=== PATIENT | female | born 1960 | race Caucasian/White ===

== ENCOUNTER → 2016-12-26 | Outpatient (CLI) | payer OTHER ==
--- NOTE | 2016-12-30 11:07 | MM ---
Reason for exam: screening (asymptomatic). Last mammogram was performed 1 year ago. History: Family history of breast cancer in aunt at age 47 and breast cancer in cousin. Benign left US cyst aspiration of the left breast, September 24, 2005. Benign US left CoreBiopsy of the left breast, September 24, 2005. Benign US left CoreBiopsy of the left breast, September 24, 2005. Took hormonal contraceptives for 4 years. Physical Findings: A clinical breast exam by your physician is recommended on an annual basis and results should be correlated with mammographic findings. MG Screening Mammo w CAD Bilateral CC and MLO view(s) were taken. Prior study comparison: December 26, 2015, bilateral MG screening mammo w CAD. December 07, 2014, bilateral MG diagnostic mammo w CAD NIK. December 01, 2013, bilateral MG screening mammo w CAD. The breast tissue is heterogeneously dense. This may lower the sensitivity of mammography. No significant changes when compared with prior studies. ASSESSMENT: Benign, BI-RAD 2 RECOMMENDATION: Routine screening mammogram of both breasts in 1 year.
== END | disposition home or self-care (01) ==
LOC: RADMAMWWP 09:51
PROVIDERS: ATTEND Family Medicine
DX: Z12.31 Encounter for screening mammogram for malignant neoplasm of breast (principal); Z80.3 Family history of malignant neoplasm of breast

== ENCOUNTER 2017-11-12 08:31 | Emergency (ER) | payer OTHER ==
--- NOTE | 2017-11-12 09:09 | ED ---
General Adult HPI - General Chief complaint: Chest Pain Stated complaint: Chest Pain Time Seen by Provider: 11/12/17 08:37 Source: patient, RN notes reviewed, old records reviewed Mode of arrival: EMS Limitations: no limitations - History of Present Illness Initial comments: This is a 77-year-old female to the ER for evaluation. This patient does say for evaluation regards to chest pain, abdominal pain. Pain radiating from her belly up to her throat. Patient never had similar issue of similar pain. Patient does suffer from fibromyalgia. Mild nausea no vomiting. No recent fevers no travel history no significant injuries. Patient denies any modifying factors for pain. Pain awoke her from sleep this morning and has been persistent, mildly worsening. She has had prior surgical history including gallbladder surgery. Pain is severe in abdomen going to her throat, feels polina aching pain - Related Data Home Medications Medication Instructions Recorded Confirmed Chlorthalidone [Hygroton] 25 mg PO DIRECTED 07/20/15 11/12/17 Cyclobenzaprine [Flexeril] 10 mg PO HS 07/20/15 11/12/17 Ergocalciferol [Vitamin D2] 50,000 unit PO Q7D 07/20/15 11/12/17 Ferrous Sulfate [Feosol] 325 mg PO DAILY 07/20/15 11/12/17 Folic Acid 1 mg PO DAILY 07/20/15 11/12/17 Hydroxychloroquine Sulfate 200 mg PO BID 07/20/15 11/12/17 [Plaquenil] Methotrexate Sodium [Methotrexate] 25 mg PO Q7D 07/20/15 11/12/17 Acetaminophen [Tylenol Arthritis] 650 mg PO Q8H PRN 11/12/17 11/12/17 Adalimumab [Humira Pen] 40 mg SQ [id number] 11/12/17 11/12/17 Albuterol Inhaler [Ventolin Hfa 2 puff INHALATION RT-Q6H PRN 11/12/17 11/12/17 Inhaler] Gabapentin [Neurontin] 300 mg PO BID@0800,1200 11/12/17 11/12/17 Gabapentin [Neurontin] 600 mg PO HS 11/12/17 11/12/17 Ipratropium [place] [Atrovent Hfa] 2 puff INHALATION RT-QID PRN 11/12/17 Lisinopril [Prinivil] 10 mg PO DIRECTED 11/12/17 11/12/17 Oxybutynin Chloride [Ditropan] 5 mg PO TID 11/12/17 11/12/17 Potassium Chloride [Klor-Con 10] 10 meq PO DAILY 11/12/17 11/12/17 QUEtiapine FUMARATE [SEROquel] 25 - 50 mg PO HS 11/12/17 11/12/17 Ranitidine HCl [Zantac] 150 mg PO BID 11/12/17 11/12/17 Sertraline HCl [Zoloft] 25 mg PO DAILY 11/12/17 11/12/17 Allergies Allergy/AdvReac Type Severity Reaction Status Date / Time phenobarbital Allergy rash & Verified 11/12/17 09:23 swells up Review of Systems ROS Statement: Those systems with pertinent positive or pertinent negative responses have been documented in the HPI. ROS Other: All systems not noted in ROS Statement are negative. Past Medical History Past Medical History: Hypertension, Rheumatoid Arthritis (RA) History of Any Multi-Drug Resistant Organisms: None Reported Past Surgical History: Section, Cholecystectomy Past Psychological History: No Psychological Hx Reported Smoking Status: Never smoker Past Alcohol Use History: None Reported Past Drug Use History: None Reported General Exam Limitations: no limitations General appearance: alert, anxious, in distress Head exam: Present: atraumatic, normocephalic, normal inspection Eye exam: Present: normal appearance, PERRL, EOMI. Absent: scleral icterus, conjunctival injection, periorbital swelling ENT exam: Present: normal exam, mucous membranes moist Neck exam: Present: normal inspection. Absent: tenderness, meningismus, lymphadenopathy Respiratory exam: Present: normal lung sounds bilaterally. Absent: respiratory distress, wheezes, rales, rhonchi, stridor Cardiovascular Exam: Present: regular rate, normal rhythm, normal heart sounds. Absent: systolic murmur, diastolic murmur, rubs, gallop, clicks GI/Abdominal exam: Present: soft, normal bowel sounds. Absent: distended, tenderness, guarding, rebound, rigid Extremities exam: Present: normal inspection, full ROM, normal capillary refill. Absent: tenderness, pedal edema, joint swelling, calf tenderness Back exam: Present: normal inspection Neurological exam: Present: alert, oriented X3, CN II-XII intact Psychiatric exam: Present: normal affect, normal mood Skin exam: Present: warm, dry, intact, normal color. Absent: rash Course Vital Signs 11/12/17 11/12/17 08:33 09:48 Temperature 98.5 F Pulse Rate 86 82 Respiratory 18 18 Rate Blood Pressure 149/78 148/103 O2 Sat by Pulse 98 95 Oximetry - Reevaluation(s) Reevaluation #1: 11/12/17 09:45 Patient has positive pain control, still complaining of mild nausea with epigastric abdominal pain Reevaluation #2: 11/12/17 10:45 Spoke with radiology regarding patient's findings Reevaluation #3: 11/12/17 10:45 Spoke with patient's family and patient regarding findings, questions answered regarding severity of illness, patient aware EKG Findings - EKG Comments: EKG Findings:: EKG shows sinus rhythm rate of 77, NM 164, QRS 82, QTc 466 Medical Decision Making - Medical Decision Making 57 female the ER for evaluation positive severe epigastric bowel pain chest pain. Positive significant irritation. Spoke with [facility] excess patient in transfer. Patient's blood pressure is stabilized here in the emergency room, patient will be transferred to [facility] - Lab Data Result diagrams: 11/12/17 08:43 11/12/17 08:43 Lab Results 11/12/17 11/12/17 11/12/17 Range/Units 08:43 08:43 08:43 WBC 8.0 (3.8-10.6) k/uL RBC 4.16 (3.80-5.40) m/uL Hgb 13.5 (11.4-16.0) gm/dL Hct 40.0 (34.0-46.0) % MCV 96.1 (80.0-100.0) fL MCH 32.4 (25.0-35.0) pg MCHC 33.7 (31.0-37.0) g/dL RDW 14.1 (11.5-15.5) % Plt Count 195 (150-450) k/uL Neutrophils % 66 % Lymphocytes % 25 % Monocytes % 5 % Eosinophils % 3 % Basophils % 1 % Neutrophils # 5.2 (1.3-7.7) k/uL Lymphocytes # 2.0 (1.0-4.8) k/uL Monocytes # 0.4 (0-1.0) k/uL Eosinophils # 0.2 (0-0.7) k/uL Basophils # 0.1 (0-0.2) k/uL PT (9.0-12.0) sec INR (<1.2) APTT (22.0-30.0) sec D-Dimer (<0.60) mg/L FEU Sodium 142 (137-145) mmol/L Potassium 4.2 (3.5-5.1) mmol/L Chloride 107 (98-107) mmol/L Carbon Dioxide 28 (22-30) mmol/L Anion Gap 7 mmol/L BUN 16 (7-17) mg/dL Creatinine 1.06 H (0.52-1.04) mg/dL Est GFR (CKD-EPI)AfAm 69 (>60 ml/min/1.73 sqM) Est GFR (CKD-EPI)NonAf 59 (>60 ml/min/1.73 sqM) Glucose 99 (74-99) mg/dL Calcium 9.7 (8.4-10.2) mg/dL Magnesium 2.1 (1.6-2.3) mg/dL Total Bilirubin 0.3 (0.2-1.3) mg/dL AST 28 (14-36) U/L ALT 31 (9-52) U/L Alkaline Phosphatase 56 (38-126) U/L Total Creatine Kinase 112 (30-135) U/L CK-MB (CK-2) 0.8 (0.0-2.4) ng/mL CK-MB (CK-2) Rel Index 0.7 Troponin I <0.012 (0.000-0.034) ng/mL NT-Pro-B Natriuret Pep pg/mL Total Protein 6.7 (6.3-8.2) g/dL Albumin 4.0 (3.5-5.0) g/dL Lipase 131 (23-300) U/L 11/12/17 11/12/17 Range/Units 08:43 08:43 WBC (3.8-10.6) k/uL RBC (3.80-5.40) m/uL Hgb (11.4-16.0) gm/dL Hct (34.0-46.0) % MCV (80.0-100.0) fL MCH (25.0-35.0) pg MCHC (31.0-37.0) g/dL RDW (11.5-15.5) % Plt Count (150-450) k/uL Neutrophils % % Lymphocytes % % Monocytes % % Eosinophils % % Basophils % % Neutrophils # (1.3-7.7) k/uL Lymphocytes # (1.0-4.8) k/uL Monocytes # (0-1.0) k/uL Eosinophils # (0-0.7) k/uL Basophils # (0-0.2) k/uL PT 10.1 (9.0-12.0) sec INR 1.0 (<1.2) APTT 21.0 L (22.0-30.0) sec D-Dimer 13.32 H (<0.60) mg/L FEU Sodium (137-145) mmol/L Potassium (3.5-5.1) mmol/L Chloride (98-107) mmol/L Carbon Dioxide (22-30) mmol/L Anion Gap mmol/L BUN (7-17) mg/dL Creatinine (0.52-1.04) mg/dL Est GFR (CKD-EPI)AfAm (>60 ml/min/1.73 sqM) Est GFR (CKD-EPI)NonAf (>60 ml/min/1.73 sqM) Glucose (74-99) mg/dL Calcium (8.4-10.2) mg/dL Magnesium (1.6-2.3) mg/dL Total Bilirubin (0.2-1.3) mg/dL AST (14-36) U/L ALT (9-52) U/L Alkaline Phosphatase (38-126) U/L Total Creatine Kinase (30-135) U/L CK-MB (CK-2) (0.0-2.4) ng/mL CK-MB (CK-2) Rel Index Troponin I (0.000-0.034) ng/mL NT-Pro-B Natriuret Pep 237 pg/mL Total Protein (6.3-8.2) g/dL Albumin (3.5-5.0) g/dL Lipase (23-300) U/L - Radiology Data Radiology results: report reviewed (CT angio chest abd pelvis is positive for aortic dissection), image reviewed Critical Care Time Critical Care Time: Yes Total Critical Care Time: 31 Disposition Clinical Impression: Acute thoracic aortic dissection Disposition: OTHER INSTITUTION NOT DEFINED Condition: Critical Is patient prescribed a controlled substance at d/c from ED?: No Referrals: Shana Schmidt DO [Primary Care Provider] - 1-2 days - Out of Hospital Transfer - Req. Specs Out of Hospital Transfer - Requested Specifics: Other Emergency Center ([facility])
[2017-11-12 09:10] LABS: Basophils # (A) 0.1 k/uL (0-0.2); Basophils % (A) 1 %; Eosinophils # (A) 0.2 k/uL (0-0.7); Eosinophils % (A) 3 %; HGB 13.5 gm/dL (11.4-16.0); Lymphocytes % (A) 25 %; MCH 32.4 pg (25.0-35.0); MCHC 33.7 g/dL (31.0-37.0); MCV 96.1 fL (80.0-100.0); Mean Platelet Volume 7.1; Monocytes # (A) 0.4 k/uL (0-1.0); Monocytes % (A) 5 %; Neutrophils # (A) 5.2 k/uL (1.3-7.7); Neutrophils % (A) 66 %; Platelet Count 195 k/uL (150-450); RBC 4.16 m/uL (3.80-5.40); RDW 14.1 % (11.5-15.5)
--- NOTE | 2017-11-12 09:11 | XR ---
EXAMINATION TYPE: XR chest 2V DATE OF EXAM: 11/12/2017 COMPARISON: Prior chest x-ray 11/26/2014 HISTORY: Chest pain, hypertension TECHNIQUE: Frontal and lateral views of the chest are obtained. FINDINGS: Patient is rotated and there are overlying cardiac leads. Minimal patchy basilar density ma y reflect atelectasis or scar. There is no focal air space opacity, pleural effusion, or pneumothorax seen. The cardiac silhouette size is within normal limits. There is thoracic spondylosis. The oss eous structures are intact. IMPRESSION: There may be some minimal basilar atelectasis or scarring.
[2017-11-12] MEDS ORDERED: MORPHINE SULFATE 4 MG/ML SYRINGE IVP STA (09:18)
[2017-11-12] MEDS ORDERED: LORazepam 2 MG/ML INJ IV STA (09:18)
[2017-11-12 09:20] LABS: Calcium 9.7 mg/dL (8.4-10.2); Magnesium 2.1 mg/dL (1.6-2.3); Potassium 4.2 mmol/L (3.5-5.1); Total Bilirubin 0.3 mg/dL (0.2-1.3); Total Protein 6.7 g/dL (6.3-8.2)
[2017-11-12] MEDS ORDERED: ONDANSETRON 4 MG/2 ML VIAL IVP STA (09:23)
[2017-11-12 09:32] LABS: Prothrombin Time 10.1 sec (9.0-12.0)
[2017-11-12 09:33] LABS: Creatine Kinase 112 U/L (30-135)
[2017-11-12 09:41] LABS: D-Dimer 13.32 mg/L FEU (<0.60)
[2017-11-12 09:45] LABS: Creatine Kinase MB 0.8 ng/mL (0.0-2.4); Troponin I <0.012 ng/mL (0.000-0.034)
[2017-11-12] MEDS ORDERED: LABETALOL 5 MG/ML VIAL MDV IVP STA (10:51)
[2017-11-12] MEDS ORDERED: METOPROLOL TARTRATE 5 MG/5 ML VIAL IVP STA (10:51)
--- NOTE | 2017-11-12 10:54 | CT ---
EXAMINATION TYPE: CT angio chest, CT abdomen pelvis w con DATE OF EXAM: 11/12/2017 COMPARISON: Radiograph same day HISTORY: 57-year-old female Chest and Abdominal pain TECHNIQUE: Contiguous axial scanning of the chest performed with IV Contrast, patient injected with 1 00 ml mL of Isovue 370. Coronal/sagittal MIP reconstructions performed. Scanning was continued along the abdomen and pelvis with contrast. Delayed images through the kidneys and coronal/sagittal reconst ructions performed. CT DLP: 1967.70 mGycm Automated exposure control for dose reduction was used. FINDINGS: Chest: Heart normal size with trace pericardial effusion. The ascending aorta is ectatic at 3.8 cm. There is acute intramural hematoma extending from the proxi mal arch at the level of the brachiocephalic artery. Acute intramural hematoma extends down into the upper abdomen. The descending thoracic aorta is ectatic at 2.8 cm with the opacified lumen measuring 1.8 cm. Borderline optimal satisfactory pulmonary arterial opacification. There is some limitations with resp iratory motion at the lung bases. No definite pulmonary embolus. Dependent atelectasis posterior lung bases. No pleural effusion. Calcified granuloma anterior right m idlung. No consolidation or pleural effusion. Some calcified lymph nodes in the mediastinum and rob compatible with prior granulomatous disease. ABDOMEN: The acute intramural hematoma transformed into a shelly dissection just proximal to the celiac axis or igin. The celiac axis, SMA, and left renal artery arise from the true lumen. The right renal artery a lso appears to extend from the true lumen but some motion limits optimal assessment. There is symmetr ic uptake and excretion of contrast from both kidneys. Difficult to say if the RAYMOND arises from the true or false lumen, axial image 44. Dissection flap exte nds to the aortic bifurcation. Some motion limits assessment as to if the dissection extends into the common iliac arteries, axial image 59 on the right and 58 on the left could be motion artifact or re present subtle dissection flap. There is equal enhancement in both the true and false lumens noted. Status post cholecystectomy. Mild prominence to the bile duct but with normal distal tapering. Adrena l glands, spleen, and pancreas appear within normal limits. Subcentimeter hypodensity medial mid to l ower pole right kidney too small for accurate CT characterization, likely cyst. Tiny fatty umbilical hernia. No dilated small bowel, free fluid, or free air. Mild to moderate stool burden and occasional left-sided colonic diverticulosis. Pelvis: Bladder urine distended. Uterus and ovaries are visualized. No abnormal fluid collection in the pelvi s or pelvic lymphadenopathy. Bones: Osteitis pubis. Right L5 hemisacralization. Degenerative changes lower lumbar spine. Additional degen erative changes of both shoulders. No osseous destructive process seen. IMPRESSION: 1. EXAM POSITIVE FOR ACUTE INTRAMURAL HEMATOMA INVOLVING THE THORACIC AORTA EXTENDING FROM THE PROXIM AL ARCH AT THE LEVEL OF THE BRACHIOCEPHALIC ARTERY. SATISFACTORY ARCH GREAT VESSEL OPACIFICATION. 2. THE INTRAMURAL HEMATOMA TRANSFORMS INTO A SHELLY DISSECTION IN THE UPPER ABDOMEN AND EXTENDS DOWN T O THE AORTIC BIFURCATION. THE CELIAC AXIS, SMA, AND BILATERAL RENAL ARTERIES ARISE FROM THE TRUE LUME N AND ARE APPROPRIATELY PERFUSED. ONLY THE RAYMOND IS DIFFICULT TO ASSESS AND EXTENDS FROM THE JUNCTION O F BOTH TRUE AND FALSE LUMENS. BOTH TRUE AND FALSE LUMEN HAVE EQUIVALENT OPACIFICATION. 3. UNABLE TO ADEQUATELY DETERMINE IF THE DISSECTION EXTENDS INTO THE COMMON ILIAC ARTERIES. THERE IS EITHER SOME ARTIFACT IN THE COMMON ILIAC ARTERIES OR SUBTLE DISSECTION FLAPS. Critical findings called to Dr. Roach in the ER at 10:35 AM.
[2017-11-12 11:06] VITALS: BP 145/89; PULSE 69; RESP 16; TEMP 97.8
== END 2017-11-12 11:04 | disposition other institution (70) ==
LOC: EC 08:31
DX: I71.01 Dissection of thoracic aorta (principal); R07.9 Chest pain, unspecified; I10 Essential (primary) hypertension; M06.9 Rheumatoid arthritis, unspecified; R10.13 Epigastric pain; R11.0 Nausea; Z79.899 Other long term (current) drug therapy; Z88.8 Allergy status to other drugs, medicaments and biological substances
CPT/HCPCS: 36415; 71046; 71275; 74177; 80053; 82550; 82553; 83690; 83735; 83880; 84484; 85025; 85379; 85610; 85730; 93005; 96374; 96375; 99291

== ENCOUNTER → 2018-01-13 | Outpatient (CLI) | payer OTHER ==
--- NOTE | 2018-01-13 12:01 | CT ---
EXAMINATION TYPE: CT chest abdomen w con DATE OF EXAM: 01/13/2018 COMPARISON: CTA chest November 12, 2017. CT abdomen and pelvis same date. HISTORY: Epigastric pain and left-sided chest pain. Known dissecting descending aorta. CT DLP: 1648 mGycm. Automated Exposure Control for Dose Reduction was Utilized. CONTRAST: CT scan of the thorax and abdomen are performed with oral and with IV Contrast, patient injected with 100 mL of Isovue 300. FINDINGS: CHEST: LUNGS: The lungs are grossly clear, there is no concerning parenchymal mass or nodule identified. T here is no pleural effusion or pneumothorax seen. The tracheobronchial tree is patent. MEDIASTINUM: There are no new greater than 1 cm noncalcified hilar or mediastinal lymph nodes. There are calcified AP window and right tracheobronchial lymph nodes redemonstrated. No cardiomegaly or pe ricardial effusion is seen. VASCULAR: Previously visualized intramural hematoma in the aortic arch is not clearly seen on current study nor involvement in the descending thoracic aorta is identified or is definitively less promine nt versus prior. The upper abdominal aorta shows less prominent intramural hematoma also with focal p osterior outpouching possible contained dissection axial image 52. There is visualization of dissecti on in the mid to distal aspects of the abdominal aorta seen best coronal image 40 with persistent con trast opacification into the false lumen, area of involvement is roughly 6 cm craniocaudal dimension by 2 cm transversely and the false lumen at this level. Dissection flap does not extend into the comm on iliac arterial bifurcation on current or prior study. Slight ectasia to the right common iliac art moises is unchanged from prior exam measuring up to 1.4 cm. No suspicious retroperitoneal fluid collecti on identified. There is patency of the celiac axis, SMA, RAYMOND, and bilateral renal arteries with right side originating from the false lumen. Slightly more prominent intramural hematoma suspected near IM A origin axial image 75 with some irregular soft tissue causing obliteration of fat plane at this lev el axial image 75. Exam slightly suboptimal as dissection protocol was not utilized. LIVER/GB: Cholecystectomy clips are redemonstrated. PANCREAS: No significant abnormality is seen. SPLEEN: No significant abnormality is seen. ADRENALS: No significant abnormality is seen. KIDNEYS: Subcentimeter low dense lesion right kidney medially mid to lower pole level series 7 image 33 is too small to further characterize but presumed benign. BOWEL: Oral contrast does not reach colonic level. There is no suspicious small or large bowel dilata tion. LYMPH NODES: No greater than 1cm abdominal lymph nodes are appreciated. OSSEOUS STRUCTURES: Slight S-shaped scoliosis to the thoracolumbar spine is present. There is mild t o moderate multilevel anterior and lateral spurring throughout the thoracic spine. OTHER: No significant additional abnormality is seen. IMPRESSION: Suboptimal study, there is improvement in intramural hematoma and length of aortic dissec tion with more focal dissection now identified in the mid to distal aorta. Slightly more prominent fa lse lumen however is noted at this level. Slightly more prominent irregularity near RAYMOND origin is not ed. Advise referral or review with cardiothoracic and/or endovascular surgeon due to change from prio r study.
== END | disposition home or self-care (01) ==
LOC: RADCTMAIN 09:32
PROVIDERS: ATTEND Family Medicine
DX: I71.02 Dissection of abdominal aorta (principal); I77.89 Other specified disorders of arteries and arterioles; I99.8 Other disorder of circulatory system
CPT/HCPCS: 71260; 74160; Q9967

== ENCOUNTER → 2018-02-09 | Outpatient (CLI) | payer OTHER ==
--- NOTE | 2018-02-09 16:52 | CONS ---
CONSULTATION REASON FOR EVALUATION: Sleep apnea. 37-year-old female patient, currently having trouble with her sleep. She is a poor historian. She is unable to give me details. She tells me that she is in pain and she wakes up frequently in the middle of the night either because of pain or sometimes for reasons that she is not sure. She is not clear if she snores or she has any witnessed apneas as the patient sleeps alone at home. She wakes up with dry mouth and she is quite tired and sleepy during the day. She takes frequent naps. Irvine Score is at 20. She has rheumatoid arthritis and fibromyalgia and has chronic pain. She was recently hospitalized at [facility] for an aortic arch and abdominal aortic aneurysm dissection. This was a stable dissection and no further surgical intervention was warranted and the patient was placed on beta blockers. She is not having any nausea or vomiting. No abdominal pain. No chest pain. Hemodynamically stable. Slightly bradycardic with a heart rate in the mid/high 40s. No recent weight gain or weight loss. No history of insomnia. No anxiety or depression. PAST MEDICAL HISTORY: 1. Aortic arch/abdominal aortic dissection. 2. RA. 3. Fibromyalgia. 4. Hypertension. 5. Depression. 6. Chronic back pain. PAST SURGICAL HISTORY: Includes cholecystectomy and . DRUG ALLERGIES: TO PHENOBARBITAL. OUTPATIENT MEDICATION: Include Seroquel, baclofen, Lipitor, hydrochloroquine. Ferrous sulfate, ranitidine, Zoloft, metoprolol, folate and Lisinopril. SOCIAL HISTORY: The patient is a nonsmoker. No history of alcohol. No history of IV drugs. FAMILY HISTORY: Negative for sleep apnea. REVIEW OF SYSTEMS: 12-point review of system was done and positive findings are mentioned above history of present illness. The patient goes to bed around 10:00 p.m. and she wakes up between 6 and 6:30 am in the morning. Her sleep is fragmented. She has been waking up tired and she feels sleepy during the day. She has no dentures. She has no bed partners. She sleeps in a comfortable bed and she sleeps on her side. Her weight has been stable. Her sleep is fragmented and she wakes up multiple occasions throughout the night. PHYSICAL EXAMINATION: BP is 127/74, pulse 49, respirations 16, temperature 98.6. Saturation 98% on room air. Height is 5 feet 6 inches. Weight is 210. Irvine score 20. BMI 33.8, neck size 16 inches. GENERAL APPEARANCE: Calm, comfortable. Head is atraumatic, normocephalic. NECK: Supple. Short neck. Crowding of posterior pharynx. There is no goiter or neck mass. Mallampati class IV. She has micrognathia and she has an obvious overbite. LUNGS: Clear to auscultation. HEART: Sounds regular rhythm. Normal S1, S2. No S3. No murmurs. ABDOMEN: Soft, nontender. No organomegaly. EXTREMITIES: No edema. No cyanosis or clubbing. Neurological: Alert and oriented times three. No focal neurological deficits. PSYCHIATRIC: Negative for anxiety or depression. IMPRESSION: 1. Excessive daytime sleepiness with sleep fragmentation rule out obstructive sleep apnea especially with the presence of anatomic features which include obesity Mallampati class 4. Overbite and micrognathia. 2. Chronic pain resulting in a sleep fragmentation. 3. Fibromyalgia. 4. Rheumatoid arthritis. 5. Recent hospitalization for thoracic and abdominal aortic dissection. This is a stable dissection. 6. Hypertension. 7. Chronic back pain. 8. Hyperlipidemia. PLAN: 1. Proceed with a screening polysomnogram. 2. We will review the results of sleep study. 3. We will make further recommendations accordingly. MMODL / IJN: [id number] /
== END ==
LOC: SLEEP 14:30
PROVIDERS: ATTEND Internal Medicine Critical Care Medicine
DX: R06.83 Snoring (principal); G47.10 Hypersomnia, unspecified; E66.9 Obesity, unspecified; G89.29 Other chronic pain; M79.7 Fibromyalgia; M06.9 Rheumatoid arthritis, unspecified; I71.03 Dissection of thoracoabdominal aorta; I10 Essential (primary) hypertension; M54.9 Dorsalgia, unspecified; E78.5 Hyperlipidemia, unspecified; Z79.899 Other long term (current) drug therapy; Z88.8 Allergy status to other drugs, medicaments and biological substances
CPT/HCPCS: 99211

== ENCOUNTER 2018-06-13 14:43 | Emergency (ER) | payer OTHER ==
[2018-06-13 14:47] VITALS: RESP 18; TEMP 97.6
--- NOTE | 2018-06-13 15:20 | XR ---
Left hand 3 views. History pain. Comparison none. FINDINGS: There is a nondisplaced transverse fracture across the base of the distal phalanx of the ring finger left hand. There is soft tissue swelling. There is no dislocation. There is moderate narrowing and sp urring at the first carpometacarpal joint. IMPRESSION: Osteoarthritis at the base of the thumb. Nondisplaced ring finger fracture as above.
--- NOTE | 2018-06-13 15:23 | ED ---
Upper Extremity HPI - General Chief Complaint: Extremity Injury, Upper Stated Complaint: finger injury Time Seen by Provider: 06/13/18 15:09 Source: patient Mode of arrival: wheelchair Limitations: no limitations - History of Present Illness Initial Comments: Patient's 57-year-old female who presents emergency department today for days after left ring finger injury. Patient reports that she had it smashed within the door handle. Patient reports that her nail fell off. Patient's that she did have some bleeding afterwards. The bleeding stopped. She continued complaining of increased pain over the distal tip of the finger. Tetanus shot is up-to-date. She is currently on antibiotics for upper respiratory infection. - Related Data Home Medications Medication Instructions Recorded Confirmed Chlorthalidone [Hygroton] 25 mg PO DIRECTED 07/20/15 11/12/17 Cyclobenzaprine [Flexeril] 10 mg PO HS 07/20/15 11/12/17 Ergocalciferol [Vitamin D2] 50,000 unit PO Q7D 07/20/15 11/12/17 Ferrous Sulfate [Feosol] 325 mg PO DAILY 07/20/15 11/12/17 Folic Acid 1 mg PO DAILY 07/20/15 11/12/17 Hydroxychloroquine Sulfate 200 mg PO BID 07/20/15 11/12/17 [Plaquenil] Methotrexate Sodium [Methotrexate] 25 mg PO Q7D 07/20/15 11/12/17 Acetaminophen [Tylenol Arthritis] 650 mg PO Q8H PRN 11/12/17 11/12/17 Adalimumab [Humira Pen] 40 mg SQ [id number] 11/12/17 11/12/17 Albuterol Inhaler [Ventolin Hfa 2 puff INHALATION RT-Q6H PRN 11/12/17 11/12/17 Inhaler] Gabapentin [Neurontin] 300 mg PO BID@0800,1200 11/12/17 11/12/17 Gabapentin [Neurontin] 600 mg PO HS 11/12/17 11/12/17 Ipratropium [place] [Atrovent Hfa] 2 puff INHALATION RT-QID PRN 11/12/17 Lisinopril [Prinivil] 10 mg PO DIRECTED 11/12/17 11/12/17 Oxybutynin Chloride [Ditropan] 5 mg PO TID 11/12/17 11/12/17 Potassium Chloride [Klor-Con 10] 10 meq PO DAILY 11/12/17 11/12/17 QUEtiapine FUMARATE [SEROquel] 25 - 50 mg PO HS 11/12/17 11/12/17 Ranitidine HCl [Zantac] 150 mg PO BID 11/12/17 11/12/17 Sertraline HCl [Zoloft] 25 mg PO DAILY 11/12/17 11/12/17 Allergies Allergy/AdvReac Type Severity Reaction Status Date / Time phenobarbital Allergy rash & Verified 06/13/18 14:47 swells up Review of Systems ROS Statement: Those systems with pertinent positive or pertinent negative responses have been documented in the HPI. ROS Other: All systems not noted in ROS Statement are negative. Past Medical History Past Medical History: Hypertension, Rheumatoid Arthritis (RA) History of Any Multi-Drug Resistant Organisms: None Reported Past Surgical History: Section, Cholecystectomy Past Psychological History: No Psychological Hx Reported Smoking Status: Never smoker Past Alcohol Use History: None Reported Past Drug Use History: None Reported General Exam - General Exam Comments Initial Comments: 57-year-old female. Alert and oriented. No distress. Limitations: no limitations General appearance: alert, in no apparent distress Head exam: Present: atraumatic, normocephalic, normal inspection Eye exam: Present: normal appearance, PERRL, EOMI. Absent: scleral icterus, conjunctival injection, periorbital swelling ENT exam: Present: normal exam, mucous membranes moist Neck exam: Present: normal inspection. Absent: tenderness, meningismus, lymphadenopathy Respiratory exam: Present: normal lung sounds bilaterally. Absent: respiratory distress, wheezes, rales, rhonchi, stridor Cardiovascular Exam: Present: regular rate, normal rhythm, normal heart sounds. Absent: systolic murmur, diastolic murmur, rubs, gallop, clicks GI/Abdominal exam: Present: soft, normal bowel sounds. Absent: distended, tenderness, guarding, rebound, rigid Extremities exam: Present: normal inspection, full ROM, normal capillary refill. Absent: tenderness, pedal edema, joint swelling, calf tenderness Left Upper Arm exam: Present: normal inspection, full ROM Elbow exam: Present: normal inspection, full ROM Forearm Wrist exam: Present: normal inspection, full ROM Hand Wrist exam: Present: normal inspection, full ROM, tenderness, swelling ( over dIP of left 4th digit. ) Hand L/R Back: 1 - acrylic nail avulsion, small laceration over cutticle. Vascular: Present: normal capillary refill Back exam: Present: normal inspection Neurological exam: Present: alert, oriented X3, CN II-XII intact Psychiatric exam: Present: normal affect, normal mood Course Vital Signs 06/13/18 06/13/18 14:43 15:39 Temperature 97.6 F Pulse Rate 63 77 Respiratory 18 18 Rate Blood Pressure 90/57 110/58 O2 Sat by Pulse 96 99 Oximetry Medical Decision Making - Medical Decision Making Patient is a 57 year old female complains of left fourth finger injury. Patient crushed it in door 4 days ago. Patient has swelling and pain to DIP of left fourth digit. Xray shows non displaced fracture of the DIP. She has small abrasion over the fingernail bed. She is currently on antibiotics at this time for URI. Discussed completing his antibiotics. Discussed falling up with hand specialist. Her nail bed is intact but acrylic nail was removed. I discussed strict return parameters with close follow-up with PCP. - Radiology Data Radiology results: report reviewed Hand x-ray shows osteophytes of the face. Nondisplaced ring fracture is noted. Transverse fracture of the base of the distal tip of the ring finger of the hand. Disposition Clinical Impression: Phalanx, distal fracture of finger, Open fracture Disposition: HOME SELF-CARE Condition: Good Instructions (If sedation given, give patient instructions): Finger Fracture ( ED) Additional Instructions: Patient is advised to follow-up with hand specialist. Wear the splint. Please complete antibiotics that you are already taking. Patient should return to the emergency department if any alarming signs or symptoms occur. Is patient prescribed a controlled substance at d/c from ED?: No Referrals: Shana Schmidt DO [Primary Care Provider] - 1-2 days Noé Wilkins DO [Medical Doctor] - 1-2 days Time of Disposition: 15:31
[2018-06-13 15:40] VITALS: BP 110/58; PULSE 77
== END 2018-06-13 15:40 | disposition home or self-care (01) ==
LOC: EC 14:43
DX: S62.665B Nondisplaced fracture of distal phalanx of left ring finger, initial encounter for open fracture (principal); M25.742 Osteophyte, left hand; J06.9 Acute upper respiratory infection, unspecified; I10 Essential (primary) hypertension; M06.9 Rheumatoid arthritis, unspecified; Z88.8 Allergy status to other drugs, medicaments and biological substances; Z79.899 Other long term (current) drug therapy; W23.0XXA Caught, crushed, jammed, or pinched between moving objects, initial encounter
CPT/HCPCS: 99283

== ENCOUNTER 2018-06-30 14:54 | Emergency (ER) | payer OTHER ==
[2018-06-30 15:09] VITALS: RESP 18
[2018-06-30] MEDS ORDERED: CEPHALEXIN 500 MG CAP PO STA (15:54)
[2018-06-30] MEDS ORDERED: CEPHALEXIN 500MG STARTER PACK 4 CAP BTL PO STA (15:54)
[2018-06-30] MEDS ORDERED: SULFAMETH-TMP DS STARTER PACK 2 TAB BTL PO STA (15:54)
[2018-06-30] MEDS ORDERED: SULFAMETHOX-TMP 800-160MG 1 EACH TAB PO STA (15:54)
--- NOTE | 2018-06-30 16:08 | ED ---
Upper Extremity HPI - General Chief Complaint: Skin/Abscess/Foreign Body Stated Complaint: Finger injury Time Seen by Provider: 06/30/18 15:33 Source: patient Mode of arrival: ambulatory Limitations: no limitations - History of Present Illness Initial Comments: This is a 57-year-old female the ER for evaluation of left middle finger pain. Patient was diagnosed with fracture about a month ago she was placed in a splint she was on antibiotics and was seen by orthopedics. Patient started last night she developed more pain in that right fingertip. Without any new trauma, initial troponin showing hand in a door. She states redness increased last night into today. MD Complaint: Injury to:: left, finger -: month(s) Other Extremity Injury: Fingers: Left (Finger) Other Injuries: none Handedness: right Place: home Severity scale (1-10): 6 Improves With: immobilization Worsens With: movement of extremity Context: direct blow Associated Symptoms: denies other symptoms - Related Data Home Medications Medication Instructions Recorded Confirmed Chlorthalidone [Hygroton] 25 mg PO DIRECTED 07/20/15 11/12/17 Cyclobenzaprine [Flexeril] 10 mg PO HS 07/20/15 11/12/17 Ergocalciferol [Vitamin D2] 50,000 unit PO Q7D 07/20/15 11/12/17 Ferrous Sulfate [Feosol] 325 mg PO DAILY 07/20/15 11/12/17 Folic Acid 1 mg PO DAILY 07/20/15 11/12/17 Hydroxychloroquine Sulfate 200 mg PO BID 07/20/15 11/12/17 [Plaquenil] Methotrexate Sodium [Methotrexate] 25 mg PO Q7D 07/20/15 11/12/17 Acetaminophen [Tylenol Arthritis] 650 mg PO Q8H PRN 11/12/17 11/12/17 Adalimumab [Humira Pen] 40 mg SQ [id number] 11/12/17 11/12/17 Albuterol Inhaler [Ventolin Hfa 2 puff INHALATION RT-Q6H PRN 11/12/17 11/12/17 Inhaler] Gabapentin [Neurontin] 300 mg PO BID@0800,1200 11/12/17 11/12/17 Gabapentin [Neurontin] 600 mg PO HS 11/12/17 11/12/17 Ipratropium [place] [Atrovent Hfa] 2 puff INHALATION RT-QID PRN 11/12/17 Lisinopril [Prinivil] 10 mg PO DIRECTED 11/12/17 11/12/17 Oxybutynin Chloride [Ditropan] 5 mg PO TID 11/12/17 11/12/17 Potassium Chloride [Klor-Con 10] 10 meq PO DAILY 11/12/17 11/12/17 QUEtiapine FUMARATE [SEROquel] 25 - 50 mg PO HS 11/12/17 11/12/17 Ranitidine HCl [Zantac] 150 mg PO BID 11/12/17 11/12/17 Sertraline HCl [Zoloft] 25 mg PO DAILY 11/12/17 11/12/17 Previous Rx's Medication Instructions Recorded Cephalexin [Keflex] 500 mg PO Q6HR #40 cap 06/30/18 Sulfamethox-Tmp 800-160Mg [Bactrim 2 tab PO BID #40 tab 06/30/18 DS 800-160 mg] Allergies Allergy/AdvReac Type Severity Reaction Status Date / Time phenobarbital Allergy rash & Verified 06/30/18 15:09 swells up Review of Systems ROS Statement: Those systems with pertinent positive or pertinent negative responses have been documented in the HPI. ROS Other: All systems not noted in ROS Statement are negative. Past Medical History Past Medical History: Hypertension, Rheumatoid Arthritis (RA) History of Any Multi-Drug Resistant Organisms: None Reported Past Surgical History: Section, Cholecystectomy Past Psychological History: No Psychological Hx Reported Smoking Status: Never smoker Past Alcohol Use History: None Reported Past Drug Use History: None Reported General Exam - General Exam Comments Initial Comments: Patient does have erythema and tenderness to the DIP joint of the left middle finger. Limitations: no limitations General appearance: alert, in no apparent distress Head exam: Present: atraumatic, normocephalic, normal inspection Eye exam: Present: normal appearance, PERRL, EOMI. Absent: scleral icterus, conjunctival injection, periorbital swelling ENT exam: Present: normal exam, mucous membranes moist Neck exam: Present: normal inspection. Absent: tenderness, meningismus, lymphadenopathy Respiratory exam: Present: normal lung sounds bilaterally. Absent: respiratory distress, wheezes, rales, rhonchi, stridor Cardiovascular Exam: Present: regular rate, normal rhythm, normal heart sounds. Absent: systolic murmur, diastolic murmur, rubs, gallop, clicks GI/Abdominal exam: Present: soft, normal bowel sounds. Absent: distended, tenderness, guarding, rebound, rigid Extremities exam: Present: normal inspection, full ROM, normal capillary refill. Absent: tenderness, pedal edema, joint swelling, calf tenderness Back exam: Present: normal inspection Neurological exam: Present: alert, oriented X3, CN II-XII intact Psychiatric exam: Present: normal affect, normal mood Skin exam: Present: warm, dry, intact, normal color. Absent: rash Course Vital Signs 06/30/18 06/30/18 15:05 17:00 Temperature 98.1 F 98.0 F Pulse Rate 60 57 L Respiratory 18 18 Rate Blood Pressure 117/66 119/74 O2 Sat by Pulse 98 98 Oximetry - Reevaluation(s) Reevaluation #1: Medical record is reviewed including prior ER visit Patient discussed at length need to take antibiotics and follow-up again with orthopedics No abscess noted on exam Medical Decision Making - Medical Decision Making 57 female the ER for evaluation of left goldy fracture, patient also has erythema to the joint to the distal tip of the finger. Patient will be placed on antibiotics to follow-up with orthopedics tomorrow - Radiology Data Radiology results: report reviewed (X-ray hand is positive for left middle finger fracture), image reviewed Disposition Clinical Impression: Phalanx, distal fracture of finger Narrative: Finger Tip Fracture w Cellulitis Disposition: HOME SELF-CARE Condition: Good Instructions (If sedation given, give patient instructions): Finger Fracture ( ED), Cellulitis (ED) Prescriptions: Cephalexin [Keflex] 500 mg PO Q6HR #40 cap Sulfamethox-Tmp 800-160Mg [Bactrim DS 800-160 mg] 2 tab PO BID #40 tab Is patient prescribed a controlled substance at d/c from ED?: No Referrals: Cristi Carrasco MD [STAFF PHYSICIAN] - 1-2 days
[2018-06-30] MEDS ORDERED: ACETAMINOPHEN TAB 500 MG TAB PO STA (16:17)
[2018-06-30] MEDS ORDERED: IBUPROFEN 800 MG TAB PO STA (16:17)
--- NOTE | 2018-06-30 16:17 | XR ---
Left hand HISTORY: Pain and swelling distal fourth digit, fracture 3 views of the left hand correlated to prior exam 06/13/2017 Possible intra-articular, proximal aspect distal phalangeal fracture shows minimal displacement or po ssible local bone resorption of the fourth digit left hand is again noted. Small ossific densities ar e present dorsally compatible with comminution. There is no dislocation. No other significant interva l change. IMPRESSION: Fourth digit fracture
[2018-06-30 17:02] VITALS: BP 119/74; PULSE 57; TEMP 98
== END 2018-06-30 17:00 | disposition home or self-care (01) ==
LOC: EC 14:54
DX: S62.633D Displaced fracture of distal phalanx of left middle finger, subsequent encounter for fracture with routine healing (principal); I10 Essential (primary) hypertension; M06.9 Rheumatoid arthritis, unspecified; Z79.899 Other long term (current) drug therapy; Z88.8 Allergy status to other drugs, medicaments and biological substances; X58.XXXD Exposure to other specified factors, subsequent encounter
CPT/HCPCS: 99284

== ENCOUNTER → 2018-07-06 | Outpatient (CLI) | payer OTHER ==
--- NOTE | 2018-07-06 16:01 | PN ---
PROGRESS NOTE Yuly is a 57-year-old female patient who is coming in for a compliance check regarding obstructive sleep apnea. This patient was diagnosed having severe CONSTANCE with an AHI of 63. The patient was started on a CPAP pressure of 10 cm of water. The patient is coming in today for a compliancy check. She is benefitting from the treatment. She is wearing her CPAP every night. She reports marked improvement in sleep quality and she is waking up much more refreshed and alert during the day. Greene score is down to 5. She is using a CPAP pressure of 10 cm of water and based on the compliance data over the past 30 days, the patient utilized CPAP more than 4 hours and she is averaging about 5.6 hours per night. Her CPAP use for more than 4 hours. 26 out of 30. She is having excessive leaks around the nose mask, DreamWear nose mask leak 71 L/minute. The patient's AHI is down to 3 while on treatment. She is considering a full-face mask due to ongoing leak probably from her mouth. No snoring while on CPAP treatment unless she leaks from her mouth. No grinding. No other complaints otherwise for now. REVIEW OF SYSTEMS: No recent weight gain or weight loss. No headache. No altered mentation. She has history of grinding inactive for now. She has history of chronic pain and fibromyalgia and rheumatoid arthritis. No nausea or vomiting. No abdominal pain. No chest pain. No shortness of breath. No cough or sputum production, chest tightness, wheezing. No headaches. No other complaints otherwise. Twelve point review of system was done and positive findings are mentioned above in the history of present illness. PHYSICAL EXAMINATION: BP is 131/66, pulse 63, respirations 16, temperature 97.6. Saturation 98% on room air. Weight is 236, saturation 98% on room air. GENERAL APPEARANCE: Calm, comfortable. Head is atraumatic, normocephalic. NECK: Supple. No JVD. No goiter or neck masses. Mallampati class IV. LUNGS: Clear to auscultation. HEART: Sounds regular rate and rhythm. Normal S1, S2. No murmurs. ABDOMEN: Soft, nontender. No organomegaly. EXTREMITIES: No edema. No cyanosis or clubbing. NEUROLOGIC: Alert and oriented x3. There is no focal neurological deficits. PSYCHIATRIC: Negative for anxiety or depression. SKIN: Negative for wounds or ulceration. IMPRESSION: 1. Severe obstructive sleep apnea AHI of 63. Currently on CPAP at a pressure of 10 with good clinical response and compliance. 2. Excessive leaks around the nose mask. We will be looking for a full-face mask. 3. Loud snoring recovered. 4. Hypersomnia, recovered. The patient Greene score is down to 5. 5. Sleep fragmentation improved with CPAP therapy. 6. History of grinding of the teeth. 7. Fibromyalgia and chronic pain. 8. Rheumatoid arthritis. 9. Hypertension. 10.Chronic pain. 11.Hyperlipidemia. PLAN: 1. We will offer this patient Dream Wear full face mask small size. 2. Encourage using CPAP with a pressure of 10. 3. Weight loss. 4. The patient is benefitting from the treatment. Compliance data was checked. 5. She will continue her treatment. 6. She will see me back in a year's time in follow up, earlier if needed. 7. This is a successful treatment. MMODL / IJN: [id number] / OLIVIA
== END | disposition home or self-care (01) ==
LOC: SLEEP 13:16
PROVIDERS: ATTEND Internal Medicine Critical Care Medicine
DX: G47.33 Obstructive sleep apnea (adult) (pediatric) (principal); G89.29 Other chronic pain; M79.7 Fibromyalgia; M06.9 Rheumatoid arthritis, unspecified; I10 Essential (primary) hypertension; E78.5 Hyperlipidemia, unspecified; Z99.89 Dependence on other enabling machines and devices

== ENCOUNTER 2018-07-14 12:01 | Inpatient (IN) | payer OTHER ==
--- NOTE | 2018-07-14 12:29 | ED ---
General Adult HPI - General Chief complaint: Shortness of Breath Stated complaint: Blood Clot in Lung Time Seen by Provider: 07/14/18 12:12 Source: patient, family, RN notes reviewed Mode of arrival: ambulatory Limitations: no limitations - History of Present Illness Initial comments: Patient is a pleasant 57-year-old female presenting to the emergency department after abnormal computed tomography scan. Patient reports that she was told she had a blood clot. Patient states she has had some mild discomfort left lower chest as well as dyspnea over the past couple of weeks. Patient thought it was just her asthma acting up. Patient states she went to her doctor and they ordered the CAT scan. Patient states she does have a known history of aortic dissection in her abdomen diagnosed in October. Patient states she was evaluated at [facility] for this however treatment is only medical. Patient has no abdominal symptoms since that time. - Related Data Home Medications Medication Instructions Recorded Confirmed Ferrous Sulfate [Feosol] 325 mg PO DAILY 07/20/15 07/14/18 Folic Acid 1 mg PO DAILY 07/20/15 07/14/18 Hydroxychloroquine Sulfate 200 mg PO BID 07/20/15 07/14/18 [Plaquenil] Adalimumab [Humira Pen] 40 mg SQ [id number] 11/12/17 07/14/18 Albuterol Inhaler [Ventolin Hfa 2 puff INHALATION RT-Q6H PRN 11/12/17 07/14/18 Inhaler] Ipratropium [place] [Atrovent Hfa] 2 puff INHALATION RT-QID PRN 11/12/17 07/14/18 Ranitidine HCl [Zantac] 150 mg PO BID 11/12/17 07/14/18 Acetaminophen Tab [Tylenol] 1,000 mg PO Q8H 07/14/18 07/14/18 Albuterol Inhaler [Ventolin Hfa 2 puff INHALATION RT-Q12H PRN 07/14/18 07/14/18 Inhaler] Gabapentin [Neurontin] 300 mg PO HS 07/14/18 07/14/18 Lidocaine HCl [Aspercreme] 1 applic TOPICAL DAILY PRN 07/14/18 07/14/18 Methotrexate 50mg/2ml 25 mg IM Q7D 07/14/18 Metoprolol Tartrate [Lopressor] 50 mg PO BID 07/14/18 07/14/18 Oxybutynin Chloride [Ditropan] 5 mg PO BID 07/14/18 07/14/18 QUEtiapine [SEROquel] 100 mg PO HS 07/14/18 07/14/18 Sertraline [Zoloft] 50 mg PO DAILY 07/14/18 07/14/18 predniSONE See Taper PO DIRECTED 07/14/18 07/14/18 prednisoLONE ACETATE [Pred Forte 1 drop BOTH EYES DAILY PRN 07/14/18 07/14/18 1%] Previous Rx's Medication Instructions Recorded Cephalexin [Keflex] 500 mg PO Q6HR #40 cap 06/30/18 Allergies Allergy/AdvReac Type Severity Reaction Status Date / Time phenobarbital Allergy rash & Verified 07/14/18 12:44 swells up Review of Systems ROS Statement: Those systems with pertinent positive or pertinent negative responses have been documented in the HPI. ROS Other: All systems not noted in ROS Statement are negative. Constitutional: Denies: fever Eyes: Denies: eye pain ENT: Denies: ear pain Respiratory: Reports: as per HPI, dyspnea Cardiovascular: Reports: as per HPI, chest pain Endocrine: Denies: fatigue Gastrointestinal: Denies: abdominal pain Genitourinary: Denies: dysuria Musculoskeletal: Denies: back pain Skin: Denies: rash Neurological: Denies: weakness Past Medical History Past Medical History: Hypertension, Rheumatoid Arthritis (RA) History of Any Multi-Drug Resistant Organisms: None Reported Past Surgical History: Section, Cholecystectomy Past Psychological History: No Psychological Hx Reported Smoking Status: Never smoker Past Alcohol Use History: None Reported Past Drug Use History: None Reported General Exam Limitations: no limitations General appearance: alert, in no apparent distress Head exam: Present: atraumatic Eye exam: Present: normal appearance Neck exam: Present: normal inspection Respiratory exam: Present: normal lung sounds bilaterally. Absent: chest wall tenderness Cardiovascular Exam: Present: regular rate, normal rhythm Expanded Peripheral pulses: 2+: Posterior Tibialis (R), Posterior Tibialis (L) GI/Abdominal exam: Present: soft. Absent: distended, tenderness, pulsatile mass Extremities exam: Present: normal inspection. Absent: pedal edema, calf tenderness Neurological exam: Present: alert Psychiatric exam: Present: normal affect, normal mood Skin exam: Present: normal color Course Vital Signs 07/14/18 07/14/18 12:07 12:45 Temperature 98 F Pulse Rate 80 69 Respiratory 18 18 Rate Blood Pressure 114/74 124/76 O2 Sat by Pulse 96 98 Oximetry - Reevaluation(s) Reevaluation #1: 07/14/18 12:42 Dr. Rutherford has been paged 07/14/18 13:20 Case was discussed in detail with Dr. Rutherford, who will admit covering for Dr. Schmidt. He does recommend discussing case with the aerial installer, Dr. Akers prior to heparinization. Case was discussed with Dr. Akers. He did also discuss case with Dr. Coleman and consensus was to heparinize patient. Dr. Vázquez has also been paged for consult. 07/14/18 14:09 Case was also discussed with Dr. Vázquez who is made aware of patient including heparinization and history of dissection. He will consult. He does also request bilateral venous ultrasounds. EKG Findings - EKG Comments: EKG Findings:: Normal sinus rhythm 66. KS 160. QRS 72. QT 402. QTC 421. Left axis. Inferior Q waves. Q wave in lead V3. No acute ST change. Medical Decision Making - Lab Data Result diagrams: 07/14/18 12:38 07/14/18 12:38 Lab Results 07/14/18 07/14/18 07/14/18 Range/Units 12:38 12:38 12:38 WBC 8.4 (3.8-10.6) k/uL RBC 4.13 (3.80-5.40) m/uL Hgb 13.2 (11.4-16.0) gm/dL Hct 41.1 (34.0-46.0) % MCV 99.5 (80.0-100.0) fL MCH 31.9 (25.0-35.0) pg MCHC 32.0 (31.0-37.0) g/dL RDW 16.1 H (11.5-15.5) % Plt Count 231 (150-450) k/uL Neutrophils % 73 % Lymphocytes % 19 % Monocytes % 5 % Eosinophils % 2 % Basophils % 0 % Neutrophils # 6.1 (1.3-7.7) k/uL Lymphocytes # 1.6 (1.0-4.8) k/uL Monocytes # 0.4 (0-1.0) k/uL Eosinophils # 0.2 (0-0.7) k/uL Basophils # 0.0 (0-0.2) k/uL Anisocytosis Slight Macrocytosis Slight PT 9.8 (9.0-12.0) sec INR 0.9 (<1.2) APTT 21.7 L (22.0-30.0) sec Sodium 139 (137-145) mmol/L Potassium 5.0 (3.5-5.1) mmol/L Chloride 108 H (98-107) mmol/L Carbon Dioxide 24 (22-30) mmol/L Anion Gap 7 mmol/L BUN 19 H (7-17) mg/dL Creatinine 0.79 (0.52-1.04) mg/dL Est GFR (CKD-EPI)AfAm >90 (>60 ml/min/1.73 sqM) Est GFR (CKD-EPI)NonAf 85 (>60 ml/min/1.73 sqM) Glucose 96 (74-99) mg/dL Calcium 9.6 (8.4-10.2) mg/dL Magnesium 2.4 H (1.6-2.3) mg/dL Total Bilirubin 0.6 (0.2-1.3) mg/dL AST 23 (14-36) U/L ALT 20 (9-52) U/L Alkaline Phosphatase 61 (38-126) U/L Troponin I (0.000-0.034) ng/mL Total Protein 7.5 (6.3-8.2) g/dL Albumin 4.1 (3.5-5.0) g/dL 07/14/18 Range/Units 12:38 WBC (3.8-10.6) k/uL RBC (3.80-5.40) m/uL Hgb (11.4-16.0) gm/dL Hct (34.0-46.0) % MCV (80.0-100.0) fL MCH (25.0-35.0) pg MCHC (31.0-37.0) g/dL RDW (11.5-15.5) % Plt Count (150-450) k/uL Neutrophils % % Lymphocytes % % Monocytes % % Eosinophils % % Basophils % % Neutrophils # (1.3-7.7) k/uL Lymphocytes # (1.0-4.8) k/uL Monocytes # (0-1.0) k/uL Eosinophils # (0-0.7) k/uL Basophils # (0-0.2) k/uL Anisocytosis Macrocytosis PT (9.0-12.0) sec INR (<1.2) APTT (22.0-30.0) sec Sodium (137-145) mmol/L Potassium (3.5-5.1) mmol/L Chloride (98-107) mmol/L Carbon Dioxide (22-30) mmol/L Anion Gap mmol/L BUN (7-17) mg/dL Creatinine (0.52-1.04) mg/dL Est GFR (CKD-EPI)AfAm (>60 ml/min/1.73 sqM) Est GFR (CKD-EPI)NonAf (>60 ml/min/1.73 sqM) Glucose (74-99) mg/dL Calcium (8.4-10.2) mg/dL Magnesium (1.6-2.3) mg/dL Total Bilirubin (0.2-1.3) mg/dL AST (14-36) U/L ALT (9-52) U/L Alkaline Phosphatase (38-126) U/L Troponin I <0.012 (0.000-0.034) ng/mL Total Protein (6.3-8.2) g/dL Albumin (3.5-5.0) g/dL Critical Care Time Critical Care Time: Yes Total Critical Care Time: 35 Disposition Clinical Impression: Pulmonary embolism Disposition: ADMITTED IP TO THIS [facility] Is patient prescribed a controlled substance at d/c from ED?: No Decision Time: 13:21
[2018-07-14 12:51] LABS: Anisocytosis Slight; Basophils % (A) 0 %; Eosinophils # (A) 0.2 k/uL (0-0.7); Eosinophils % (A) 2 %; HCT 41.1 % (34.0-46.0); HGB 13.2 gm/dL (11.4-16.0); Lymphocytes # (A) 1.6 k/uL (1.0-4.8); Lymphocytes % (A) 19 %; MCH 31.9 pg (25.0-35.0); MCV 99.5 fL (80.0-100.0); Macrocytosis Slight; Mean Platelet Volume 6.6; Monocytes # (A) 0.4 k/uL (0-1.0); Monocytes % (A) 5 %; Neutrophils # (A) 6.1 k/uL (1.3-7.7); Neutrophils % (A) 73 %; Platelet Count 231 k/uL (150-450); RBC 4.13 m/uL (3.80-5.40); RDW 16.1 % (11.5-15.5); WBC 8.4 k/uL (3.8-10.6)
[2018-07-14 12:57] LABS: ALT 20 U/L (9-52); AST 23 U/L (14-36); Albumin 4.1 g/dL (3.5-5.0); Alkaline Phosphatase 61 U/L (38-126); Anion Gap 7 mmol/L; Blood Urea Nitrogen 19 mg/dL (7-17); Calcium 9.6 mg/dL (8.4-10.2); Carbon Dioxide 24 mmol/L (22-30); Chloride 108 mmol/L (98-107); Glucose 96 mg/dL (74-99); Magnesium 2.4 mg/dL (1.6-2.3); Sodium 139 mmol/L (137-145); Total Bilirubin 0.6 mg/dL (0.2-1.3); Total Protein 7.5 g/dL (6.3-8.2)
[2018-07-14 13:01] LABS: INR 0.9 (<1.2); Partial Thromboplastin Time 21.7 sec (22.0-30.0); Prothrombin Time 9.8 sec (9.0-12.0)
[2018-07-14] MEDS ORDERED: HEPARIN SODIUM,PORCINE 10,000 UNIT/ML 1 ML VIAL IV ONE (13:15)
[2018-07-14] MEDS ORDERED: HEPARIN SODIUM,PORCINE 5,000 UNIT/ML 1 ML VIAL IV PRN (13:15)
[2018-07-14] MEDS ORDERED: NALOXONE 0.4 MG/ML 1 ML VIAL IV PRN (13:23)
[2018-07-14] MEDS: HEPARIN SOD,PORK IN 0.45% NACL 25,000 UNIT in 0.45% NACL 1 250ML.BAG IV SCH (14:24)
--- NOTE | 2018-07-14 15:18 | US ---
EXAMINATION TYPE: US venous doppler duplex LE DATE OF EXAM: 07/14/2018 2:59 PM COMPARISON: NONE CLINICAL HISTORY: thrombus. PE SIDE PERFORMED: Bilateral TECHNIQUE: The lower extremity deep venous system is examined utilizing real time linear array sonog favian with graded compression, doppler sonography and color-flow sonography. VESSELS IMAGED: External Iliac Vein (EIV) Common Femoral Vein Deep Femoral Vein Greater Saphenous Vein * Femoral Vein Popliteal Vein Small Saphenous Vein * Proximal Calf Veins (* superficial vessels) Low-level internal echoes are present within the bilateral popliteal veins, there is decreased color flow Right Leg: +Positive for DVT right popliteal vein. Thrombus noted mid popliteal vein Left Leg: *Positive for DVT left popliteal vein distal IMPRESSION: Bilateral deep venous thrombosis as described.
[2018-07-14] MEDS ORDERED: INFLUENZA VACCINE (6 MOS+) 60 MCG/0.5 ML SYRINGE IM ONE (16:07)
--- NOTE | 2018-07-14 16:56 | P.CNPUL ---
History of Present Illness Consult date: 07/14/18 Reason for consult: pulmonary embolism History of present illness: This is a 57-year-old patient was sent to the emergency department because of the normal CAT scan of the chest. The patient had a cardiac evaluation today and during her evaluation the patient was complaining of increased shortness of breath and pain that was somewhat pleuritic along the left side of the chest that is going on for the past 2 weeks. For that reason the patient had a CT angiogram that showed a old dissection in the mid and the distal abdominal aorta that has been stable and less prominent compared to the previous CAT scan from 2018. There was also an increasing neurothrombus and the false lumen and this was noted. At the same time, it was noted that the patient has new lobar pulmonary embolism in the lingula in the left lower lobe with segmental e xtension. For that reason, the patient was sent to the emergency department. I reviewed the records. I saw the patient was in the hospital back in October 2007 and at that time she was diagnosed having a aortic arch and abdominal aortic dissection. The patient was transferred to [facility] pH she was diagnosed having a stable dissection and no further surgical intervention was warranted and the patient was placed on beta blockers and the patient was discharged home. The patient states that she has been quite active. No sedentary lifestyle. No recent surgeries. No previous history of DVT or pulmonary embolism. No 70 bleeding complications. She is known to have rheumatoid arthritis, fibromyalgia, hypertension and depression and chronic back pain. Furthermore, the patient underwent a recent sleep evaluation sleep center and the patient was found to have severe CONSTANCE with an AHI of 63.2 and the patient was titrated to a CPAP pressure of 10 cm of water. Doppler of the lower extremity was positive for DVT in the right popliteal and left popliteal veins and the patient was diagnosed having bilateral lower extremity DVT. No trauma to the legs. No calf pain or tenderness no swelling in lower extremities bilaterally. She has chronic varicose veins. No hemoptysis. Hemodynamically stable at this point in time. Pulse oxing approximately a 9% on 2 L of oxygen by nasal cannula. Review of Systems Constitutional: Reports chronic pain, Reports daytime sleepiness, Reports weight gain Eyes: denies as per HPI, denies blurred vision, denies bulging eye, denies decreased vision, denies diplopia, denies discharge, denies dry eye, denies irritation, denies itching, denies pain, denies photophobia, denies loss of peripheral vision, denies loss of vision, denies tunnel vision/blind spots Ears: deny: decreased hearing, ear discharge, earache, tinnitus Ears, nose, mouth and throat: Denies headache, Denies sore throat Breasts: absent: as per HPI, change in shape, gynecomastia, masses, nipple discharge, pain, skin changes, swelling Cardiovascular: Reports chest pain, Reports decreased exercise tolerance, Re ports dyspnea on exertion, Reports shortness of breath Respiratory: Reports dyspnea, Reports sleep apnea Gastrointestinal: Denies abdominal pain, Denies diarrhea, Denies nausea, Denies vomiting Genitourinary: Reports as per HPI Menstruation: Reports as per HPI Musculoskeletal: Reports as per HPI Musculoskeletal: absent: ankle pain, ankle stiffness, ankle swelling, as per HPI, elbow pain, elbow stiffness, elbow swelling, foot pain, foot stiffness, foot swelling, hand pain, hand stiffness, hand swelling, hip pain, hip stiffness, hip swelling, knee pain, knee stiffness, knee swelling, shoulder pain, shoulder stiffness, shoulder swelling, wrist pain, wrist stiffness, wrist swelling Integumentary: Denies pruritus, Denies rash Neurological: Reports weakness Psychiatric: Reports change in sleep habits, Reports sleep disturbances Endocrine: Reports as per HPI Hematologic/Lymphatic: Reports as per HPI Past Medical History Past Medical History: Asthma, Hypertension, Rheumatoid Arthritis (RA), Vascular Disorder Additional Past Medical History / Comment(s): Obesity, aortic dissection involving the thoracic arch and descending aorta diagnosed back in October 2017 and has been stable since, rheumatoid arthritis, fibromyalgia, osteoarthritis, severe obstructive sleep apnea with an AHI of 63 maintained on CPAP pressure of 10 cm of water, hypertension, peripheral vascular disease, chronic anemia, history of left breast cysts, history of depression, chronic back pain, hypertension History of Any Multi-Drug Resistant Organisms: None Reported Past Surgical History: Section, Cholecystectomy, Tubal Ligation Additional Past Surgical History / Comment(s): Colonoscopy Past Anesthesia/Blood Transfusion Reactions: No Reported Reaction Smoking Status: Never smoker - Past Family History Father Family Medical History: Myocardial Infarction (CT) Additional Family Medical History / Comment(s): Father of a CT at the age of 36 yrs. Mother Family Medical History: No Reported History Additional Family Medical History / Comment(s): Mother is healthy and 75 yrs old. Medications and Allergies Home Medications Medication Instructions Recorded Confirmed Type Ferrous Sulfate [Feosol] 325 mg PO DAILY 07/20/15 07/14/18 History Folic Acid 1 mg PO DAILY 07/20/15 07/14/18 History Hydroxychloroquine Sulfate 200 mg PO BID 07/20/15 07/14/18 History [Plaquenil] Adalimumab [Humira Pen] 40 mg SQ [id number] 11/12/17 07/14/18 History Albuterol Inhaler [Ventolin Hfa 2 puff INHALATION RT-Q6H PRN 11/12/17 07/14/18 History Inhaler] Ipratropium [place] [Atrovent Hfa] 2 puff INHALATION RT-QID PRN 11/12/17 07/14/18 History Ranitidine HCl [Zantac] 150 mg PO BID 11/12/17 07/14/18 History Cephalexin [Keflex] 500 mg PO Q6HR #40 cap 06/30/18 07/14/18 Rx Acetaminophen Tab [Tylenol] 1,000 mg PO Q8H 07/14/18 07/14/18 History Albuterol Inhaler [Ventolin Hfa 2 puff INHALATION RT-Q12H PRN 07/14/18 07/14/18 History Inhaler] Gabapentin [Neurontin] 300 mg PO HS 07/14/18 07/14/18 History Lidocaine HCl [Aspercreme] 1 applic TOPICAL DAILY PRN 07/14/18 07/14/18 History Methotrexate 50mg/2ml 25 mg IM Q7D 07/14/18 History Metoprolol Tartrate [Lopressor] 50 mg PO BID 07/14/18 07/14/18 History Oxybutynin Chloride [Ditropan] 5 mg PO BID 07/14/18 07/14/18 History QUEtiapine [SEROquel] 100 mg PO HS 07/14/18 07/14/18 History Sertraline [Zoloft] 50 mg PO DAILY 07/14/18 07/14/18 History predniSONE See Taper PO DIRECTED 07/14/18 07/14/18 History prednisoLONE ACETATE [Pred Forte 1 drop BOTH EYES DAILY PRN 07/14/18 07/14/18 History 1%] Allergies Allergy/AdvReac Type Severity Reaction Status Date / Time phenobarbital Allergy rash & Verified 07/14/18 12:44 swells up Physical Exam Vitals: Vital Signs Temp Pulse Resp BP Pulse Ox 07/14/18 15:42 73 18 142/72 100 07/14/18 14:29 62 18 131/86 100 07/14/18 12:45 69 18 124/76 98 07/14/18 12:07 98 F 80 18 114/74 96 Intake and Output 07/14/18 07/14/18 07/14/18 06:59 14:59 22:59 Other: Weight 106.594 kg Obese, comfortable likely distress Head exam was generally normal. There was no scleral icterus or corneal arcus. Mucous membranes were moist. Neck was supple and without jugular venous distension, thyromegaly, or carotid bruits. Carotids were easily palpable bilaterally. There was no adenopathy. Mallampati class IV with micrognathia Lungs were clear to auscultation and percussion, and with normal diaphragmatic excursion. No wheezes or rales were noted. Cardiac exam revealed the PMI to be normally situated and sized. The rhythm was regular and no extrasystoles were noted during several minutes of auscultation. The first and second heart sounds were normal and physiologic splitting of the second heart sound was noted. There were no murmurs, rubs, clicks, or gallops. Abdominal exam revealed normal bowel sounds. The abdomen was soft, non-tender, and without masses, organomegaly, or appreciable enlargement of the abdominal aorta. Examination of the extremities revealed easily palpable radial, femoral and pedal pulses. There was no cyanosis, clubbing or edema. Examination of the skin revealed no evidence of significant rashes, suspicious appearing nevi or other concerning lesions. Neurologically awake and alert and there is no focal logical deficits Psychiatrically has history of chronic depression Results - Laboratory Findings CBC and BMP: 07/14/18 12:38 07/14/18 12:38 PT/INR, D-dimer PT 9.8 sec (9.0-12.0) 07/14/18 12:38 INR 0.9 (<1.2) 07/14/18 12:38 Abnormal lab findings: Abnormal Labs 07/14/18 07/14/18 07/14/18 12:38 12:38 12:38 RDW 16.1 H APTT 21.7 L Chloride 108 H BUN 19 H Magnesium 2.4 H - Diagnostic Findings CT scan - chest: image reviewed Assessment and Plan Plan: Assessment 1 acute pulmonary embolism involving the lingula and the left lower lobe pulmonary artery segments in addition to bilateral lower extremity DVT, popliteal. This is an unprovoked event 2 acute shortness of breath and chest pain secondary to above 3 history of aortic dissection involving the thoracic aortic arch and descending thoracic aorta, stable and less prominent compared to the previous CAT scan from 2018 4 obesity with a BMI of 36.8 5 obstructive sleep apnea CVA with an AHI of 63 maintained on CPAP pressure of 10 cm of water 6 hypertension 7 rheumatoid arthritis 8 fibromyalgia 9 hypertension 10 depression Plan I think is reasonable to start the patient IV heparin. Discussed the case with emergency additions. We'll start the patient IV heparin. We'll obtain echocardiogram. We'll also consult with our vascular surgeon regarding the safety of long-term anticoagulation with the patient has a healing aortic dissection. Control the blood pressure. Monitor hemoglobin and watch for any signs of drop in hemoglobin. Continue CPAP therapy. We'll continue to follow. The patient will be admitted to the medical surgical floor.
[2018-07-14] MEDS: SODIUM CHLORIDE 0.9% 1,000 ML IV SCH (19:11)
[2018-07-14] MEDS ORDERED: ACETAMINOPHEN TAB 500 MG TAB PO PRN (20:00)
[2018-07-14] MEDS ORDERED: prednisoLONE ACETATE 1% OPHTH DROPS 5 ML BTL BOTH EYES PRN (20:00)
[2018-07-14] MEDS ORDERED: IPRATROPIUM 0.5 MG/2.5 ML NEBU INHALATION PRN (20:00)
[2018-07-14] MEDS ORDERED: ALBUTEROL NEBULIZED 2.5 MG/3 ML INHALATION PRN (20:00)
[2018-07-14] MEDS: OXYBUTYNIN CHLORIDE 5 MG TAB PO SCH (21:53)
[2018-07-14] MEDS: GABAPENTIN 300 MG CAP PO SCH (21:54)
[2018-07-14] MEDS: METOPROLOL TARTRATE 50 MG TAB PO SCH (21:54)
[2018-07-14] MEDS: QUEtiapine 100 MG TAB PO SCH (23:29)
[2018-07-14] MEDS: SERTRALINE 50 MG TAB PO SCH (23:29)
[2018-07-14] MEDS: HYDROXYCHLOROQUINE SULFATE 200 MG TAB PO SCH (23:29)
[2018-07-15 04:33] LABS: Basophils % (A) 1 %; Eosinophils # (A) 0.2 k/uL (0-0.7); Eosinophils % (A) 3 %; HCT 39.7 % (34.0-46.0); HGB 12.5 gm/dL (11.4-16.0); Lymphocytes # (A) 2.4 k/uL (1.0-4.8); Lymphocytes % (A) 42 %; MCH 32.2 pg (25.0-35.0); MCHC 31.5 g/dL (31.0-37.0); MCV 102.2 fL (80.0-100.0); Macrocytosis Slight; Mean Platelet Volume 6.4; Monocytes # (A) 0.3 k/uL (0-1.0); Monocytes % (A) 6 %; Neutrophils # (A) 2.8 k/uL (1.3-7.7); Neutrophils % (A) 48 %; Platelet Count 182 k/uL (150-450); RBC 3.88 m/uL (3.80-5.40); RDW 15.9 % (11.5-15.5); WBC 5.8 k/uL (3.8-10.6)
[2018-07-15] MEDS: HEPARIN SOD,PORK IN 0.45% NACL 25,000 UNIT in 0.45% NACL 1 250ML.BAG IV SCH (06:06)
--- NOTE | 2018-07-15 07:55 | CONS ---
CONSULTATION Patient is a 57-year-old female who came to the emergency room with history of shortness of breath and chest discomfort and found to have a left lower lobe PE by CAT scan. Patient also had ultrasound of the leg which showed bilateral popliteal deep vein thrombosis. Patient has known history of aortic dissection and she was evaluated at [facility] who recommend no surgical intervention. MEDICAL HISTORY: History of fibromyalgia, hypertension, history of depression. PHYSICAL EXAMINATION: Patient was seen in her room. She is lying comfortably in bed. NECK: Supple. CHEST: Clear to auscultation. First and second sounds are normal. ABDOMEN: Soft, nontender. Femoral pulses are present. Popliteal is palpable. No vascular compromise noted. IMPRESSION: Bilateral popliteal deep venous thrombosis with pulmonary embolism left lower lobe. The patient is on heparin and patient will be continued and then patient go home on anticoagulation. Will follow in my office in 2 weeks. At this point, there is no role of any surgical intervention or any placement of the filter. MMODL / IJN: [id number] /
[2018-07-15] MEDS: OXYBUTYNIN CHLORIDE 5 MG TAB PO SCH ×2 (08:33→20:41)
[2018-07-15] MEDS: HYDROXYCHLOROQUINE SULFATE 200 MG TAB PO SCH ×2 (08:33→20:41)
[2018-07-15] MEDS: predniSONE 5 MG TAB PO SCH (08:33)
[2018-07-15] MEDS: METOPROLOL TARTRATE 50 MG TAB PO SCH ×2 (08:33→20:41)
[2018-07-15] MEDS: SERTRALINE 50 MG TAB PO SCH (08:34)
[2018-07-15] MEDS: FERROUS SULFATE 325 MG TAB PO SCH (08:34)
[2018-07-15] MEDS: FOLIC ACID 1 MG TAB PO SCH (08:34)
[2018-07-15 09:19] LABS: Albumin 3.4 g/dL (3.5-5.0); Carbon Dioxide 26 mmol/L (22-30); Glucose 92 mg/dL (74-99); Potassium 4.5 mmol/L (3.5-5.1); Sodium 143 mmol/L (137-145); Total Protein 6.3 g/dL (6.3-8.2)
[2018-07-15 09:35] LABS: ALT 29 U/L (9-52); AST 30 U/L (14-36); Alkaline Phosphatase 73 U/L (38-126); Anion Gap 5 mmol/L; Blood Urea Nitrogen 18 mg/dL (7-17); Calcium 9.3 mg/dL (8.4-10.2); Chloride 112 mmol/L (98-107); Total Bilirubin 0.4 mg/dL (0.2-1.3)
[2018-07-15] MEDS ORDERED: ONDANSETRON 4 MG/2 ML VIAL IVP PRN (10:46)
--- NOTE | 2018-07-15 10:55 | P.HPIM ---
History of Present Illness H&P Date: 07/15/18 This is a 57-year-old female patient of Dr. Schmidt. Patient was sent to the ER for abnormal result on CAT scan. Patient reports she's had intermittent shortness of breath for the past 2 weeks and patient was ordered in outpatient computed tomography scan. Patient does have a known past medical history of dissection mid to distal abdominal aorta in which patient was sent to [facility] one year ago and at that time patient is recommended for monitoring and no surgical intervention. CT of chest that was completed yesterday showed redemonstration of dissection mid to distal abdominal aorta is stable and less prominent in size from the most recent CT. There is increasing mural thrombus in the false lumen noted. Note is made of new lobar pulmonary embolism in the bilateral and left lower lobe with subsegmental extension. Additional medical history includes asthma, hypertension, rheumatoid arthritis. Dr. Carrizales per pulmonary notified of findings. Case was discussed with cardiothoracic surgery. It was decided to place patient on heparin drip. Dr. Vázquez for vascular surgery also consulted due to patient's history of dissecting thoracic aortic aneurysm. Venous Doppler also completed showing positive for bilateral DVTs. At this time patient is resting comfortably in bed. Patient appears in no distress. Patient denies chest pain or shortness of breath. Patient denies nausea vomiting or diarrhea. Patient denies any urinary burning or frequency. Hemoglobin remained stable at 12.5. Did discuss case with Dr. Carrizales in per critical care recommends keeping patient on heparin drip and monitoring for 1-2 days before switching over to oral anticoagulation. 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 diagnosed back in October 2017 and has been stable since, rheumatoid arthritis, fibromyalgia, osteoarthritis, severe obstructive sleep apnea with an AHI of 63 maintained on CPAP pressure of 10 cm of water, hypertension, peripheral vascular disease, chronic anemia, history of left breast cysts, history of depression, chronic back pain, hypertension History of Any Multi-Drug Resistant Organisms: None Reported Past Surgical History: Section, Cholecystectomy, Tubal Ligation Additional Past Surgical History / Comment(s): Colonoscopy Past Anesthesia/Blood Transfusion Reactions: No Reported Reaction Smoking Status: Never smoker - Past Family History Father Family Medical History: Myocardial Infarction (PR) Additional Family Medical History / Comment(s): Father of a PR at the age of 36 yrs. Mother Family Medical History: No Reported History Additional Family Medical History / Comment(s): Mother is healthy and 75 yrs old. Medications and Allergies Home Medications Medication Instructions Recorded Confirmed Type Ferrous Sulfate [Feosol] 325 mg PO DAILY 07/20/15 07/14/18 History Folic Acid 1 mg PO DAILY 07/20/15 07/14/18 History Hydroxychloroquine Sulfate 200 mg PO BID 07/20/15 07/14/18 History [Plaquenil] Adalimumab [Humira Pen] 40 mg SQ [id number] 11/12/17 07/14/18 History Albuterol Inhaler [Ventolin Hfa 2 puff INHALATION RT-Q6H PRN 11/12/17 07/14/18 History Inhaler] Ipratropium [place] [Atrovent Hfa] 2 puff INHALATION RT-QID PRN 11/12/17 07/14/18 History Ranitidine HCl [Zantac] 150 mg PO BID 11/12/17 07/14/18 History Cephalexin [Keflex] 500 mg PO Q6HR #40 cap 06/30/18 07/14/18 Rx Acetaminophen Tab [Tylenol] 1,000 mg PO Q8H 07/14/18 07/14/18 History Albuterol Inhaler [Ventolin Hfa 2 puff INHALATION RT-Q12H PRN 07/14/18 07/14/18 History Inhaler] Gabapentin [Neurontin] 300 mg PO HS 07/14/18 07/14/18 History Lidocaine HCl [Aspercreme] 1 applic TOPICAL DAILY PRN 07/14/18 07/14/18 History Methotrexate 50mg/2ml 25 mg IM Q7D 07/14/18 History Metoprolol Tartrate [Lopressor] 50 mg PO BID 07/14/18 07/14/18 History Oxybutynin Chloride [Ditropan] 5 mg PO BID 07/14/18 07/14/18 History QUEtiapine [SEROquel] 100 mg PO HS 07/14/18 07/14/18 History Sertraline [Zoloft] 50 mg PO DAILY 07/14/18 07/14/18 History predniSONE See Taper PO DIRECTED 07/14/18 07/14/18 History prednisoLONE ACETATE [Pred Forte 1 drop BOTH EYES DAILY PRN 07/14/18 07/14/18 History 1%] Allergies Allergy/AdvReac Type Severity Reaction Status Date / Time phenobarbital Allergy rash & Verified 07/14/18 12:44 swells up Physical Exam Vitals: Vital Signs Temp Pulse Pulse Resp BP BP Pulse Ox 07/15/18 08:42 96 07/15/18 08:00 98.2 F 71 18 113/62 97 07/15/18 04:00 97.9 F 60 19 102/55 95 07/15/18 00:00 97.7 F 75 18 131/65 98 07/14/18 20:00 98.4 F 70 19 126/82 100 07/14/18 18:00 76 18 07/14/18 17:42 70 18 124/62 100 07/14/18 16:00 97.4 F L 76 18 167/79 99 07/14/18 15:42 73 18 142/72 100 07/14/18 14:29 62 18 131/86 100 07/14/18 12:45 69 18 124/76 98 07/14/18 12:07 98 F 80 18 114/74 96 Intake and Output 07/14/18 07/15/18 07/15/18 22:59 06:59 14:59 Intake Total 592.217 97.783 Balance 592.217 97.783 Intake: IV 240 Sodium Chloride 0.9% 1, 240 000 ml @ 20 mls/hr IV . Q24H [facility] Rx#:[id number] Amount of Fluid Infused ( 200 ml) Intake, IV Titration 152.217 97.783 Amount Heparin Sod,Pork in 0.45% 152.217 97.783 NaCl 25,000 unit In 0.45 % NaCl 1 250ml.bag @ 18 UNITS/KG/HR 19.187 mls/hr IV .Q13H2M [facility] Rx#: [id number] Other: Voiding Method Toilet # Voids 0 1 Weight 107.4 kg 107.1 kg Head normocephalic Neck supple Lungs clear to auscultation bilaterally no wheezing or crackles Heart regular rate and rhythm S1-S2, no rub or gallop Abdomen is soft nontender nondistended positive bowel sounds no hepatosplenomegaly Extremities no edema Neuro alert and orientated to 3 Results CBC & Chem 7: 07/15/18 04:13 07/15/18 04:13 Labs: Abnormal Lab Results - Last 24 Hours (Table) 07/14/18 07/14/18 07/14/18 Range/Units 12:38 12:38 12:38 MCV (80.0-100.0) fL RDW 16.1 H (11.5-15.5) % APTT 21.7 L (22.0-30.0) sec Chloride 108 H (98-107) mmol/L BUN 19 H (7-17) mg/dL Magnesium 2.4 H (1.6-2.3) mg/dL Albumin (3.5-5.0) g/dL 07/14/18 07/15/18 07/15/18 Range/Units 21:30 04:13 04:13 MCV 102.2 H (80.0-100.0) fL RDW 15.9 H (11.5-15.5) % APTT 178.7 H* 103.2 H* (22.0-30.0) sec Chloride (98-107) mmol/L BUN (7-17) mg/dL Magnesium (1.6-2.3) mg/dL Albumin (3.5-5.0) g/dL 07/15/18 Range/Units 04:13 MCV (80.0-100.0) fL RDW (11.5-15.5) % APTT (22.0-30.0) sec Chloride 112 H (98-107) mmol/L BUN 18 H (7-17) mg/dL Magnesium (1.6-2.3) mg/dL Albumin 3.4 L (3.5-5.0) g/dL Thrombosis Risk Factor Assmnt - Choose All That Apply Any of the Below Risk Factors Present?: Yes Each Factor Represents 1 point: Age 41-60 years, Obesity (BMI >25) Other Risk Factors: Yes Each Risk Factor Represents 3 Points: History of DVT/PE Other congenital or acquired thrombophilia - If yes, enter type in comment: No Thrombosis Risk Factor Assessment Total Risk Factor Score: 5 Thrombosis Risk Factor Assessment Level: High Risk Assessment and Plan Assessment: 1. Acute shortness of breath related to Acute pulmonary embolism involving pelvic well up in the left lower lobe pulmonary artery segments in addition to bilateral lower DVTs popliteal. Patient has been started on heparin drip. Dr. Vázquez for vascular surgery following. Due to patient's history of aortic dissection recommend patient stay on heparin drip for an additional 1-2 days for close monitoring before switching over to oral anticoagulation. Discussed case with critical care team. Per vascular surgery patient will stay on heparin drip and will be DC'd home on anticoagulation and will follow-up in office in 2 weeks 2. 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 At that time patient was transferred to [facility] and no surgical intervention was recommended. 3. Obstructive sleep apnea. Patient follows with sleep center. Patient maintained on CPAP. Pulmonary services are following 4. History of essential hypertension 5. History of rheumatoid arthritis 6. History of fibromyalgia 7. History of essential hypertension 8. History of depression Patient currently on heparin drip. GI prophylaxis Protonix Critical care and vascular surgeon currently following. Time with Patient: Greater than 30 (Greater than 60% of the total time spent in counseling and coordination of care. I performed an examination of the patient and discussed their management with the Nurse Practitioner. I have reviewed the Nurse Practitioner's notes and agree with the documented findings and plan of care)
--- NOTE | 2018-07-15 15:20 | P.CONS ---
History of Present Illness - Reason for Consult Consult date: 07/15/18 New Bilateral DVTs and PE Requesting physician: Elsa Robert - Chief Complaint Shortness of breath and New PE/DVTs - History of Present Illness Ms. Salamanca is a 57 year old female patient who was advised for further evaluation in emergency for abnormal findings on CT scan. She has apparently been complaining of increased shortness of breath that has not improved over the past few weeks, therefore at the request of her PCP a CT was ordered. This revealed new findings of lobar pulmonary embolism in lingula and new left lobe with segmental extension. She has known dissection of abdominal aorta in which close monitoring was recommended no surgical intervention at that time, which was a year ago approximately. She was seen at [facility] for this as well. On admission Bilateral Lower extremity dopplers also reveal bilateral popliteal DVTs. She has now been admitted and a heparin drip has been initiated. Because of the new findings of DVTs and PEs, hematology has been consulted. Review of Systems A 14 point review of system assessed and completed and all negative except HPI Past Medical History Past Medical History: Asthma, Hypertension, Rheumatoid Arthritis (RA), Vascular Disorder Additional Past Medical History / Comment(s): Obesity, aortic dissection involvi ng the thoracic arch and descending aorta diagnosed back in October 2017 and has been stable since, rheumatoid arthritis, fibromyalgia, osteoarthritis, severe obstructive sleep apnea with an AHI of 63 maintained on CPAP pressure of 10 cm of water, hypertension, peripheral vascular disease, chronic anemia, history of left breast cysts, history of depression, chronic back pain, hypertension History of Any Multi-Drug Resistant Organisms: None Reported Past Surgical History: Section, Cholecystectomy, Tubal Ligation Additional Past Surgical History / Comment(s): Colonoscopy Past Anesthesia/Blood Transfusion Reactions: No Reported Reaction Smoking Status: Never smoker - Past Family History Father Family Medical History: Myocardial Infarction (RI) Additional Family Medical History / Comment(s): Father of a RI at the age of 36 yrs. Mother Family Medical History: No Reported History Additional Family Medical History / Comment(s): Mother is healthy and 75 yrs old. Medications and Allergies Home Medications Medication Instructions Recorded Confirmed Type Ferrous Sulfate [Feosol] 325 mg PO DAILY 07/20/15 07/14/18 History Folic Acid 1 mg PO DAILY 07/20/15 07/14/18 History Hydroxychloroquine Sulfate 200 mg PO BID 07/20/15 07/14/18 History [Plaquenil] Adalimumab [Humira Pen] 40 mg SQ Q18ALLO 11/12/17 07/14/18 History Albuterol Inhaler [Ventolin Hfa 2 puff INHALATION RT-Q6H PRN 11/12/17 07/14/18 History Inhaler] Ipratropium [place] [Atrovent Hfa] 2 puff INHALATION RT-QID PRN 11/12/17 07/14/18 History Ranitidine HCl [Zantac] 150 mg PO BID 11/12/17 07/14/18 History Cephalexin [Keflex] 500 mg PO Q6HR #40 cap 06/30/18 07/14/18 Rx Acetaminophen Tab [Tylenol] 1,000 mg PO Q8H 07/14/18 07/14/18 History Albuterol Inhaler [Ventolin Hfa 2 puff INHALATION RT-Q12H PRN 07/14/18 07/14/18 History Inhaler] Gabapentin [Neurontin] 300 mg PO HS 07/14/18 07/14/18 History Lidocaine HCl [Aspercreme] 1 applic TOPICAL DAILY PRN 07/14/18 07/14/18 History Methotrexate 50mg/2ml 25 mg IM Q7D 07/14/18 History Metoprolol Tartrate [Lopressor] 50 mg PO BID 07/14/18 07/14/18 History Oxybutynin Chloride [Ditropan] 5 mg PO BID 07/14/18 07/14/18 History QUEtiapine [SEROquel] 100 mg PO HS 07/14/18 07/14/18 History Sertraline [Zoloft] 50 mg PO DAILY 07/14/18 07/14/18 History predniSONE See Taper PO DIRECTED 07/14/18 07/14/18 History prednisoLONE ACETATE [Pred Forte 1 drop BOTH EYES DAILY PRN 07/14/18 07/14/18 History 1%] Allergies Allergy/AdvReac Type Severity Reaction Status Date / Time phenobarbital Allergy rash & Verified 07/14/18 12:44 swells up Physical Exam Vitals: Vital Signs Temp Pulse Pulse Resp BP BP Pulse Ox 07/15/18 11:01 63 18 07/15/18 10:58 97.9 F 63 18 116/62 98 07/15/18 08:42 96 07/15/18 08:00 98.2 F 71 18 113/62 97 07/15/18 04:00 97.9 F 60 19 102/55 95 07/15/18 00:00 97.7 F 75 18 131/65 98 07/14/18 20:00 98.4 F 70 19 126/82 100 07/14/18 18:00 76 18 07/14/18 17:42 70 18 124/62 100 07/14/18 16:00 97.4 F L 76 18 167/79 99 07/14/18 15:42 73 18 142/72 100 Intake and Output 07/15/18 07/15/18 07/15/18 06:59 14:59 22:59 Intake Total 97.783 548.045 Balance 97.783 548.045 Intake: Intake, IV Titration 97.783 88.045 Amount Heparin Sod,Pork in 0.45% 97.783 88.045 NaCl 25,000 unit In 0.45 % NaCl 1 250ml.bag @ 18 UNITS/KG/HR 19.187 mls/hr IV .Q13H2M [facility] Rx#: [id number] Oral 460 Other: Voiding Method Toilet Toilet # Voids 1 1 Weight 107.1 kg Gen: Alert and oriented, No acute distress Head: NCNT Neck: Supple, Trachea midline No palpable adenopathy supraclavicular, cervical or axillary Lungs: Diminished bilateral bases, no increased effort on exam Heart Reg, Ireg Abdomen: Soft, ND, NT Ext: Mild Bilat Edema, some evid peripheral stasis Neuro: No sensory or motor deficits. Results CBC & Chem 7: 07/16/18 05:48 07/16/18 05:48 Labs: Abnormal Lab Results - Last 24 Hours (Table) 07/14/18 07/15/18 07/15/18 Range/Units 21:30 04:13 04:13 MCV 102.2 H (80.0-100.0) fL RDW 15.9 H (11.5-15.5) % APTT 178.7 H* 103.2 H* (22.0-30.0) sec Chloride (98-107) mmol/L BUN (7-17) mg/dL Albumin (3.5-5.0) g/dL 07/15/18 07/15/18 Range/Units 04:13 12:12 MCV (80.0-100.0) fL RDW (11.5-15.5) % APTT 76.2 H (22.0-30.0) sec Chloride 112 H (98-107) mmol/L BUN 18 H (7-17) mg/dL Albumin 3.4 L (3.5-5.0) g/dL CT scan - chest: report reviewed Venous US: report reviewed Assessment and Plan Plan: Assessment and recommendations: 1. New DVTs: Bilateral Popliteal veins 2. New Pulmonary Embolism: Lobar Pulm Em in lingula and PE left lobe with segmental extension 3. Rheumatoid Arthritis on humira Agree with Heparin drip 24-48 hours prior to converting to PO anticoagulation Physician Attestation: I have completed the full history and physical and agree with above dictation by Aysha Zambrano, Dictated as a scribe
--- NOTE | 2018-07-15 16:35 | P.PN ---
Subjective Progress Note Date: 07/15/18 Principal diagnosis: Acute pulmonary embolism involving the lingula on the left lower lobe pulmonary artery segments in addition to bilateral lower extremity DVT, popliteal. Unpro voked event. This is a 57-year-old patient was sent to the emergency department because of the normal CAT scan of the chest. The patient had a cardiac evaluation today and during her evaluation the patient was complaining of increased shortness of breath and pain that was somewhat pleuritic along the left side of the chest that is going on for the past 2 weeks. For that reason the patient had a CT angiogram that showed a old dissection in the mid and the distal abdominal aorta that has been stable and less prominent compared to the previous CAT scan from 2018. There was also an increasing neurothrombus and the false lumen and this was noted. At the same time, it was noted that the patient has new lobar pulmonary embolism in the lingula in the left lower lobe with segmental extension. For that reason, the patient was sent to the emergency department. I reviewed the records. I saw the patient was in the hospital back in October 2007 and at that time she was diagnosed having a aortic arch and abdominal aortic dissection. The patient was transferred to [facility] she was diagnosed having a stable dissection and no further surgical intervention was warranted and the patient was placed on beta blockers and the patient was discharged home. The patient states that she has been quite active. No sedentary lifestyle. No recent surgeries. No previous history of DVT or pulmonary embolism. No 70 bleeding complications. She is known to have rheumatoid arthritis, fibromyalgia, hypertension and depression and chronic back pain. Furthermore, the patient underwent a recent sleep evaluation sleep center and the patient was found to have severe CONSTANCE with an AHI of 63.2 and the patient was titrated to a CPAP pressure of 10 cm of water. Doppler of the lower extremity was positive for DVT in the right popliteal and left popliteal veins and the patient was diagnosed having bilateral lower extremity DVT. No trauma to the legs. No calf pain or tenderness no swelling in lower extremities bilaterally. She has chronic varicose veins. No hemoptysis. Hemodynamically stable at this point in time. Pulse oxing approximately a 9% on 2 L of oxygen by nasal cannula. The patient is seen today in follow-up on the selective care unit. She is awake alert no acute distress. Currently sitting up the bedside having lunch. She denies any worsening shortness of breath, cough or congestion. No chills or night sweats. Maintaining good O2 saturations in the mid to upper 90s on room air. She's been afebrile. Hemodynamically stable. White count 5.8. Hemoglobin 12.5. Creatinine 0.80. She remains on heparin drip. Objective - Vital Signs Vital signs: Vital Signs Temp 97.6 F 07/15/18 16:00 Pulse 63 07/15/18 16:00 Resp 16 07/15/18 16:00 BP 109/59 07/15/18 16:00 Pulse Ox 96 07/15/18 16:00 Intake & Output 07/14/18 07/15/18 07/15/18 18:59 06:59 18:59 Intake Total 440 250.000 548.045 Balance 440 250.000 548.045 Weight 107.4 kg 107.1 kg Intake: IV 240 Sodium Chloride 0.9% 1, 240 000 ml @ 20 mls/hr IV . Q24H [facility] Rx#:[id number] Amount of Fluid Infused ( 200 ml) Intake, IV Titration 250.000 88.045 Amount Heparin Sod,Pork in 0.45% 250.000 88.045 NaCl 25,000 unit In 0.45 % NaCl 1 250ml.bag @ 18 UNITS/KG/HR 19.187 mls/hr IV .Q13H2M [facility] Rx#: [id number] Oral 460 Other: Voiding Method Toilet Toilet # Voids 0 1 1 - Exam GENERAL EXAM: Alert, active, comfortable in no apparent distress. On room air. HEAD: Normocephalic. EYES: Normal reaction of pupils, equal size. NOSE: Clear with pink turbinates. THROAT: No erythema or exudates. NECK: No masses, no JVD. CHEST: No chest wall deformity. LUNGS: Equal air entry with no crackles, wheeze, rhonchi or dullness. CVS: S1 and S2 normal with no audible murmur, regular rhythm. ABDOMEN: No hepatosplenomegaly, normal bowel sounds, no guarding or rigidity. SPINE: No scoliosis or deformity SKIN: No rashes CENTRAL NERVOUS SYSTEM: No focal deficits, tone is normal in all 4 extremities. EXTREMITIES: There is no peripheral edema. No clubbing, no cyanosis. Jessica pheral pulses are intact. - Labs CBC & Chem 7: 07/15/18 04:13 07/15/18 04:13 Labs: Abnormal Lab Results - Last 24 Hours (Table) 07/14/18 07/15/18 07/15/18 Range/Units 21:30 04:13 04:13 MCV 102.2 H (80.0-100.0) fL RDW 15.9 H (11.5-15.5) % APTT 178.7 H* 103.2 H* (22.0-30.0) sec Chloride (98-107) mmol/L BUN (7-17) mg/dL Albumin (3.5-5.0) g/dL 07/15/18 07/15/18 Range/Units 04:13 12:12 MCV (80.0-100.0) fL RDW (11.5-15.5) % APTT 76.2 H (22.0-30.0) sec Chloride 112 H (98-107) mmol/L BUN 18 H (7-17) mg/dL Albumin 3.4 L (3.5-5.0) g/dL Assessment and Plan Assessment: Assessment 1 acute pulmonary embolism involving the lingula and the left lower lobe pulmonary artery segments in addition to bilateral lower extremity DVT, popliteal. 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 Akers. She is currently stable from the pulmonary standpoint. Maintaining good O2 saturations in the 90s on room air. No chest pain. She remains on a heparin drip. We will initiate warfarin as her insurance does not cover the factor Xa inhibitors. We will increase her activity as tolerated. We will continue to follow make further recommendations based on her clinical status. I, the cosigning physician, performed a history & physical examination of the patient. Lungs sounds are clear. Maintaining good O2 saturations in the 90s on room air. I discussed the assessment and plan of care with my nurse Fernanda putnam. I attest to the above note as dictated by her.
[2018-07-15] MEDS: SODIUM CHLORIDE 0.9% 1,000 ML IV SCH (17:41)
[2018-07-15] MEDS ORDERED: WARFARIN 7.5 MG TAB PO ONE (18:00)
[2018-07-15] MEDS ORDERED: WARFARIN 5 MG TAB PO ONE (18:00)
[2018-07-15] MEDS: GABAPENTIN 300 MG CAP PO SCH (20:41)
[2018-07-15] MEDS: QUEtiapine 100 MG TAB PO SCH (20:41)
[2018-07-16] MEDS: HEPARIN SOD,PORK IN 0.45% NACL 25,000 UNIT in 0.45% NACL 1 250ML.BAG IV SCH ×4 (03:25→23:42)
[2018-07-16 06:18] LABS: Basophils % (A) 0 %; Eosinophils # (A) 0.1 k/uL (0-0.7); Eosinophils % (A) 2 %; HGB 12.1 gm/dL (11.4-16.0); Lymphocytes # (A) 2.2 k/uL (1.0-4.8); Lymphocytes % (A) 36 %; MCH 31.3 pg (25.0-35.0); MCHC 31.1 g/dL (31.0-37.0); MCV 100.6 fL (80.0-100.0); Macrocytosis Slight; Mean Platelet Volume 6.8; Monocytes # (A) 0.3 k/uL (0-1.0); Monocytes % (A) 5 %; Neutrophils # (A) 3.3 k/uL (1.3-7.7); Neutrophils % (A) 54 %; Platelet Count 187 k/uL (150-450); RBC 3.87 m/uL (3.80-5.40); RDW 15.5 % (11.5-15.5); WBC 6.2 k/uL (3.8-10.6)
[2018-07-16 06:25] LABS: Partial Thromboplastin Time 56.5 sec (22.0-30.0); Prothrombin Time 10.6 sec (9.0-12.0)
[2018-07-16 06:59] LABS: Albumin 3.3 g/dL (3.5-5.0); Calcium 9.3 mg/dL (8.4-10.2); Potassium 4.4 mmol/L (3.5-5.1); Total Bilirubin 0.5 mg/dL (0.2-1.3); Total Protein 6.1 g/dL (6.3-8.2)
[2018-07-16] MEDS: FERROUS SULFATE 325 MG TAB PO SCH (08:05)
[2018-07-16] MEDS: OXYBUTYNIN CHLORIDE 5 MG TAB PO SCH ×2 (08:05→19:46)
[2018-07-16] MEDS: SERTRALINE 50 MG TAB PO SCH (08:05)
[2018-07-16] MEDS: HYDROXYCHLOROQUINE SULFATE 200 MG TAB PO SCH ×2 (08:06→19:46)
[2018-07-16] MEDS: METOPROLOL TARTRATE 50 MG TAB PO SCH ×2 (08:06→19:46)
[2018-07-16] MEDS: PANTOPRAZOLE 40 MG TABLET PO SCH (08:06)
[2018-07-16] MEDS: predniSONE 5 MG TAB PO SCH (08:06)
[2018-07-16] MEDS: FOLIC ACID 1 MG TAB PO SCH (08:06)
--- NOTE | 2018-07-16 10:54 | P.PN ---
Subjective Progress Note Date: 07/16/18 This is a 57-year-old female patient of Dr. Schmidt. Patient was sent to the ER for abnormal result on CAT scan. Patient reports she's had intermittent shortness of breath for the past 2 weeks and patient was ordered in outpatient computed tomography scan. 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 one year ago and at that time patient is recommended for monitoring and no surgical intervention. CT of chest that was completed yesterday showed redemonstration of dissection mid to distal abdominal aorta is stable and less prominent in size from the most recent CT. There is increasing mural thrombus i n the false lumen noted. Note is made of new lobar pulmonary embolism in the bilateral and left lower lobe with subsegmental extension. Additional medical history includes asthma, hypertension, rheumatoid arthritis. Dr. Carrizales per pulmonary notified of findings. Case was discussed with cardiothoracic surgery. It was decided to place patient on heparin drip. Dr. Vázquez for vascular surgery also consulted due to patient's history of dissecting thoracic aortic aneurysm. Venous Doppler also completed showing positive for bilateral DVTs. At this time patient is resting comfortably in bed. Patient appears in no distress. Patient denies chest pain or shortness of breath. Patient denies nausea vomiting or diarrhea. Patient denies any urinary burning or frequency. Hemoglobin remained stable at 12.5. Did discuss case with Dr. Carrizales in per critical care recommends keeping patient on heparin drip and monitoring for 1-2 days before switching over to oral anticoagulation. On 07/16/2018 patient is alert and oriented 3 resting comfortably in bed. Discussed case with case management. Patient currently not covered with as well for slava Junior patient will be transitioned to Coumadin. Patient did receive 7.5 mg Coumadin yesterday per pulmonary. INR 1.0 at this time patient denies chest pain or shortness of breath. Patient denies nausea vomiting or diarrhea. Patient denies any urinary burning or frequency Objective - Vital Signs Vital signs: Vital Signs Temp 97.5 F L 07/16/18 08:00 Pulse 62 07/16/18 08:00 Resp 18 07/16/18 08:00 BP 105/58 07/16/18 08:00 Pulse Ox 97 07/16/18 08:44 Intake & Output 07/15/18 07/16/18 07/16/18 18:59 06:59 18:59 Intake Total 808.045 230 Balance 808.045 230 Weight 106.6 kg Intake: Intake, IV Titration 88.045 Amount Heparin Sod,Pork in 0.45% 88.045 NaCl 25,000 unit In 0.45 % NaCl 1 250ml.bag @ 18 UNITS/KG/HR 19.187 mls/hr IV .Q13H2M SARAH Rx#: [id number] Oral 720 230 Other: Voiding Method Toilet Toilet # Voids 1 1 - Exam Head normocephalic Neck supple Lungs clear to auscultation bilaterally no wheezing or crackles Heart regular rate and rhythm S1-S2, no rub or gallop Abdomen is soft nontender nondistended positive bowel sounds no hepatosplenomegaly Extremities no edema Neuro alert and orientated to 3 - Labs CBC & Chem 7: 07/16/18 05:48 07/16/18 05:48 Labs: Abnormal Lab Results - Last 24 Hours (Table) 07/15/18 07/15/18 07/16/18 Range/Units 12:12 19:05 05:48 MCV 100.6 H (80.0-100.0) fL APTT 76.2 H 58.6 H (22.0-30.0) sec Chloride (98-107) mmol/L BUN (7-17) mg/dL Total Protein (6.3-8.2) g/dL Albumin (3.5-5.0) g/dL 07/16/18 07/16/18 Range/Units 05:48 05:48 MCV (80.0-100.0) fL APTT 56.5 H (22.0-30.0) sec Chloride 109 H (98-107) mmol/L BUN 21 H (7-17) mg/dL Total Protein 6.1 L (6.3-8.2) g/dL Albumin 3.3 L (3.5-5.0) g/dL Assessment and Plan Assessment: 1. Acute shortness of breath related to Acute pulmonary embolism involving pelvic well up in the left lower lobe pulmonary artery segments in addition to bilateral lower DVTs popliteal. Patient has been started on heparin drip. Dr. Vázquez for vascular surgery following. Due to patient's history of aortic dissection recommend patient stay on heparin drip for an additional 1-2 days for close monitoring before switching over to oral anticoagulation. Discussed case with critical care team. Per vascular surgery patient will stay on heparin drip and will be DC'd home on anticoagulation and will follow-up in office in 2 weeks . Patient has been started on Coumadin. Continue to monitor daily 2. 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 At that mariann e patient was transferred to [facility] and no surgical intervention was recommended. 3. Obstructive sleep apnea. Patient follows with sleep center. Patient maintained on CPAP. Pulmonary services are following 4. History of essential hypertension 5. History of rheumatoid arthritis 6. History of fibromyalgia 7. History of essential hypertension 8. History of depression Patient currently on heparin drip. GI prophylaxis Protonix Critical care and vascular surgeon currently following. I performed an examination of the patient and discussed their management with the Nurse Practitioner. I have reviewed the Nurse Practitioner's notes and agree with the documented findings and plan of care
--- NOTE | 2018-07-16 16:35 | P.PN ---
Subjective Progress Note Date: 07/16/18 Principal diagnosis: Acute pulmonary embolism involving the lingula on the left lower lobe pulmonary artery segments in addition to bilateral lower extremity DVT, popliteal. Unpro voked event. This is a 57-year-old patient was sent to the emergency department because of the normal CAT scan of the chest. The patient had a cardiac evaluation today and during her evaluation the patient was complaining of increased shortness of breath and pain that was somewhat pleuritic along the left side of the chest that is going on for the past 2 weeks. For that reason the patient had a CT angiogram that showed a old dissection in the mid and the distal abdominal aorta that has been stable and less prominent compared to the previous CAT scan from 2018. There was also an increasing neurothrombus and the false lumen and this was noted. At the same time, it was noted that the patient has new lobar pulmonary embolism in the lingula in the left lower lobe with segmental extension. For that reason, the patient was sent to the emergency department. I reviewed the records. I saw the patient was in the hospital back in October 2007 and at that time she was diagnosed having a aortic arch and abdominal aortic dissection. The patient was transferred to [facility] she was diagnosed having a stable dissection and no further surgical intervention was warranted and the patient was placed on beta blockers and the patient was discharged home. The patient states that she has been quite active. No sedentary lifestyle. No recent surgeries. No previous history of DVT or pulmonary embolism. No 70 bleeding complications. She is known to have rheumatoid arthritis, fibromyalgia, hypertension and depression and chronic back pain. Furthermore, the patient underwent a recent sleep evaluation sleep center and the patient was found to have severe CONSTANCE with an AHI of 63.2 and the patient was titrated to a CPAP pressure of 10 cm of water. Doppler of the lower extremity was positive for DVT in the right popliteal and left popliteal veins and the patient was diagnosed having bilateral lower extremity DVT. No trauma to the legs. No calf pain or tenderness no swelling in lower extremities bilaterally. She has chronic varicose veins. No hemoptysis. Hemodynamically stable at this point in time. Pulse oxing approximately a 9% on 2 L of oxygen by nasal cannula. The patient is seen today in follow-up on the selective care unit. She is awake alert no acute distress. Currently sitting up the bedside having lunch. She denies any worsening shortness of breath, cough or congestion. No chills or night sweats. Maintaining good O2 saturations in the mid to upper 90s on room air. She's been afebrile. Hemodynamically stable. White count 5.8. Hemoglobin 12.5. Creatinine 0.80. She remains on heparin drip. The patient is seen today in 07/16/2018 in follow-up on the selective care unit. She is currently resting quite comfortably in bed. Awake and alert in no acute distress. No shortness of breath, off or congestion. No hemoptysis. No chest pain. Maintaining good O2 saturations up to 100% on room air. She's afebrile. Hemodynamically stable. White count 6.2. Hemoglobin 12.1. INR 1.0. Creatinine 0.88. She'll receive another 7.5 mg of warfarin today. Heparin drip until therapeutic. Objective - Vital Signs Vital signs: Vital Signs Temp 97.5 F L 07/16/18 08:00 Pulse 63 07/16/18 15:31 Resp 18 07/16/18 15:31 BP 107/58 07/16/18 15:31 Pulse Ox 97 07/16/18 15:31 Intake & Output 07/15/18 07/16/18 07/16/18 18:59 06:59 18:59 Intake Total 808.045 630 Balance 808.045 630 Weight 106.6 kg Intake: Intake, IV Titration 88.045 160 Amount Heparin Sod,Pork in 0.45% 88.045 NaCl 25,000 unit In 0.45 % NaCl 1 250ml.bag @ 18 UNITS/KG/HR 19.187 mls/hr IV .Q13H2M SARAH Rx#: [id number] Sodium Chloride 0.9% 1, 160 000 ml @ 20 mls/hr IV . Q24H SARAH Rx#:[id number] Oral 720 470 Other: Voiding Method Toilet Toilet # Voids 1 1 1 - Exam GENERAL EXAM: Alert, pleasant 57-year-old female comfortable in no apparent d istress. On room air. HEAD: Normocephalic. EYES: Normal reaction of pupils, equal size. NOSE: Clear with pink turbinates. THROAT: No erythema or exudates. NECK: No masses, no JVD. CHEST: No chest wall deformity. LUNGS: Equal air entry with no crackles, wheeze, rhonchi or dullness. CVS: S1 and S2 normal with no audible murmur, regular rhythm. ABDOMEN: No hepatosplenomegaly, normal bowel sounds, no guarding or rigidity. SPINE: No scoliosis or deformity SKIN: No rashes CENTRAL NERVOUS SYSTEM: No focal deficits, tone is normal in all 4 extremities. EXTREMITIES: There is no peripheral edema. No clubbing, no cyanosis. Peripheral pulses are intact. - Labs CBC & Chem 7: 07/16/18 05:48 07/16/18 05:48 Labs: Abnormal Lab Results - Last 24 Hours (Table) 07/15/18 07/16/18 07/16/18 Range/Units 19:05 05:48 05:48 MCV 100.6 H (80.0-100.0) fL APTT 58.6 H (22.0-30.0) sec Chloride 109 H (98-107) mmol/L BUN 21 H (7-17) mg/dL Total Protein 6.1 L (6.3-8.2) g/dL Albumin 3.3 L (3.5-5.0) g/dL 07/16/18 Range/Units 05:48 MCV (80.0-100.0) fL APTT 56.5 H (22.0-30.0) sec Chloride (98-107) mmol/L BUN (7-17) mg/dL Total Protein (6.3-8.2) g/dL Albumin (3.5-5.0) g/dL Assessment and Plan Assessment: Assessment 1 acute pulmonary embolism involving the lingula and the left lower lobe pulmonary artery segments in addition to bilateral lower extremity DVT, popliteal. 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 Akers. INR 1.0. She remains on a heparin drip. We will continue warfarin as her insurance does not cover the factor Xa inhibitors. We will increase her activity as tolerated. We will continue to follow make further recommendations based on her clinical status. I, the cosigning physician, performed a history & physical examination of the patient. Lungs sounds are clear. Maintaining good O2 saturations in the 90s on room air. I discussed the assessment and plan of care with my nurse prac titioner, Fernanda Boogie. I attest to the above note as dictated by her.
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
[2018-07-16] MEDS: SODIUM CHLORIDE 0.9% 1,000 ML IV SCH (17:11)
[2018-07-16] MEDS ORDERED: WARFARIN 7.5 MG TAB PO ONE (18:00)
[2018-07-16] MEDS: GABAPENTIN 300 MG CAP PO SCH (19:46)
[2018-07-16] MEDS: QUEtiapine 100 MG TAB PO SCH (19:46)
[2018-07-17] MEDS: PANTOPRAZOLE 40 MG TABLET PO SCH (06:33)
[2018-07-17 06:53] LABS: Basophils % (A) 1 %; Eosinophils # (A) 0.2 k/uL (0-0.7); Eosinophils % (A) 3 %; HCT 39.7 % (34.0-46.0); HGB 12.4 gm/dL (11.4-16.0); Lymphocytes # (A) 2.1 k/uL (1.0-4.8); Lymphocytes % (A) 35 %; MCH 31.6 pg (25.0-35.0); MCHC 31.3 g/dL (31.0-37.0); MCV 101.1 fL (80.0-100.0); Macrocytosis Slight; Mean Platelet Volume 6.8; Monocytes # (A) 0.3 k/uL (0-1.0); Monocytes % (A) 5 %; Neutrophils # (A) 3.3 k/uL (1.3-7.7); Neutrophils % (A) 55 %; Platelet Count 168 k/uL (150-450); RBC 3.92 m/uL (3.80-5.40); RDW 15.5 % (11.5-15.5); WBC 6.1 k/uL (3.8-10.6)
[2018-07-17 07:06] LABS: Albumin 3.7 g/dL (3.5-5.0); Calcium 9.5 mg/dL (8.4-10.2); Potassium 4.2 mmol/L (3.5-5.1); Total Bilirubin 0.3 mg/dL (0.2-1.3); Total Protein 6.7 g/dL (6.3-8.2)
[2018-07-17 07:21] LABS: INR 1.7 (<1.2); Prothrombin Time 17.2 sec (9.0-12.0)
[2018-07-17 07:40] LABS: Partial Thromboplastin Time >200.0 sec (22.0-30.0)
[2018-07-17] MEDS: SODIUM CHLORIDE 0.9% 1,000 ML IV SCH (09:11)
[2018-07-17] MEDS: FERROUS SULFATE 325 MG TAB PO SCH (10:03)
[2018-07-17] MEDS: METOPROLOL TARTRATE 50 MG TAB PO SCH ×2 (10:03→19:50)
[2018-07-17] MEDS: HYDROXYCHLOROQUINE SULFATE 200 MG TAB PO SCH ×2 (10:03→19:50)
[2018-07-17] MEDS: SERTRALINE 50 MG TAB PO SCH (10:04)
[2018-07-17] MEDS: predniSONE 5 MG TAB PO SCH (10:04)
[2018-07-17] MEDS: OXYBUTYNIN CHLORIDE 5 MG TAB PO SCH ×2 (10:04→19:50)
--- NOTE | 2018-07-17 10:55 | P.PN ---
Subjective Progress Note Date: 07/17/18 This is a 57-year-old female patient of Dr. Schmidt. Patient was sent to the ER for abnormal result on CAT scan. Patient reports she's had intermittent shortness of breath for the past 2 weeks and patient was ordered in outpatient computed tomography scan. 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 CT of chest that was completed yesterday showed redemonstration of dissection mid to distal abdominal aorta is stable and less prominent in size from the most recent CT. There is increasing mural thrombus i n the false lumen noted. Note is made of new lobar pulmonary embolism in the bilateral and left lower lobe with subsegmental extension. Additional medical history includes asthma, hypertension, rheumatoid arthritis. Dr. Carrizales per pulmonary notified of findings. Case was discussed with cardiothoracic surgery. It was decided to place patient on heparin drip. Dr. Vázquez for vascular surgery also consulted due to patient's history of dissecting thoracic aortic aneurysm. Venous Doppler also completed showing positive for bilateral DVTs. At this time patient is resting comfortably in bed. Patient appears in no distress. Patient denies chest pain or shortness of breath. Patient denies nausea vomiting or diarrhea. Patient denies any urinary burning or frequency. Hemoglobin remained stable at 12.5. Did discuss case with Dr. Carrizales in per critical care recommends keeping patient on heparin drip and monitoring for 1-2 days before switching over to oral anticoagulation. On 07/16/2018 patient is alert and oriented 3 resting comfortably in bed. Discussed case with case management. Patient currently not covered with as well for slava Junior patient will be transitioned to Coumadin. Patient did receive 7.5 mg Coumadin yesterday per pulmonary. INR 1.0 at this time patient denies chest pain or shortness of breath. Patient denies nausea vomiting or diarrhea. Patient denies any urinary burning or frequency On 07/17/2018 patient is alert and oriented 3. Patient's INR 1.7. Patient will recieve 7.5 Coumadin again tonight. Patient remains on heparin gtt. at this time patient denies any signs of bleeding. Patient denies nausea vomiting or diarrhea. Patient denies chest pain or shortness breath. Patient denies any urinary burning or frequency Objective - Vital Signs Vital signs: Vital Signs Temp 98 F 07/17/18 09:10 Pulse 75 07/17/18 09:10 Resp 16 07/17/18 09:10 BP 108/70 07/17/18 09:10 Pulse Ox 96 07/17/18 09:10 Intake & Output 07/16/18 07/17/18 07/17/18 18:59 06:59 18:59 Intake Total 860 1789.461 327.404 Balance 860 1789.461 327.404 Weight 106 kg Intake: Intake, IV Titration 160 289.461 87.404 Amount Heparin Sod,Pork in 0.45% 69.461 87.404 NaCl 25,000 unit In 0.45 % NaCl 1 250ml.bag @ 18 UNITS/KG/HR 19.187 mls/hr IV .Q13H2M SARAH Rx#: [id number] Sodium Chloride 0.9% 1, 160 220 000 ml @ 20 mls/hr IV . Q24H SARAH Rx#:[id number] Oral 700 1100 240 Blood Product 400 Other: Voiding Method Toilet # Voids 2 2 - Exam Head normocephalic Neck supple Lungs clear to auscultation bilaterally no wheezing or crackles Heart regular rate and rhythm S1-S2, no rub or gallop Abdomen is soft nontender nondistended positive bowel sounds no hepatosplenomegaly Extremities no edema Neuro alert and orientated to 3 - Labs CBC & Chem 7: 07/17/18 05:54 07/17/18 05:54 Labs: Abnormal Lab Results - Last 24 Hours (Table) 07/17/18 07/17/18 07/17/18 Range/Units 05:54 05:54 05:54 MCV 101.1 H (80.0-100.0) fL PT 17.2 H (9.0-12.0) sec INR 1.7 H (<1.2) APTT >200.0 H* (22.0-30.0) sec Chloride 109 H (98-107) mmol/L BUN 22 H (7-17) mg/dL Assessment and Plan Assessment: 1. Acute shortness of breath related to Acute pulmonary embolism involving pelvic well up in the left lower lobe pulmonary artery segments in addition to bilateral lower DVTs popliteal. Patient has been started on heparin drip. Dr. Vázquez for vascular surgery following. Due to patient's history of aortic dissection recommend patient stay on heparin drip for an additional 1-2 days for close monitoring before switching over to oral anticoagulation. Discussed case with critical care team. Per vascular surgery patient will stay on heparin drip and will be DC'd home on anticoagulation and will follow-up in office in 2 weeks. Patient has been started on Coumadin. Continue to monitor daily. INR 1.7. Patient will receive an additional 7.5 mg of Coumadin tonight 2. 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 At that time patient was transferred to [facility] and no surgical intervention was recommended. 3. Obstructive sleep apnea. Patient follows with sleep center. Patient maintained on CPAP. Pulmonary services are following 4. History of essential hypertension 5. History of rheumatoid arthritis 6. History of fibromyalgia 7. History of essential hypertension 8. History of depression Patient currently on heparin drip. GI prophylaxis Protonix Critical care and vascular surgeon currently following. I performed an examination of the patient and discussed their management with the Nurse Practitioner. I have reviewed the Nurse Practitioner's notes and agree with the documented findings and plan of care
[2018-07-17] MEDS: FOLIC ACID 1 MG TAB PO SCH (13:11)
--- NOTE | 2018-07-17 15:36 | P.PN ---
Subjective Progress Note Date: 07/17/18 Principal diagnosis: Acute pulmonary embolism involving the lingula on the left lower lobe pulmonary artery segments in addition to bilateral lower extremity DVT, popliteal. Unpro voked event. This is a 57-year-old patient was sent to the emergency department because of the normal CAT scan of the chest. The patient had a cardiac evaluation today and during her evaluation the patient was complaining of increased shortness of breath and pain that was somewhat pleuritic along the left side of the chest that is going on for the past 2 weeks. For that reason the patient had a CT angiogram that showed a old dissection in the mid and the distal abdominal aorta that has been stable and less prominent compared to the previous CAT scan from 2018. There was also an increasing neurothrombus and the false lumen and this was noted. At the same time, it was noted that the patient has new lobar pulmonary embolism in the lingula in the left lower lobe with segmental extension. For that reason, the patient was sent to the emergency department. I reviewed the records. I saw the patient was in the hospital back in October 2007 and at that time she was diagnosed having a aortic arch and abdominal aortic dissection. The patient was transferred to [facility] pH she was diagnosed having a stable dissection and no further surgical intervention was warranted and the patient was placed on beta blockers and the patient was discharged home. The patient states that she has been quite active. No sedentary lifestyle. No recent surgeries. No previous history of DVT or pulmonary embolism. No 70 bleeding complications. She is known to have rheumatoid arthritis, fibromyalgia, hypertension and depression and chronic back pain. Furthermore, the patient underwent a recent sleep evaluation sleep center and the patient was found to have severe CONSTANCE with an AHI of 63.2 and the patient was titrated to a CPAP pressure of 10 cm of water. Doppler of the lower extremity was positive for DVT in the right popliteal and left popliteal veins and the patient was diagnosed having bilateral lower extremity DVT. No trauma to the legs. No calf pain or tenderness no swelling in lower extremities bilaterally. She has chronic varicose veins. No hemoptysis. Hemodynamically stable at this point in time. Pulse oxing approximately a 9% on 2 L of oxygen by nasal cannula. The patient is seen today in follow-up on the selective care unit. She is awake alert no acute distress. Currently sitting up the bedside having lunch. She denies any worsening shortness of breath, cough or congestion. No chills or night sweats. Maintaining good O2 saturations in the mid to upper 90s on room air. She's been afebrile. Hemodynamically stable. White count 5.8. Hemoglobin 12.5. Creatinine 0.80. She remains on heparin drip. The patient is seen today in 07/16/2018 in follow-up on the selective care unit. She is currently resting quite comfortably in bed. Awake and alert in no acute distress. No shortness of breath, off or congestion. No hemoptysis. No chest pain. Maintaining good O2 saturations up to 100% on room air. She's afebrile. Hemodynamically stable. White count 6.2. Hemoglobin 12.1. INR 1.0. Creatinine 0.88. She'll receive another 7.5 mg of warfarin today. Heparin drip until therapeutic. The patient is seen today July 17 2018 in follow-up on the selective care unit. She is awake and alert in no acute distress. She is maintaining good O2 saturations in the 90s on room air. She's afebrile. Hemodynamically stable. no shortness of breath cough or congestion. No chest pain. No hemoptysis.white count 6.1. Hemoglobin 12.4. INR 1.7. Creatinine 0.91. Objective - Vital Signs Vital signs: Vital Signs Temp 98.4 F 07/17/18 12:00 Pulse 59 L 07/17/18 12:00 Resp 20 07/17/18 12:00 BP 106/60 07/17/18 12:00 Pulse Ox 96 07/17/18 12:00 Intake & Output 07/16/18 07/17/18 07/17/18 18:59 06:59 18:59 Intake Total 860 1789.461 827.404 Balance 860 1789.461 827.404 Weight 106 kg Intake: IV 260 Heparin Sod,Pork in 0.45% 80 NaCl 25,000 unit In 0.45 % NaCl 1 250ml.bag @ 18 UNITS/KG/HR 19.187 mls/hr IV .Q13H2M [facility] Rx#: [id number] Sodium Chloride 0.9% 1, 180 000 ml @ 20 mls/hr IV . Q24H [facility] Rx#:[id number] Intake, IV Titration 160 289.461 87.404 Amount Heparin Sod,Pork in 0.45% 69.461 87.404 NaCl 25,000 unit In 0.45 % NaCl 1 250ml.bag @ 18 UNITS/KG/HR 19.187 mls/hr IV .Q13H2M [facility] Rx#: [id number] Sodium Chloride 0.9% 1, 160 220 000 ml @ 20 mls/hr IV . Q24H [facility] Rx#:[id number] Oral 700 1100 480 Blood Product 400 Other: Voiding Method Toilet Toilet # Voids 2 2 1 - Exam GENERAL EXAM: Alert, pleasant 57-year-old female comfortable in no apparent distress. On room air. HEAD: Normocephalic. EYES: Normal reaction of pupils, equal size. NOSE: Clear with pink turbinates. THROAT: No erythema or exudates. NECK: No masses, no JVD. CHEST: No chest wall deformity. LUNGS: Equal air entry with no crackles, wheeze, rhonchi or dullness. CVS: S1 and S2 normal with no audible murmur, regular rhythm. ABDOMEN: No hepatosplenomegaly, normal bowel sounds, no guarding or rigidity. SPINE: No scoliosis or deformity SKIN: No rashes CENTRAL NERVOUS SYSTEM: No focal deficits, tone is normal in all 4 extremities. EXTREMITIES: There is no peripheral edema. No clubbing, no cyanosis. Peripheral pulses are intact. - Labs CBC & Chem 7: 07/17/18 05:54 07/17/18 05:54 Labs: Abnormal Lab Results - Last 24 Hours (Table) 07/17/18 07/17/18 07/17/18 Range/Units 05:54 05:54 05:54 MCV 101.1 H (80.0-100.0) fL PT 17.2 H (9.0-12.0) sec INR 1.7 H (<1.2) APTT >200.0 H* (22.0-30.0) sec Chloride 109 H (98-107) mmol/L BUN 22 H (7-17) mg/dL Assessment and Plan Assessment: Assessment 1 acute pulmonary embolism involving the lingula and the left lower lobe pulmonary artery segments in addition to bilateral lower extremity DVT, popliteal. 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 Akers. INR 1.7. She remains on a heparin drip. She"ll receive warfarin 7.5 mg tonight. Recheck INR in a.m. We will increase her activity as tolerated. We will continue to follow make further recommendations based on her clinical status. Probable home in the a.m. I, the cosigning physician, performed a history & physical examination of the patient. Lungs sounds are clear. Maintaining good O2 saturations in the 90s on room air. I discussed the assessment and plan of care with my nurse pract itjosiasr, Fernanda Boogie. I attest to the above note as dictated by her.
[2018-07-17] MEDS ORDERED: WARFARIN 7.5 MG TAB PO ONE (18:00)
[2018-07-17] MEDS: HEPARIN SOD,PORK IN 0.45% NACL 25,000 UNIT in 0.45% NACL 1 250ML.BAG IV SCH (19:49)
[2018-07-17] MEDS: QUEtiapine 100 MG TAB PO SCH (19:50)
[2018-07-17] MEDS: GABAPENTIN 300 MG CAP PO SCH (19:50)
[2018-07-18 01:21] LABS: Glucose,Whole Blood 107 mg/dL (75-99)
[2018-07-18] MEDS: PANTOPRAZOLE 40 MG TABLET PO SCH (06:08)
[2018-07-18 06:51] LABS: Basophils % (A) 0 %; Eosinophils # (A) 0.2 k/uL (0-0.7); Eosinophils % (A) 3 %; HCT 40.5 % (34.0-46.0); HGB 12.5 gm/dL (11.4-16.0); Lymphocytes # (A) 2.1 k/uL (1.0-4.8); Lymphocytes % (A) 33 %; MCH 30.8 pg (25.0-35.0); MCHC 30.8 g/dL (31.0-37.0); MCV 100.2 fL (80.0-100.0); Macrocytosis Slight; Mean Platelet Volume 7.2; Monocytes # (A) 0.4 k/uL (0-1.0); Monocytes % (A) 6 %; Neutrophils # (A) 3.7 k/uL (1.3-7.7); Neutrophils % (A) 57 %; Platelet Count 188 k/uL (150-450); RBC 4.04 m/uL (3.80-5.40); RDW 15.4 % (11.5-15.5); WBC 6.4 k/uL (3.8-10.6)
[2018-07-18 07:03] LABS: INR 3.2 (<1.2); Partial Thromboplastin Time 80.8 sec (22.0-30.0); Prothrombin Time 31.1 sec (9.0-12.0)
[2018-07-18 07:14] LABS: Albumin 3.4 g/dL (3.5-5.0); Calcium 9.6 mg/dL (8.4-10.2); Potassium 4.3 mmol/L (3.5-5.1); Total Bilirubin 0.4 mg/dL (0.2-1.3); Total Protein 6.4 g/dL (6.3-8.2)
[2018-07-18] MEDS: OXYBUTYNIN CHLORIDE 5 MG TAB PO SCH (08:47)
[2018-07-18] MEDS: FERROUS SULFATE 325 MG TAB PO SCH (08:47)
[2018-07-18] MEDS: FOLIC ACID 1 MG TAB PO SCH (08:47)
[2018-07-18] MEDS: SERTRALINE 50 MG TAB PO SCH (08:47)
[2018-07-18] MEDS: predniSONE 5 MG TAB PO SCH (08:47)
[2018-07-18] MEDS: HYDROXYCHLOROQUINE SULFATE 200 MG TAB PO SCH (08:47)
[2018-07-18 11:31] VITALS: PULSE 65; RESP 16; TEMP 97.7
--- NOTE | 2018-07-18 12:34 | P.PN ---
Subjective Progress Note Date: 07/18/18 This is a 57-year-old patient was sent to the emergency department because of the normal CAT scan of the chest. The patient had a cardiac evaluation today and during her evaluation the patient was complaining of increased shortness of breath and pain that was somewhat pleuritic along the left side of the chest that is going on for the past 2 weeks. For that reason the patient had a CT angiogram that showed a old dissection in the mid and the distal abdominal aorta that has been stable and less prominent compared to the previous CAT scan from 2018. There was also an increasing neurothrombus and the false lumen and this was noted. At the same time, it was noted that the patient has new lobar p ulmonary embolism in the lingula in the left lower lobe with segmental extension. For that reason, the patient was sent to the emergency department. I reviewed the records. I saw the patient was in the hospital back in October 2007 and at that time she was diagnosed having a aortic arch and abdominal aortic dissection. The patient was transferred to [facility] pH she was diagnosed having a stable dissection and no further surgical intervention was warranted and the patient was placed on beta blockers and the patient was discharged home. The patient states that she has been quite active. No sedentary lifestyle. No recent surgeries. No previous history of DVT or pulmonary embolism. No 70 bleeding complications. She is known to have rheumatoid arthritis, fibromyalgia, hypertension and depression and chronic back pain. Furthermore, the patient underwent a recent sleep evaluation sleep center and the patient was found to have severe CONSTANCE with an AHI of 63.2 and the patient was titrated to a CPAP pressure of 10 cm of water. Doppler of the lower extremity was positive for DVT in the right popliteal and left popliteal veins and the patient was diagnosed having bilateral lower extremity DVT. No trauma to the legs. No calf pain or tenderness no swelling in lower extremities bilaterally. She has chronic varicose veins. No hemoptysis. Hemodynamically stable at this point in time. Pulse oxing approximately a 9% on 2 L of oxygen by nasal cannula. The patient is seen today in follow-up on the selective care unit. She is awake alert no acute distress. Currently sitting up the bedside having lunch. She denies any worsening shortness of breath, cough or congestion. No chills or night sweats. Maintaining good O2 saturations in the mid to upper 90s on room air. She's been afebrile. Hemodynamically stable. White count 5.8. Hemoglobin 12.5. Creatinine 0.80. She remains on heparin drip. The patient is seen today in 07/16/2018 in follow-up on the selective care unit. She is currently resting quite comfortably in bed. Awake and alert in no acute distress. No shortness of breath, off or congestion. No hemoptysis. No chest pain. Maintaining good O2 saturations up to 100% on room air. She's afebrile. Hemodynamically stable. White count 6.2. Hemoglobin 12.1. INR 1.0. Creatinine 0.88. She'll receive another 7.5 mg of warfarin today. Heparin drip until therapeutic. The patient is seen today July 17 2018 in follow-up on the selective care unit. She is awake and alert in no acute distress. She is maintaining good O2 saturations in the 90s on room air. She's afebrile. Hemodynamically stable. no shortness of breath cough or congestion. No chest pain. No hemoptysis.white count 6.1. Hemoglobin 12.4. INR 1.7. Creatinine 0.91. On today's evaluation of 07/18/2018, the patient is doing extremely well. The patient is fully anticoagulated and INR is up to 3.2. She is emanating in the hallway. No bleeding complications. No nausea or vomiting or abdominal pain. No chest pain. No pleurisy or hemoptysis. IV heparin was discontinued. Objective - Vital Signs Vital signs: Vital Signs Temp 97.7 F 07/18/18 11:30 Pulse 65 07/18/18 11:30 Resp 16 07/18/18 11:30 BP 104/71 07/18/18 11:30 Pulse Ox 98 07/18/18 11:30 Intake & Output 07/17/18 07/18/18 07/18/18 18:59 06:59 18:59 Intake Total 7431.810 1610.909 300 Balance 0050.008 6339.909 300 Weight 107.3 kg Intake: IV 260 Heparin Sod,Pork in 0.45% 80 NaCl 25,000 unit In 0.45 % NaCl 1 250ml.bag @ 18 UNITS/KG/HR 19.187 mls/hr IV .Q13H2M [facility] Rx#: [id number] Sodium Chloride 0.9% 1, 180 000 ml @ 20 mls/hr IV . Q24H [facility] Rx#:[id number] Intake, IV Titration 136.404 251.909 Amount Heparin Sod,Pork in 0.45% 136.404 31.909 NaCl 25,000 unit In 0.45 % NaCl 1 250ml.bag @ 18 UNITS/KG/HR 19.187 mls/hr IV .Q13H2M [facility] Rx#: [id number] Sodium Chloride 0.9% 1, 220 000 ml @ 20 mls/hr IV . Q24H [facility] Rx#:[id number] Oral 720 900 300 Other: Voiding Method Toilet Toilet Toilet # Voids 2 3 - Exam The patient appeared well nourished and normally developed. Vital signs as documented. Head exam is unremarkable. No scleral icterus or corneal arcus noted. Neck is without jugular venous distension, thyromegaly, or carotid bruits. Carotid upstrokes are brisk bilaterally. Lungs are clear to auscultation and percussion. Cardiac exam reveals the PMI to be normally sized and situated. Rhythm is regular. First and second heart sounds normal. No murmurs, rubs or gallops. Abdominal exam reveals normal bowel sounds, no masses, no organomegaly and no aortic enlargement. Extremities are nonedematous and both femoral and pedal pulses are normal. - Labs CBC & Chem 7: 07/18/18 06:04 07/18/18 06:04 Labs: Abnormal Lab Results - Last 24 Hours (Table) 07/17/18 07/17/18 07/18/18 Range/Units 15:01 23:37 01:19 MCV (80.0-100.0) fL MCHC (31.0-37.0) g/dL PT (9.0-12.0) sec INR (<1.2) APTT 135.7 H* 68.7 H (22.0-30.0) sec Chloride (98-107) mmol/L BUN (7-17) mg/dL POC Glucose (mg/dL) 107 H (75-99) mg/dL Albumin (3.5-5.0) g/dL 07/18/18 07/18/18 07/18/18 Range/Units 06:04 06:04 06:04 MCV 100.2 H (80.0-100.0) fL MCHC 30.8 L (31.0-37.0) g/dL PT 31.1 H (9.0-12.0) sec INR 3.2 H (<1.2) APTT 80.8 H (22.0-30.0) sec Chloride 111 H (98-107) mmol/L BUN 22 H (7-17) mg/dL POC Glucose (mg/dL) (75-99) mg/dL Albumin 3.4 L (3.5-5.0) g/dL Assessment and Plan Plan: Assessment 1 acute pulmonary embolism involving the lingula and the left lower lobe pulmonary artery segments in addition to bilateral lower extremity DVT, popliteal. This is an unprovoked event 2 acute shortness of breath and chest pain secondary to above 3 history of aortic dissection involving the thoracic aortic arch and descending thoracic aorta, stable and less prominent compared to the previous CAT scan from 2018 4 obesity with a BMI of 36.8 5 obstructive sleep apnea CVA with an AHI of 63 maintained on CPAP pressure of 10 cm of water 6 hypertension 7 rheumatoid arthritis 8 fibromyalgia 9 hypertension 10 depression Plan The patient is fully anticoagulated with warfarin. INR is at 3.2. IV heparin has been discontinued. We'll discharge this patient home once cleared by medicine. Hemoglobin remains stable. No bleeding complications.
--- NOTE | 2018-07-18 12:49 | P.DS ---
Providers Date of admission: 07/14/18 13:23 Expected date of discharge: 07/18/18 Attending physician: Vanesa Ruthefrord Consults: 07/14/18 13:23 Consult Physician Stat Consulting Provider: Regina Akers Consult Reason/Comments: Pulmonary embolus Do you want consulting provider notified?: Already Contacted 07/14/18 13:24 Consult Physician Urgent Consulting Provider: Rogerio Vázquez Consult Reason/Comments: PE, H/O dissection Do you want consulting provider notified?: Yes 07/15/18 13:40 Consult Physician Routine Consulting Provider: Harjinder Zuñiga Consult Reason/Comments: Bilateral DVTs and PE. Do you want consulting provider notified?: Yes Primary care physician: Shana Schmidt Hospital Course: Discharge diagnosis 1. Acute shortness of breath related to Acute pulmonary embolism involving pelvic well up in the left lower lobe pulmonary artery segments in addition to bilateral lower DVTs popliteal. Patient has been started on heparin drip. Dr. Vázquez for vascular surgery following. Due to patient's history of aortic dissection recommend patient stay on heparin drip for an additional 1-2 days for close monitoring before switching over to oral anticoagulation. Discussed case with critical care team. Per vascular surgery patient will stay on heparin drip and will be DC'd home on anticoagulation and will follow-up in office in 2 we eks. Patient has been started on Coumadin. Patient received 7.5 mg 6 creatinine 2 days in a row. Patient's INR now 3.2. Heparin drip DC'd. Patient will be DC'd home on 5 mg Coumadin daily. Patient advised to follow-up closely with her PCP. PT/INR has been ordered for 2 days. Patient to follow-up outpatient with vascular surgery and hematology services. 2. 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 At that time patient was transferred to [facility] and no surgical intervention was recommended. 3. Obstructive sleep apnea. Patient follows with sleep center. Patient maintained on CPAP. Pulmonary services are following 4. History of essential hypertension 5. History of rheumatoid arthritis 6. History of fibromyalgia 7. History of essential hypertension 8. History of depression Hospital Course This is a 57-year-old female patient of Dr. Schmidt. Patient was sent to the ER for abnormal result on CAT scan. Patient reports she's had intermittent shortness of breath for the past 2 weeks and patient was ordered in outpatient computed tomography scan. Patient does have a known past medical history of dissection mid to distal abdominal aorta in which patient was sent to [facility] one year ago and at that time patient is recommended for monitoring and no surgical intervention. CT of chest that was completed yesterday showed redemonstration of dissection mid to distal abdominal aorta is stable and less prominent in size from the most recent CT. There is increasing mural thrombus in the false lumen noted. Note is made of new lobar pulmonary embolism in the bilateral and left lower lobe with subsegmental extension. Additional medical history includes asthma, hypertension, rheumatoid arthritis. Dr. Carrizales per pulmonary notified of findings. Case was discussed with cardiothoracic surgery. It was decided to place patient on heparin drip. Dr. Vázquez for vascular surgery also consulted due to patient's history of dissecting thoracic aortic aneurysm. Venous Doppler also completed showing positive for bilateral DVTs. At this time patient is resting comfortably in bed. Patient appears in no distress. Patient denies chest pain or shortness of breath. Patient denies nausea vomiting or diarrhea. Patient denies any urinary burning or frequency. Hemoglobin remained stable at 12.5. Did discuss case with Dr. Carrizales in per cr itical care recommends keeping patient on heparin drip and monitoring for 1-2 days before switching over to oral anticoagulation. On 07/16/2018 patient is alert and oriented 3 resting comfortably in bed. Discussed case with case management. Patient currently not covered with as well for slava Junior patient will be transitioned to Coumadin. Patient did receive 7.5 mg Coumadin yesterday per pulmonary. INR 1.0 at this time patient denies chest pain or shortness of breath. Patient denies nausea vomiting or diarrhea. Patient denies any urinary burning or frequency On 07/17/2018 patient is alert and oriented 3. Patient's INR 1.7. Patient will recieve 7.5 Coumadin again tonight. Patient remains on heparin gtt. at this time patient denies any signs of bleeding. Patient denies nausea vomiting or diarrhea. Patient denies chest pain or shortness breath. Patient denies any urinary burning or frequency On 07/18/2018 patient is alert and oriented 3. Patient's INR 3.2. Patient will be DC'd home on 5 mg Coumadin daily. Patient to have repeat PT/INR by PCP in 2 days. Patient for further management of Coumadin by her PCP. At this time patient denies any signs of bleeding. Hemoglobin remained stable. Patient has been cleared for discharge from pulmonary services. Patient denies chest pain or shortness breath. Patient denies nausea vomiting or diarrhea. Patient denie s any urinary burning or frequency. Patient to follow-up with consulting providers including gastric surgery and hematology outpatient. I performed an examination of the patient and discussed their management with the Nurse Practitioner. I have reviewed the Nurse Practitioner's notes and agree with the documented findings and plan of care Patient Condition at Discharge: Stable Plan - Discharge Summary Discharge Rx Participant: No New Discharge Prescriptions: New Warfarin Sodium [Coumadin] 5 mg PO DAILY 30 Days #30 tablet Continue Hydroxychloroquine Sulfate [Plaquenil] 200 mg PO BID Folic Acid 1 mg PO DAILY Ferrous Sulfate [Feosol] 325 mg PO DAILY Ipratropium [place] [Atrovent Hfa] 2 puff INHALATION RT-QID PRN PRN Reason: Shortness Of Breath Albuterol Inhaler [Ventolin Hfa Inhaler] 2 puff INHALATION RT-Q6H PRN PRN Reason: Shortness Of Breath Ranitidine HCl [Zantac] 150 mg PO BID Adalimumab [Humira Pen] 40 mg SQ [id number] Sertraline [Zoloft] 50 mg PO DAILY QUEtiapine [SEROquel] 100 mg PO HS Lidocaine HCl [Aspercreme] 1 applic TOPICAL DAILY PRN PRN Reason: KNEE,FEET,SHOULDER,NECK PAIN prednisoLONE ACETATE [Pred Forte 1%] 1 drop BOTH EYES DAILY PRN PRN Reason: RA FLARE/HEADACHE predniSONE See Taper PO DIRECTED Metoprolol Tartrate [Lopressor] 50 mg PO BID Albuterol Inhaler [Ventolin Hfa Inhaler] 2 puff INHALATION RT-Q12H PRN PRN Reason: Wheezing Acetaminophen Tab [Tylenol] 1,000 mg PO Q8H Gabapentin [Neurontin] 300 mg PO HS Oxybutynin Chloride [Ditropan] 5 mg PO BID Methotrexate 50mg/2ml 25 mg IM Q7D Discontinued Cephalexin [Keflex] 500 mg PO Q6HR #40 cap Discharge Medication List Ferrous Sulfate [Feosol] 325 mg PO DAILY 07/20/15 [History] Folic Acid 1 mg PO DAILY 07/20/15 [History] Hydroxychloroquine Sulfate [Plaquenil] 200 mg PO BID 07/20/15 [History] Adalimumab [Humira Pen] 40 mg SQ [id number] 11/12/17 [History] Albuterol Inhaler [Ventolin Hfa Inhaler] 2 puff INHALATION RT-Q6H PRN 11/12/17 [History] Ipratropium [place] [Atrovent Hfa] 2 puff INHALATION RT-QID PRN 11/12/17 [History] Ranitidine HCl [Zantac] 150 mg PO BID 11/12/17 [History] Acetaminophen Tab [Tylenol] 1,000 mg PO Q8H 07/14/18 [History] Albuterol Inhaler [Ventolin Hfa Inhaler] 2 puff INHALATION RT-Q12H PRN 07/14/18 [History] Gabapentin [Neurontin] 300 mg PO HS 07/14/18 [History] Lidocaine HCl [Aspercreme] 1 applic TOPICAL DAILY PRN 07/14/18 [History] Methotrexate 50mg/2ml 25 mg IM Q7D 07/14/18 [History] Metoprolol Tartrate [Lopressor] 50 mg PO BID 07/14/18 [History] Oxybutynin Chloride [Ditropan] 5 mg PO BID 07/14/18 [History] QUEtiapine [SEROquel] 100 mg PO HS 07/14/18 [History] Sertraline [Zoloft] 50 mg PO DAILY 07/14/18 [History] predniSONE See Taper PO DIRECTED 07/14/18 [History] prednisoLONE ACETATE [Pred Forte 1%] 1 drop BOTH EYES DAILY PRN 07/14/18 [History] Warfarin Sodium [Coumadin] 5 mg PO DAILY 30 Days #30 tablet 07/18/18 [Rx] Follow up Appointment(s)/Referral(s): Shana Schmidt DO [Primary Care Provider] - 07/23/18 10:45 am (thursday) Regina Akers MD [STAFF PHYSICIAN] - 1 Week Ambulatory/Diagnostic Orders: Prothrombin Time INR [LAB.AMB] Time Frame: 2 Days, Location: None Selected Activity/Diet/Wound Care/Special Instructions: Activity as tolerated Diet heart healthy Patient will be discharged on 5 mg Coumadin daily. Patient advised to change have PT/INR checked in 2 days by PCP and further management per PCP She to also follow-up with surgeon from [facility] Discharge Disposition: HOME SELF-CARE
[2018-07-18 12:54] VITALS: BP 130/58
[2018-07-18] MEDS: METOPROLOL TARTRATE 50 MG TAB PO SCH (12:58)
--- NOTE | 2018-07-18 22:56 | P.PN ---
Subjective Progress Note Date: 07/18/18 The patient is tolerating anti-coagulation well. Respiratory status is back to normal. She denies any lower extremity pain at this time. Objective - Vital Signs Vital signs: Vital Signs Temp 97.7 F 07/18/18 11:30 Pulse 65 07/18/18 11:30 Resp 16 07/18/18 11:30 BP 130/58 07/18/18 12:54 Pulse Ox 98 07/18/18 11:30 Intake & Output 07/18/18 07/18/18 07/19/18 06:59 18:59 06:59 Intake Total 1151.909 522 Balance 1151.909 522 Weight 107.3 kg Intake: Intake, IV Titration 251.909 Amount Heparin Sod,Pork in 0.45% 31.909 NaCl 25,000 unit In 0.45 % NaCl 1 250ml.bag @ 18 UNITS/KG/HR 19.187 mls/hr IV .Q13H2M SARAH Rx#: [id number] Sodium Chloride 0.9% 1, 220 000 ml @ 20 mls/hr IV . Q24H SARAH Rx#:[id number] Oral 900 522 Other: Voiding Method Toilet Toilet # Voids 3 1 - Constitutional General appearance: Present: no acute distress - EENT Eyes: Present: EOMI ENT: Present: hearing grossly normal, normal oropharynx - Respiratory Respiratory: bilateral: CTA - Cardiovascular Rhythm: regular Heart sounds: normal: S1, S2 - Gastrointestinal General gastrointestinal: Present: normal bowel sounds, soft - Integumentary Integumentary: Present: normal - Neurologic Neurologic: Present: CNII-XII intact - Musculoskeletal Musculoskeletal: Present: strength equal bilaterally - Psychiatric Psychiatric: Present: A&O x's 3 - Labs CBC & Chem 7: 07/18/18 06:04 07/18/18 06:04 Labs: Abnormal Lab Results - Last 24 Hours (Table) 07/17/18 07/18/18 07/18/18 Range/Units 23:37 01: 06:04 MCV 100.2 H (80.0-100.0) fL MCHC 30.8 L (31.0-37.0) g/dL PT (9.0-12.0) sec INR (<1.2) APTT 68.7 H (22.0-30.0) sec Chloride (98-107) mmol/L BUN (7-17) mg/dL POC Glucose (mg/dL) 107 H (75-99) mg/dL Albumin (3.5-5.0) g/dL 07/18/18 07/18/18 Range/Units 06:04 06:04 MCV (80.0-100.0) fL MCHC (31.0-37.0) g/dL PT 31.1 H (9.0-12.0) sec INR 3.2 H (<1.2) APTT 80.8 H (22.0-30.0) sec Chloride 111 H (98-107) mmol/L BUN 22 H (7-17) mg/dL POC Glucose (mg/dL) (75-99) mg/dL Albumin 3.4 L (3.5-5.0) g/dL Assessment and Plan (1) DVT, bilateral lower limbs Narrative/Plan: The patient's symptoms have improved. She is tolerating anticoagulation well. - I had a long discussion with the patient and her family regarding pathophysiology and management going forward. No acute, transient provoking factor was identified. Patient does have a chronic ongoing risk factor, specifically inflammation from her rheumatoid arthritis. Therefore in her situation, at this time, prolonged anticoagulation would be suggested, as long as she tolerates treatment well. - The patient is being transitioned from heparin to warfarin. She will be discharged on the same. - This is her first episode, with known underlying chronic inflammation. There is no significant family history. Therefore hypercoagulable testing is not indicated. - In the future, if the rheumatoid arthritis is very well controlled, and she fits and appropriately low risk profile, change in treatment may be considered. - Case discussed with nursing. The patient should follow-up in the office in about 3 months. At that time repeat imaging with Dopplers and CTA will be ordered to get a new baseline. Status: Acute Code(s): I82.403 - ACUTE EMBOLISM AND THOMBOS UNSP DEEP VEINS OF LOW EXTRM, BI SNOMED Code(s): 419420565 (2) Pulmonary embolism Narrative/Plan: As above Status: Acute Code(s): I26.99 - OTHER PULMONARY EMBOLISM WITHOUT ACUTE COR PULMONALE SNOMED Code(s): 91090605 Plan: Case was also discussed with the rheumatology. Patient will follow-up after discharge. There is no contraindication to the patient resuming her Humira, with her ongoing anticoagulation
[2018-07-20] MEDS ORDERED: predniSONE 5 MG TAB PO SCH (09:00)
== END 2018-07-18 14:41 | disposition home or self-care (01) | DRG 175 ==
LOC: EC 12:01 → 3SCARD 13:23
PROVIDERS: ADMIT Internal Medicine; ATTEND Internal Medicine
DX: I26.99 Other pulmonary embolism without acute cor pulmonale (principal); I71.02 Dissection of abdominal aorta; I82.433 Acute embolism and thrombosis of popliteal vein, bilateral; E66.9 Obesity, unspecified; F32.9 Major depressive disorder, single episode, unspecified; G47.33 Obstructive sleep apnea (adult) (pediatric); G89.29 Other chronic pain; I10 Essential (primary) hypertension; I73.9 Peripheral vascular disease, unspecified; I83.90 Asymptomatic varicose veins of unspecified lower extremity; J45.909 Unspecified asthma, uncomplicated; M06.9 Rheumatoid arthritis, unspecified; M79.7 Fibromyalgia; Z68.36 Body mass index [BMI] 36.0-36.9, adult; Z79.899 Other long term (current) drug therapy; Z82.49 Family history of ischemic heart disease and other diseases of the circulatory system; Z99.89 Dependence on other enabling machines and devices; Z90.49 Acquired absence of other specified parts of digestive tract; Z79.52 Long term (current) use of systemic steroids; Z88.8 Allergy status to other drugs, medicaments and biological substances
CPT/HCPCS: 36415; 80053; 83735; 84484; 85025; 85610; 85730; 90686; 93005; 93970; 94760; 96365; 96366; 96376; 99291

== ENCOUNTER → 2018-07-14 | Outpatient (CLI) | payer OTHER ==
--- NOTE | 2018-07-14 11:22 | CT ---
EXAMINATION TYPE: CT angio thor/abd pel aorta DATE OF EXAM: 07/14/2018 COMPARISON: CT chest and abdomen January 13, [address] November 12, 2017. HISTORY: Follow up to aortic dissection CT DLP: 2384.8 mGycm. Automated Exposure Control for Dose Reduction was Utilized. CONTRAST: CTA scan of the thorax, abdomen and pelvis is performed without oral and without and with IV Contrast , patient injected with 100 mL of Isovue 370. Three-D reconstructed images are created and workstatio n and reviewed. FINDINGS: VASCULAR: Normal 3 vessel origin from aortic arch is redemonstrated. No aneurysm or dissection in the thoracic aorta. Mild peripheral noncalcified plaque descending aorta is redemonstrated. There is a p atent celiac artery, SMA, and bilateral single renal arteries redemonstrated. At origin of renal freddy mervat there is persistent posterior lateral hypodensity with linear hyperdensity extending vertically through the midline of the aorta and becomes more horizontal right before the bifurcation consistent with aortic dissection. There is increasing noncalcified plaque or mural thrombus in the right aspect of the abdominal aorta on current study. Aorta measures up to 2.8 cm transversely axial image 67. Ao rta measures up to 2.5 cm AP diameter right before bifurcation axial image 77. Overall size of aorta is stable or slightly less prominent from most recent CT. There is no extension of dissection into th e iliac artery branches which remain patent. There is no significant plaque in the common, internal, or external iliac arteries bilaterally. The common femoral arteries branching into superficial and de ep femoral arteries in the bilateral groin region are unremarkable. RAYMOND remains patent axial image 72 . There is new filling defect in the distal left pulmonary artery as it bifurcates into lingular and lo wer lobe branches seen axial images 24 through axial image 30. This appears new from prior CT. LUNGS: The lungs are grossly clear, there is no concerning parenchymal mass or nodule identified. T here is no pleural effusion or pneumothorax seen. The tracheobronchial tree is patent. MEDIASTINUM: There are no greater than 1 cm noncalcified hilar or mediastinal lymph nodes. Some promi nent but calcified thoracic lymph nodes remain present No pericardial effusion is seen. OTHER: No additional significant abnormality is seen. LIVER/GB: Cholecystectomy clips are present.. PANCREAS: No significant abnormality is seen. SPLEEN: No significant abnormality is seen. ADRENALS: No significant abnormality is seen. KIDNEYS: No significant abnormality is seen. BOWEL: No significant abnormality is seen. GENITAL ORGANS: Anteverted uterus is redemonstrated. LYMPH NODES: No greater than 1cm abdominal or pelvic lymph nodes are appreciated. OSSEOUS STRUCTURES: Mild to moderate disc space narrowing lower lumbar levels is present. There is mi ld to moderate multilevel anterior and lateral spurring in the thoracic spine with slight S-shaped sc oliotic curvature OTHER: No significant additional abnormality is seen. 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 There is increasing mural thrombus in the false lumen noted. Note is mad e of new lobar pulmonary embolism in the lingula and left lower lobe with segmental extension. Critical results of acute pulmonary embolism communicated to ordering cardiothoracic surgeon via tele phone at time of dictation. We were asked to call primary care physician. polysomnographic technologist discussed c ase with primary care physician pest controller assistant who is calling patient to discuss above results. A [place] level critical message alert has been initiated for Shana Schmidt DO via the [employer] Critical Results System on 07/14/2018 11:20 AM. This message alert has been sent to [facility] elena kennedy DO via the preferences provided by the clinician for the receipt of Radiology Critical Findings . Message ID [id number].
== END | disposition home or self-care (01) ==
LOC: RADCTMAIN 09:03
PROVIDERS: ATTEND Surgery
DX: I71.02 Dissection of abdominal aorta (principal); I74.09 Other arterial embolism and thrombosis of abdominal aorta; I26.99 Other pulmonary embolism without acute cor pulmonale
CPT/HCPCS: 71275; 74174; Q9967

== ENCOUNTER → 2019-02-17 | Outpatient (CLI) | payer OTHER ==
[2019-02-17 20:44] LABS: C Reactive Protein 0.4 mg/dL (0.0-0.8)
[2019-02-17 21:40] LABS: HIV 1 AB Non-Reactive (Non-Reactive); HIV 2 AB Non-Reactive (Non-Reactive); HIV AB P24 Non-Reactive (Non-Reactive); HIV P24 AG Non-Reactive (Non-Reactive)
[2019-02-18 08:28] LABS: Angiotensin-1 Converting Enz. 11 U/L (8-52)
[2019-02-18 11:16] LABS: HLA B27 NEGATIVE
[2019-02-18 13:20] LABS: C-ANCA <1:20 Titer (<1:20)
== END | disposition home or self-care (01) ==
LOC: LABWHC1 10:54
PROVIDERS: ATTEND Ophthalmology
DX: H20.9 Unspecified iridocyclitis (principal)
CPT/HCPCS: 36415; 82164; 85549; 85652; 86038; 86140; 86255; 86431; 86780; 86812; 87390

== ENCOUNTER 2019-02-22 20:29 | Emergency (ER) | payer OTHER ==
[2019-02-22 20:52] VITALS: BP 125/70; TEMP 98.5
[2019-02-22 21:29] LABS: Basophils # (A) 0.1 k/uL (0-0.2); Basophils % (A) 1 %; Eosinophils # (A) 0.3 k/uL (0-0.7); Eosinophils % (A) 4 %; HCT 34.5 % (34.0-46.0); HGB 11.6 gm/dL (11.4-16.0); Lymphocytes % (A) 23 %; MCH 32.1 pg (25.0-35.0); MCHC 33.7 g/dL (31.0-37.0); MCV 95.1 fL (80.0-100.0); Mean Platelet Volume 6.9; Monocytes # (A) 0.4 k/uL (0-1.0); Monocytes % (A) 5 %; Neutrophils # (A) 6.1 k/uL (1.3-7.7); Neutrophils % (A) 68 %; Platelet Count 194 k/uL (150-450); RBC 3.63 m/uL (3.80-5.40)
[2019-02-22 21:49] LABS: Partial Thromboplastin Time 53.8 sec (22.0-30.0); Prothrombin Time 48.9 sec (9.0-12.0)
--- NOTE | 2019-02-22 21:53 | CT ---
EXAMINATION: CT brain wo con DATE AND TIME: 02/22/2019 9:31 PM CLINICAL INDICATION: PHH; Headaches; Takes coumadin TECHNIQUE: Standard departmental protocol.; 1098.4; COMPARISON: None. FINDINGS: The calvarium is intact. There is no intracranial hemorrhage. There is no intracranial mass or mass effect. No definite new intra-axial or extra-axial attenuation defect. The paranasal sinuses, middle ear cavities, and mastoid sinus air cells are clear. The orbits are unremarkable. IMPRESSION: NO ACUTE PROCESS.
[2019-02-22 21:56] LABS: INR 5.1 (<1.2)
--- NOTE | 2019-02-22 22:38 | ED ---
General Adult HPI - General Chief complaint: Skin/Abscess/Foreign Body Stated complaint: L Arm Bruising Time Seen by Provider: 02/22/19 20:59 Source: patient Mode of arrival: ambulatory Limitations: no limitations - History of Present Illness Initial comments: 58-year-old female patient presents to the emergency department today for evaluation of bruising to the left upper arm. Patient states that the bruise has been rapidly growing in size throughout the day. Patient states she does take Coumadin for history of DVT and pulmonary embolism. States that she is having an aching pain to the arm. Denies any swelling. Denies numbness or tingling to the hand. Denies any known injury. States she woke this morning with the bruising. States her last INR was last month and was 4.1. Patient denies any recent rash, fever, chills, shortness breath, chest pain, abdominal pain, nausea, vomiting, diarrhea, constipation, back pain, numbness, tingling, dizziness, weakness, hematuria, dysuria, urinary urgency, urinary frequency, headache, visual changes, or any other complaints. - Related Data Home Medications Medication Instructions Recorded Confirmed Folic Acid 1 mg PO DAILY 07/20/15 02/22/19 Hydroxychloroquine Sulfate 200 mg PO BID 07/20/15 02/22/19 [Plaquenil] Ipratropium [place] [Atrovent Hfa] 2 puff INHALATION RT-QID PRN 11/12/17 02/22/19 Ranitidine HCl [Zantac] 150 mg PO BID 11/12/17 02/22/19 Gabapentin [Neurontin] 300 mg PO HS 07/14/18 02/22/19 Methotrexate 50mg/2ml 25 mg IM MO 07/14/18 02/22/19 Metoprolol Tartrate [Lopressor] 50 mg PO BID 07/14/18 02/22/19 Oxybutynin Chloride [Ditropan] 5 mg PO DAILY 07/14/18 02/22/19 predniSONE See Taper PO DIRECTED 07/14/18 02/22/19 Atorvastatin [Lipitor] 20 mg PO DAILY 02/22/19 02/22/19 Cephalexin [Keflex] 500 mg PO Q8HR 02/22/19 02/22/19 DULoxetine HCL [Cymbalta] 30 mg PO DAILY 02/22/19 02/22/19 Gabapentin 600 mg PO HS 02/22/19 02/22/19 Lisinopril [Zestril] 10 mg PO DAILY 02/22/19 02/22/19 QUEtiapine FUMARATE [SEROquel] 300 mg PO HS 02/22/19 02/22/19 Warfarin [Coumadin] 2.5 mg PO HS 02/22/19 02/22/19 Allergies Allergy/AdvReac Type Severity Reaction Status Date / Time phenobarbital Allergy rash & Verified 02/22/19 22:00 swells up Review of Systems ROS Statement: Those systems with pertinent positive or pertinent negative responses have been documented in the HPI. ROS Other: All systems not noted in ROS Statement are negative. Past Medical History Past Medical History: Asthma, Hypertension, Rheumatoid Arthritis (RA), Vascular Disorder Additional Past Medical History / Comment(s): Obesity, aortic dissection involving the thoracic arch and descending aorta diagnosed back in October 2017 and has been stable since, rheumatoid arthritis, fibromyalgia, osteoarthritis, severe obstructive sleep apnea with an AHI of 63 maintained on CPAP pressure of 10 cm of water, hypertension, peripheral vascular disease, chronic anemia, history of left breast cysts, history of depression, chronic back pain, History of Any Multi-Drug Resistant Organisms: None Reported Past Surgical History: Section, Cholecystectomy, Tubal Ligation Additional Past Surgical History / Comment(s): Colonoscopy Past Anesthesia/Blood Transfusion Reactions: No Reported Reaction Past Psychological History: No Psychological Hx Reported Smoking Status: Never smoker Past Alcohol Use History: None Reported Past Drug Use History: None Reported - Past Family History Father Family Medical History: Myocardial Infarction ([place]) Additional Family Medical History / Comment(s): Father of a ND at the age of 36 yrs. Mother Family Medical History: No Reported History Additional Family Medical History / Comment(s): Mother is healthy and 75 yrs old. General Exam Limitations: no limitations General appearance: alert, in no apparent distress, other (Physical well- developed, well-nourished adult female patient in no acute distress. Vital signs upon presentation are temperature 98.5F, pulse 94, respirations 18, blood pressure 125/70, pulse ox 96% on room air.) Respiratory exam: Present: normal lung sounds bilaterally. Absent: respiratory distress, wheezes, rales, rhonchi, stridor Cardiovascular Exam: Present: regular rate, normal rhythm, normal heart sounds. Absent: systolic murmur, diastolic murmur, rubs, gallop, clicks Extremities exam: Present: full ROM, normal capillary refill, other (Ecchymosis noted to the right upper arm extending laterally to medially over the anterior aspect. Skin is otherwise pink, warm, dry. Cap refills less than 3 seconds. Radial pulses 2+ and equal bilaterally. There is no soft tissue swelling.). Absent: normal inspection, tenderness, pedal edema, joint swelling, calf tenderness Neurological exam: Present: alert, oriented X3, CN II-XII intact, other (Strength in all 4 extremities is 5/5.) Psychiatric exam: Present: normal affect, normal mood Skin exam: Present: warm, dry, intact, normal color. Absent: rash Course Vital Signs 02/22/19 02/22/19 20:48 23:04 Temperature 98.5 F Pulse Rate 94 78 Respiratory 18 19 Rate Blood Pressure 125/70 O2 Sat by Pulse 96 97 Oximetry Medical Decision Making - Medical Decision Making 58 old female patient percents to the emergency department today for evaluation of expanding ecchymosis to the left upper arm. Physical examination did reveal good neurovascular status. No concern for bony injury. Patient does take Coumadin, we did perform CBC which was unremarkable. INR was elevated at 5.5. She did report intermittent mild headache, CT brain negative. She was instructed to withhold Coumadin today and tomorrow. She is instructed to contact her physician in the morning for further instructions. Return parameters discussed in detail. She verbalizes understanding and agrees with this plan. - Lab Data Result diagrams: 02/22/19 21:15 Lab Results 02/22/19 02/22/19 Range/Units 21:15 21:15 WBC 9.0 (3.8-10.6) k/uL RBC 3.63 L (3.80-5.40) m/uL Hgb 11.6 (11.4-16.0) gm/dL Hct 34.5 (34.0-46.0) % MCV 95.1 (80.0-100.0) fL MCH 32.1 (25.0-35.0) pg MCHC 33.7 (31.0-37.0) g/dL RDW 14.0 (11.5-15.5) % Plt Count 194 (150-450) k/uL Neutrophils % 68 % Lymphocytes % 23 % Monocytes % 5 % Eosinophils % 4 % Basophils % 1 % Neutrophils # 6.1 (1.3-7.7) k/uL Lymphocytes # 2.0 (1.0-4.8) k/uL Monocytes # 0.4 (0-1.0) k/uL Eosinophils # 0.3 (0-0.7) k/uL Basophils # 0.1 (0-0.2) k/uL PT 48.9 H (9.0-12.0) sec INR 5.1 H* (<1.2) APTT 53.8 H (22.0-30.0) sec - Radiology Data Radiology results: report reviewed, image reviewed CT brain without contrast was obtained. Report was reviewed in its entirety. Impression by Dr. Eriberto Garzon shows no acute process. Disposition Clinical Impression: Elevated INR, Traumatic ecchymosis of left upper arm Disposition: HOME SELF-CARE Condition: Good Instructions (If sedation given, give patient instructions): Elevated INR (ED), Ecchymosis (ED) Additional Instructions: Keep compression over the left arm. Do not take Coumadin tonight or tomorrow night. Contact her physician in the morning for further instructions. Return to the emergency department for any new, worsening, or concerning symptoms. Is patient prescribed a controlled substance at d/c from ED?: No Referrals: Shana Schmidt DO [Primary Care Provider] - 1-2 days Time of Disposition: 22:38
[2019-02-22 23:06] VITALS: PULSE 78; RESP 19
== END 2019-02-22 23:05 | disposition home or self-care (01) ==
LOC: EC 20:29
DX: S40.022A Contusion of left upper arm, initial encounter (principal); R79.1 Abnormal coagulation profile; J45.909 Unspecified asthma, uncomplicated; I10 Essential (primary) hypertension; M06.9 Rheumatoid arthritis, unspecified; G47.33 Obstructive sleep apnea (adult) (pediatric); E66.9 Obesity, unspecified; Z68.36 Body mass index [BMI] 36.0-36.9, adult; Z79.51 Long term (current) use of inhaled steroids; Z79.01 Long term (current) use of anticoagulants; Z79.899 Other long term (current) drug therapy; Z88.8 Allergy status to other drugs, medicaments and biological substances; Z86.711 Personal history of pulmonary embolism; Z86.718 Personal history of other venous thrombosis and embolism
CPT/HCPCS: 36415; 70450; 85025; 85610; 85730; 99284

== ENCOUNTER 2019-02-27 11:30 | Inpatient (IN) | payer OTHER ==
--- NOTE | 2019-02-27 11:57 | ED ---
General Adult HPI - General Chief complaint: Urogenital Stated complaint: Blood in urine Time Seen by Provider: 02/27/19 11:35 Source: patient, RN notes reviewed Mode of arrival: ambulatory Limitations: physical limitation - History of Present Illness Initial comments: This is a 58-year-old female presents to the emergency department stating that she's been treated for urinary tract infection over the last 2 days. Patient states today she feels worse and she is urinating quite a bit of blood she is on Coumadin. Patient states she has left lower quadrant abdominal pain as well. Patient denies any back pain. Patient denies any fever chills. Patient denies any nausea vomiting diarrhea. Patient denies any chest pain difficulty breathing or shortness of breath. Patient states the pain seems to subside anytime she urinates. - Related Data Home Medications Medication Instructions Recorded Confirmed Folic Acid 1 mg PO DAILY 07/20/15 02/27/19 Hydroxychloroquine Sulfate 200 mg PO BID 07/20/15 02/27/19 [Plaquenil] Ipratropium [place] [Atrovent Hfa] 2 puff INHALATION RT-QID PRN 11/12/17 02/27/19 Ranitidine HCl [Zantac] 150 mg PO BID 11/12/17 02/27/19 Methotrexate 50mg/2ml 25 mg IM MO 07/14/18 02/27/19 Metoprolol Tartrate [Lopressor] 50 mg PO BID 07/14/18 02/27/19 Oxybutynin Chloride [Ditropan] 5 mg PO DAILY 07/14/18 02/27/19 predniSONE See Taper PO DIRECTED 07/14/18 02/27/19 Atorvastatin [Lipitor] 20 mg PO DAILY 02/22/19 02/27/19 Cephalexin [Keflex] 500 mg PO Q8HR 02/22/19 02/27/19 DULoxetine HCL [Cymbalta] 30 mg PO DAILY 02/22/19 02/27/19 Lisinopril [Zestril] 10 mg PO DAILY 02/22/19 02/27/19 QUEtiapine FUMARATE [SEROquel] 300 mg PO HS 02/22/19 02/27/19 Warfarin [Coumadin] 2.5 mg PO HS@1800 02/22/19 02/27/19 Adalimumab [Humira] 80 mg SQ Q14D 02/27/19 02/27/19 Albuterol Inhaler [Ventolin Hfa 2 puff INHALATION RT-Q6H PRN 02/27/19 02/27/19 Inhaler] Brimonidine Tartrate/Timolol 1 drop RIGHT EYE BID 02/27/19 02/27/19 [Combigan 0.2%-0.5% Eye Drops] Ferrous Sulfate [Iron] 325 mg PO DAILY 02/27/19 02/27/19 Gabapentin [Neurontin] 200 mg PO DAILY 02/27/19 02/27/19 prednisoLONE ACETATE 1% OPHTH 1 drop RIGHT EYE QID 02/27/19 02/27/19 [Pred Forte 1%] Allergies Allergy/AdvReac Type Severity Reaction Status Date / Time phenobarbital Allergy rash & Verified 02/27/19 13:53 swells up Review of Systems ROS Statement: Those systems with pertinent positive or pertinent negative responses have been documented in the HPI. ROS Other: All systems not noted in ROS Statement are negative. Past Medical History Past Medical History: Asthma, Fibromyalgia, Hypertension, Osteoarthritis (OA), Rheumatoid Arthritis (RA), Sleep Apnea/CPAP/BIPAP, Vascular Disorder Additional Past Medical History / Comment(s): Obesity, aortic dissection involving the thoracic arch and descending aorta diagnosed back in October 2017 and has been stable since, severe obstructive sleep apnea with an AHI of 63 maintained on CPAP pressure of 10 cm of water, peripheral vascular disease, chronic anemia, history of left breast cysts, chronic back pain, History of Any Multi-Drug Resistant Organisms: None Reported Past Surgical History: Section, Cholecystectomy, Tubal Ligation Additional Past Surgical History / Comment(s): Colonoscopy Past Anesthesia/Blood Transfusion Reactions: No Reported Reaction Past Psychological History: Depression Smoking Status: Never smoker Past Alcohol Use History: None Reported Past Drug Use History: None Reported - Past Family History Father Family Medical History: Myocardial Infarction (CT) Additional Family Medical History / Comment(s): Father of a [place] at the age of 36 yrs. Mother Family Medical History: No Reported History Additional Family Medical History / Comment(s): Mother is healthy and 75 yrs old. General Exam - General Exam Comments Initial Comments: GENERAL: Patient is well-developed and well-nourished. Patient is nontoxic and well- hydrated and is in mild distress. ENT: Neck is soft and supple. No significant lymphadenopathy is noted. Oropharynx is clear. Moist mucous membranes. Neck has full range of motion without el iciting any pain. EYES: The sclera were anicteric and conjunctiva were pink and moist. Extraocular movements were intact and pupils were equal round and reactive to light. Eyelids were unremarkable. PULMONARY: Unlabored respirations. Good breath sounds bilaterally. No audible rales rhonchi or wheezing was noted. CARDIOVASCULAR: There is a regular rate and rhythm without any murmurs gallops or rubs. ABDOMEN: Patient has mild left lower quadrant abdominal pain. No palpable organomegaly was noted. There is no palpable pulsatile mass. SKIN: Skin is clear with no lesions or rashes and otherwise unremarkable. NEUROLOGIC: Patient is alert and oriented x3. Cranial nerves II through XII are grossly intact. Motor and sensory are also intact. Normal speech, volume and content. Symmetrical smile. MUSCULOSKELETAL: Normal extremities with adequate strength and full range of motion. No lower extremity swelling or edema. No calf tenderness. LYMPHATICS: No significant lymphadenopathy is noted PSYCHIATRIC: Normal psychiatric evaluation. Limitations: physical limitation Course Vital Signs 02/27/19 02/27/19 02/27/19 11:38 11:58 12:00 Temperature 98.1 F Pulse Rate 72 67 67 Respiratory 18 17 13 Rate Blood Pressure 75/47 85/48 O2 Sat by Pulse 99 97 97 Oximetry 02/27/19 02/27/19 02/27/19 12:15 12:30 12:45 Temperature Pulse Rate 71 67 Respiratory 20 18 16 Rate Blood Pressure 76/47 76/47 83/49 O2 Sat by Pulse 98 98 98 Oximetry 02/27/19 02/27/19 13:00 13:30 Temperature Pulse Rate 68 Respiratory 16 Rate Blood Pressure 102/71 102/60 O2 Sat by Pulse 98 Oximetry Medical Decision Making - Medical Decision Making EKG shows normal sinus rhythm at 62 bpm [place] interval 252 QRS is 72 QT interval 4:30 QTC is 436. Patient's EKG shows no ST segment elevation or depression. Computed tomography scan abdomen and pelvis shows probable bleeding around the left iliopsoas muscle and probable unfilled bladder. I spoke with Dr. Ritter he agreed to admit the patient I spoke with Dr. Olvera he agreed to be on consult. Spoke with Dr. Rader and he agreed to see the patient in the ICU. Patient received vitamin K and fresh frozen plasma. I will order CBCs every 6. I admitted the patient wrote admitting orders. - Lab Data Result diagrams: 02/27/19 12:15 02/27/19 12:15 Lab Results 02/27/19 02/27/19 02/27/19 Range/Units 12:10 12:15 12:15 WBC 14.2 H (3.8-10.6) k/uL RBC 2.73 L (3.80-5.40) m/uL Hgb 8.9 L D (11.4-16.0) gm/dL Hct 26.4 L (34.0-46.0) % MCV 96.8 (80.0-100.0) fL MCH 32.6 (25.0-35.0) pg MCHC 33.7 (31.0-37.0) g/dL RDW 14.1 (11.5-15.5) % Plt Count 213 (150-450) k/uL Neutrophils % 90 % Lymphocytes % 7 % Monocytes % 2 % Eosinophils % 0 % Basophils % 0 % Neutrophils # 12.8 H (1.3-7.7) k/uL Lymphocytes # 0.9 L (1.0-4.8) k/uL Monocytes # 0.3 (0-1.0) k/uL Eosinophils # 0.0 (0-0.7) k/uL Basophils # 0.0 (0-0.2) k/uL PT (9.0-12.0) sec INR (<1.2) APTT (22.0-30.0) sec Sodium 142 (137-145) mmol/L Potassium 4.3 (3.5-5.1) mmol/L Chloride 111 H (98-107) mmol/L Carbon Dioxide 26 (22-30) mmol/L Anion Gap 5 mmol/L BUN 27 H (7-17) mg/dL Creatinine 1.16 H (0.52-1.04) mg/dL Est GFR (CKD-EPI)AfAm 61 (>60 ml/min/1.73 sqM) Est GFR (CKD-EPI)NonAf 53 (>60 ml/min/1.73 sqM) Glucose 88 (74-99) mg/dL Plasma Lactic Acid [place] (0.7-2.0) mmol/L Calcium 8.9 (8.4-10.2) mg/dL Total Bilirubin 0.6 (0.2-1.3) mg/dL AST 27 (14-36) U/L ALT 36 (9-52) U/L Alkaline Phosphatase 53 (38-126) U/L Total Protein 5.9 L (6.3-8.2) g/dL Albumin 3.2 L (3.5-5.0) g/dL Urine Color Urine Appearance (Clear) Urine pH (5.0-8.0) Ur Specific [place] (1.001-1.035) Urine Protein (Negative) Urine Glucose (UA) (Negative) Urine Ketones (Negative) Urine Blood (Negative) Urine Nitrite (Negative) Urine Bilirubin (Negative) Urine Urobilinogen (<2.0) mg/dL Ur Leukocyte Esterase (Negative) Urine RBC (0-5) /hpf Urine WBC (0-5) /hpf Urine WBC Clumps (None) /hpf Ur Squamous Epith Cells (0-4) /hpf Urine Mucus (None) /hpf Blood Type Blood Type Confirm A Positive Blood Type Recheck Bld Type Recheck Status Antibody Screen Transfuse Plasma Spec Expiration Date 02/27/19 02/27/19 02/27/19 Range/Units 12:15 12:15 12:15 WBC (3.8-10.6) k/uL RBC (3.80-5.40) m/uL Hgb (11.4-16.0) gm/dL Hct (34.0-46.0) % MCV (80.0-100.0) fL MCH (25.0-35.0) pg MCHC (31.0-37.0) g/dL RDW (11.5-15.5) % Plt Count (150-450) k/uL Neutrophils % % Lymphocytes % % Monocytes % % Eosinophils % % Basophils % % Neutrophils # (1.3-7.7) k/uL Lymphocytes # (1.0-4.8) k/uL Monocytes # (0-1.0) k/uL Eosinophils # (0-0.7) k/uL Basophils # (0-0.2) k/uL PT 41.3 H (9.0-12.0) sec INR 4.3 H (<1.2) APTT 43.8 H (22.0-30.0) sec Sodium (137-145) mmol/L Potassium (3.5-5.1) mmol/L Chloride (98-107) mmol/L Carbon Dioxide (22-30) mmol/L Anion Gap mmol/L BUN (7-17) mg/dL Creatinine (0.52-1.04) mg/dL Est GFR (CKD-EPI)AfAm (>60 ml/min/1.73 sqM) Est GFR (CKD-EPI)NonAf (>60 ml/min/1.73 sqM) Glucose (74-99) mg/dL Plasma Lactic Acid [place] 1.5 (0.7-2.0) mmol/L Calcium (8.4-10.2) mg/dL Total Bilirubin (0.2-1.3) mg/dL AST (14-36) U/L ALT (9-52) U/L Alkaline Phosphatase (38-126) U/L Total Protein (6.3-8.2) g/dL Albumin (3.5-5.0) g/dL Urine Color Dark Brown Urine Appearance Turbid H (Clear) Urine pH 5.5 (5.0-8.0) Ur Specific [place] 1.042 H (1.001-1.035) Urine Protein 2+ H (Negative) Urine Glucose (UA) Negative (Negative) Urine Ketones Trace H (Negative) Urine Blood Large H (Negative) Urine Nitrite Negative (Negative) Urine Bilirubin Negative (Negative) Urine Urobilinogen 4.0 (<2.0) mg/dL Ur Leukocyte Esterase Small H (Negative) Urine RBC >182 H (0-5) /hpf Urine WBC 54 H (0-5) /hpf Urine WBC Clumps Few H (None) /hpf Ur Squamous Epith Cells 29 H (0-4) /hpf Urine Mucus Few H (None) /hpf Blood Type Blood Type Confirm Blood Type Recheck Bld Type Recheck Status Antibody Screen Transfuse Plasma Spec Expiration Date 02/27/19 02/27/19 Range/Units 12:15 14:14 WBC (3.8-10.6) k/uL RBC (3.80-5.40) m/uL Hgb (11.4-16.0) gm/dL Hct (34.0-46.0) % MCV (80.0-100.0) fL MCH (25.0-35.0) pg MCHC (31.0-37.0) g/dL RDW (11.5-15.5) % Plt Count (150-450) k/uL Neutrophils % % Lymphocytes % % Monocytes % % Eosinophils % % Basophils % % Neutrophils # (1.3-7.7) k/uL Lymphocytes # (1.0-4.8) k/uL Monocytes # (0-1.0) k/uL Eosinophils # (0-0.7) k/uL Basophils # (0-0.2) k/uL PT (9.0-12.0) sec INR (<1.2) APTT (22.0-30.0) sec Sodium (137-145) mmol/L Potassium (3.5-5.1) mmol/L Chloride (98-107) mmol/L Carbon Dioxide (22-30) mmol/L Anion Gap mmol/L BUN (7-17) mg/dL Creatinine (0.52-1.04) mg/dL Est GFR (CKD-EPI)AfAm (>60 ml/min/1.73 sqM) Est GFR (CKD-EPI)NonAf (>60 ml/min/1.73 sqM) Glucose (74-99) mg/dL Plasma Lactic Acid [place] (0.7-2.0) mmol/L Calcium (8.4-10.2) mg/dL Total Bilirubin (0.2-1.3) mg/dL AST (14-36) U/L ALT (9-52) U/L Alkaline Phosphatase (38-126) U/L Total Protein (6.3-8.2) g/dL Albumin (3.5-5.0) g/dL Urine Color Urine Appearance (Clear) Urine pH (5.0-8.0) Ur Specific [place] (1.001-1.035) Urine Protein (Negative) Urine Glucose (UA) (Negative) Urine Ketones (Negative) Urine Blood (Negative) Urine Nitrite (Negative) Urine Bilirubin (Negative) Urine Urobilinogen (<2.0) mg/dL Ur Leukocyte Esterase (Negative) Urine RBC (0-5) /hpf Urine WBC (0-5) /hpf Urine WBC Clumps (None) /hpf Ur Squamous Epith Cells (0-4) /hpf Urine Mucus (None) /hpf Blood Type A Positive Blood Type Confirm Blood Type Recheck No Previous Record Bld Type Recheck Status CABO Indicated Antibody Screen NEGATIVE Transfuse Plasma 02/27/2019 Spec Expiration Date 03/02/2019 - 4313 Critical Care Time Critical Care Time: Yes Total Critical Care Time: 35 Disposition Clinical Impression: Anemia, Intraperitoneal bleeding, Hematuria Disposition: ADMITTED IP TO THIS HOSP Referrals: Shana Schmidt DO [Primary Care Provider] - 1-2 days Time of Disposition: 14:58
[2019-02-27] MEDS: SODIUM CHLORIDE 0.9% 500 ML 500 ML IV SCH ×2 (12:23→13:35)
[2019-02-27 12:36] LABS: Basophils % (A) 0 %; Eosinophils % (A) 0 %; HCT 26.4 % (34.0-46.0); Lymphocytes # (A) 0.9 k/uL (1.0-4.8); Lymphocytes % (A) 7 %; MCH 32.6 pg (25.0-35.0); MCHC 33.7 g/dL (31.0-37.0); MCV 96.8 fL (80.0-100.0); Mean Platelet Volume 6.5; Monocytes # (A) 0.3 k/uL (0-1.0); Monocytes % (A) 2 %; Neutrophils # (A) 12.8 k/uL (1.3-7.7); Neutrophils % (A) 90 %; Platelet Count 213 k/uL (150-450); RBC 2.73 m/uL (3.80-5.40); RDW 14.1 % (11.5-15.5); WBC 14.2 k/uL (3.8-10.6)
[2019-02-27 12:38] LABS: HGB 8.9 gm/dL (11.4-16.0)
[2019-02-27 12:43] LABS: Appearance,Urine Turbid (Clear); Bilirubin,Urine Negative (Negative); Blood,Urine Large (Negative); Color,Urine Dark Brown; Glucose,Urine (UA) Negative (Negative); Ketones,Urine Trace (Negative); Leukocyte Esterase,Urine Small (Negative); Mucus,Urine Few /hpf; Nitrite,Urine Negative (Negative); PH, Urine 5.5 (5.0-8.0); Protein,Urine 2+ (Negative); RBC,Urine >182 /hpf (0-5); Specific Gravity,Urine 1.042 (1.001-1.035); Squamous Epithelial Cell,Urine 29 /hpf (0-4)
[2019-02-27 12:44] LABS: INR 4.3 (<1.2); Partial Thromboplastin Time 43.8 sec (22.0-30.0); Prothrombin Time 41.3 sec (9.0-12.0)
[2019-02-27 12:47] LABS: Albumin 3.2 g/dL (3.5-5.0); Calcium 8.9 mg/dL (8.4-10.2); Potassium 4.3 mmol/L (3.5-5.1); Total Bilirubin 0.6 mg/dL (0.2-1.3); Total Protein 5.9 g/dL (6.3-8.2)
[2019-02-27] MEDS ORDERED: PHYTONADIONE 10 MG in SODIUM CHLORIDE 0.9% 50 ML IVPB STA (14:14)
--- NOTE | 2019-02-27 14:17 | CT ---
EXAMINATION TYPE: CT abdomen pelvis w con DATE OF EXAM: 02/27/2019 REFERENCE: Previous study dated 07/14/2018 HISTORY: Abdominal pain HISTORY: Hematuria CT DLP: 2349.50 mGy Automated exposure control for dose reduction was used. TECHNIQUE: Helical acquisition through the abdomen and pelvis was obtained following the oral ingesti on of without Oral Contrast and following intravenous administration of 100 ml mL of Isovue 300. The data was reformatted in axial, coronal and sagittal projections. FINDINGS: There are small, bilateral pleural effusions. Visualized portions of the lungs are clear. There is no pericardial fluid. The heart is nonenlarged. Within the abdomen, the gallbladder is been removed. Liver and spleen are normal. Both adrenal glands are normal. Both kidneys demonstrate function and appear morphologically normal. Pancreas is unremarkable. There is a chronic dissection of the distal abdominal aorta beginning at the level of the renal arter ies is aneurysmal measuring 1.5 cm. There is stranding in the fat adjacent to the bladder and there is high density liquid adjacent to th is. The bladder is contracted and contains high density material which may represent blood. This stra nding extends up into the region of the right paracolic gutter. A second high density fluid collectio n measuring 5 x 7.3 cm is present adjacent to the left iliopsoas muscle. Again stranding extends into the paracolic gutter. The bladder is not seen distinctly from these masses and these masses at least in part may represent blood-filled bladder. The uterus is bulky. There is stranding adjacent to the left ovary but this may be due to the adjacen t fluid collection. The right ovary is not visualized with certainty. There is no significant diverticular change and there is no radiographic evidence of diverticulitis. The appendix is normal. Small bowel loops are normal. No free air is seen. There is a small amount of free fluid within the pelvis. There is a degenerative grade 1 spondylolisthesis of L4 and L5. There is a tiny periumbilical hernia present containing fat only with 5.4 mm mouth. IMPRESSION: 1. HIGH DENSITY FLUID POCKETS WITHIN THE PELVIS ADJACENT TO THE ILIOPSOAS MUSCLE ON THE LEFT. HIGH DE NSITY STRUCTURE SEEN IMMEDIATELY ADJACENT TO THIS MAY REPRESENT BLOOD-FILLED BLADDER. THERE IS STRAND ING IN THE ADJACENT FAT UP TO THE LEVEL OF THE PARACOLIC GUTTERS BILATERALLY. THERE IS A SMALL AMOUNT OF FREE FLUID WITHIN THE PELVIS. LARGEST FLUID COLLECTION MEASURES 5 CM. 2. BULKY UTERUS. 3. SMALL, BILATERAL PLEURAL EFFUSIONS. 4. CHRONIC AORTIC DISSECTION, UNCHANGED FROM PREVIOUS. 5. TINY UMBILICAL HERNIA CONTAINING FAT ONLY. THIS REPORT WAS PHONED TO DR. YO IN THE EMERGENCY ROOM AT THE TIME OF REPORTING.
[2019-02-27] MEDS ORDERED: NALOXONE 0.4 MG/ML 1 ML VIAL IV PRN (14:58)
[2019-02-27 16:14] LABS: Glucose,Whole Blood 121 mg/dL (75-99)
[2019-02-27] MEDS: SODIUM CHLORIDE 0.9% 1,000 ML IV SCH (16:51)
--- NOTE | 2019-02-27 16:52 | P.GSCN ---
History of Present Illness Consult date: 02/27/19 History of present illness: 58-year-old female with multiple medical comorbidities presents to the emergency department with complaints of lower abdominal and pelvic pain. She states that the pain started approximately 2 days ago and she believes she had a urinary tract infection. She has had urinary tract infections in the past. She states that she also noticed that she was beginning to urinate blood. She states that this varied between bright red or dark colored. She denies any change in bowel movements. She denies any nausea or vomiting. The patient is also noted to have a history of an aortic dissection. She states that this has been followed by vascular surgery with no plan for intervention. She states that she also has had pulmonary embolism in the past. Secondary to this, the patient is on Coumadin. On her presentation today, she is supratherapeutic with a INR level greater than 4. On presentation to the emergency department, the patient was noted to have hypotension. She has received 2 L of normal saline and has responded appropriately with current systolic blood pressures in the 120s. She also has received 1 unit of FFP. Currently, the patient states her abdominal pain has improved. She denies any additional pain at this time. CT of the abdomen and pelvis was performed with concern of a urinary bladder with intraluminal blood in a possibility of a blood filled fluid collection in the pelvis. She states that she has had a hysterectomy and cholecystectomy in the past. Review of Systems All systems: negative Past Medical History Past Medical History: Asthma, Fibromyalgia, Hypertension, Osteoarthritis (OA), Rheumatoid Arthritis (RA), Sleep Apnea/CPAP/BIPAP, Vascular Disorder Additional Past Medical History / Comment(s): Obesity, aortic dissection involving the thoracic arch and descending aorta diagnosed back in October 2017 and has been stable since, severe obstructive sleep apnea with an AHI of 63 maintained on CPAP pressure of 10 cm of water, peripheral vascular disease, chronic anemia, history of left breast cysts, chronic back pain, History of Any Multi-Drug Resistant Organisms: None Reported Past Surgical History: Section, Cholecystectomy, Tubal Ligation Additional Past Surgical History / Comment(s): Colonoscopy Past Anesthesia/Blood Transfusion Reactions: No Reported Reaction Past Psychological History: Depression Smoking Status: Never smoker Past Alcohol Use History: None Reported Past Drug Use History: None Reported - Past Family History Father Family Medical History: Myocardial Infarction ([place]) Additional Family Medical History / Comment(s): Father of a [place] at the age of 36 yrs. Mother Family Medical History: No Reported History Additional Family Medical History / Comment(s): Mother is healthy and 75 yrs old. Medications and Allergies Home Medications Medication Instructions Recorded Confirmed Type Folic Acid 1 mg PO DAILY 07/20/15 02/27/19 History Hydroxychloroquine Sulfate 200 mg PO BID 07/20/15 02/27/19 History [Plaquenil] Ipratropium Pioneer [Atrovent Hfa] 2 puff INHALATION RT-QID PRN 11/12/17 02/27/19 History Ranitidine HCl [Zantac] 150 mg PO BID 11/12/17 02/27/19 History Methotrexate 50mg/2ml 25 mg IM MO 07/14/18 02/27/19 History Metoprolol Tartrate [Lopressor] 50 mg PO BID 07/14/18 02/27/19 History Oxybutynin Chloride [Ditropan] 5 mg PO DAILY 07/14/18 02/27/19 History predniSONE See Taper PO DIRECTED 07/14/18 02/27/19 History Atorvastatin [Lipitor] 20 mg PO DAILY 02/22/19 02/27/19 History Cephalexin [Keflex] 500 mg PO Q8HR 02/22/19 02/27/19 History DULoxetine HCL [Cymbalta] 30 mg PO DAILY 02/22/19 02/27/19 History Lisinopril [Zestril] 10 mg PO DAILY 02/22/19 02/27/19 History QUEtiapine FUMARATE [SEROquel] 300 mg PO HS 02/22/19 02/27/19 History Warfarin [Coumadin] 2.5 mg PO HS@1800 02/22/19 02/27/19 History Adalimumab [Humira] 80 mg SQ Q14D 02/27/19 02/27/19 History Albuterol Inhaler [Ventolin Hfa 2 puff INHALATION RT-Q6H PRN 02/27/19 02/27/19 History Inhaler] Brimonidine Tartrate/Timolol 1 drop RIGHT EYE BID 02/27/19 02/27/19 History [Combigan 0.2%-0.5% Eye Drops] Ferrous Sulfate [Iron] 325 mg PO DAILY 02/27/19 02/27/19 History Gabapentin [Neurontin] 200 mg PO DAILY 02/27/19 02/27/19 History prednisoLONE ACETATE 1% OPHTH 1 drop RIGHT EYE QID 02/27/19 02/27/19 History [Pred Forte 1%] Allergies Allergy/AdvReac Type Severity Reaction Status Date / Time phenobarbital Allergy rash & Verified 02/27/19 13:53 swells up Surgical - Exam Osteopathic Statement: *. No significant issues noted on an osteopathic s tructural exam other than those noted in the History and Physical/Consult. Vital Signs Temp Pulse Resp BP Pulse Ox 98.1 F 72 18 75/47 99 02/27/19 11:38 02/27/19 11:38 02/27/19 11:38 02/27/19 11:38 02/27/19 11:38 - General well nourished, no distress - Eyes PERRL - ENT no hearing loss - Neck trachea midline - Respiratory No difficulty with respiration - Abdomen Soft, nontender, nondistended, no rebound, no guarding - Psychiatric oriented to time, oriented to person, oriented to place Results - Labs 02/27/19 12:15 02/27/19 12:15 Abnormal Lab Results - Last 24 Hours (Table) 02/27/19 02/27/19 02/27/19 Range/Units 12:15 12:15 12:15 WBC 14.2 H (3.8-10.6) k/uL RBC 2.73 L (3.80-5.40) m/uL Hgb 8.9 L D (11.4-16.0) gm/dL Hct 26.4 L (34.0-46.0) % Neutrophils # 12.8 H (1.3-7.7) k/uL Lymphocytes # 0.9 L (1.0-4.8) k/uL PT 41.3 H (9.0-12.0) sec INR 4.3 H (<1.2) APTT 43.8 H (22.0-30.0) sec Chloride 111 H (98-107) mmol/L BUN 27 H (7-17) mg/dL Creatinine 1.16 H (0.52-1.04) mg/dL POC Glucose (mg/dL) (75-99) mg/dL Total Protein 5.9 L (6.3-8.2) g/dL Albumin 3.2 L (3.5-5.0) g/dL Urine Appearance (Clear) Ur Specific [place] (1.001-1.035) Urine Protein (Negative) Urine Ketones (Negative) Urine Blood (Negative) Ur Leukocyte Esterase (Negative) Urine RBC (0-5) /hpf Urine WBC (0-5) /hpf Urine WBC Clumps (None) /hpf Ur Squamous Epith Cells (0-4) /hpf Urine Mucus (None) /hpf 02/27/19 02/27/19 Range/Units 12:15 16:13 WBC (3.8-10.6) k/uL RBC (3.80-5.40) m/uL Hgb (11.4-16.0) gm/dL Hct (34.0-46.0) % Neutrophils # (1.3-7.7) k/uL Lymphocytes # (1.0-4.8) k/uL PT (9.0-12.0) sec INR (<1.2) APTT (22.0-30.0) sec Chloride (98-107) mmol/L BUN (7-17) mg/dL Creatinine (0.52-1.04) mg/dL POC Glucose (mg/dL) 121 H (75-99) mg/dL Total Protein (6.3-8.2) g/dL Albumin (3.5-5.0) g/dL Urine Appearance Turbid H (Clear) Ur Specific [place] 1.042 H (1.001-1.035) Urine Protein 2+ H (Negative) Urine Ketones Trace H (Negative) Urine Blood Large H (Negative) Ur Leukocyte Esterase Small H (Negative) Urine RBC >182 H (0-5) /hpf Urine WBC 54 H (0-5) /hpf Urine WBC Clumps Few H (None) /hpf Ur Squamous Epith Cells 29 H (0-4) /hpf Urine Mucus Few H (None) /hpf Microbiology - Last 24 Hours (Table) 02/27/19 12:15 Urine Culture - Preliminary Urine,Voided Diabetes panel 02/27/19 Range/Units 12:15 Sodium 142 (137-145) mmol/L Potassium 4.3 (3.5-5.1) mmol/L Chloride 111 H (98-107) mmol/L Carbon Dioxide 26 (22-30) mmol/L BUN 27 H (7-17) mg/dL Creatinine 1.16 H (0.52-1.04) mg/dL Glucose 88 (74-99) mg/dL Calcium 8.9 (8.4-10.2) mg/dL AST 27 (14-36) U/L ALT 36 (9-52) U/L Alkaline Phosphatase 53 (38-126) U/L Total Protein 5.9 L (6.3-8.2) g/dL Albumin 3.2 L (3.5-5.0) g/dL Calcium panel 02/27/19 Range/Units 12:15 Calcium 8.9 (8.4-10.2) mg/dL Albumin 3.2 L (3.5-5.0) g/dL Pituitary panel 02/27/19 Range/Units 12:15 Sodium 142 (137-145) mmol/L Potassium 4.3 (3.5-5.1) mmol/L Chloride 111 H (98-107) mmol/L Carbon Dioxide 26 (22-30) mmol/L BUN 27 H (7-17) mg/dL Creatinine 1.16 H (0.52-1.04) mg/dL Glucose 88 (74-99) mg/dL Calcium 8.9 (8.4-10.2) mg/dL Adrenal panel 02/27/19 Range/Units 12:15 Sodium 142 (137-145) mmol/L Potassium 4.3 (3.5-5.1) mmol/L Chloride 111 H (98-107) mmol/L Carbon Dioxide 26 (22-30) mmol/L BUN 27 H (7-17) mg/dL Creatinine 1.16 H (0.52-1.04) mg/dL Glucose 88 (74-99) mg/dL Calcium 8.9 (8.4-10.2) mg/dL Total Bilirubin 0.6 (0.2-1.3) mg/dL AST 27 (14-36) U/L ALT 36 (9-52) U/L Alkaline Phosphatase 53 (38-126) U/L Total Protein 5.9 L (6.3-8.2) g/dL Albumin 3.2 L (3.5-5.0) g/dL Assessment and Plan (1) Elevated INR Narrative/Plan: 58-year-old female with hematuria and intra-abdominal fluid collection, possibility of intra-abdominal bleeding - The patient is noted to have a supratherapeutic INR. She has received 1 unit of FFP and will be receiving vitamin K. - Hemoglobin on arrival was 8.9. We will obtain repeat hemoglobin and every 6h hemoglobin checks. - I would continue with supportive measures and anti-coagulation reversal to prevent any further bleeding. The fluid collections in the pelvis could be old blood. She has stabilized with the current regimen and does not appear to be actively bleeding. We will continue to closely monitor for any acute clinical changes that may require any emergent procedure. With any active bleeding, I would also consider angioembolization. - I recommend a vascular surgery consultation due to the aortic dissection, this is a chronic finding - Urology consultation for evaluation of hematuria - Continue ICU management - I will continue to follow closely and provide accommodations based on the patient's clinical progress. Current Visit: No Status: Acute Code(s): R79.1 - ABNORMAL COAGULATION PROFILE SNOMED Code(s): 715896239
[2019-02-27] MEDS ORDERED: IPRATROPIUM-ALBUTEROL 3 ML NEB INHALATION PRN (17:41)
[2019-02-27] MEDS ORDERED: ALBUTEROL INHALER 60 PUFF/8 GM INHALER INHALATION PRN (17:41)
[2019-02-27] MEDS ORDERED: ALPRAZolam 0.25 MG TAB PO PRN (17:43)
[2019-02-27] MEDS ORDERED: HYDROcodone/APAP 5-325MG 1 EACH TAB PO PRN (17:43)
--- NOTE | 2019-02-27 18:19 | HP ---
HISTORY AND PHYSICAL I am covering for Dr. Croft. DATE OF SERVICE: 02/27/2019 CHIEF COMPLAINT: Abdominal pain. HISTORY OF PRESENT ILLNESS: This 58-year-old woman with a past medical history of multiple medical problems including history of asthma, fibromyalgia, hypertension, DJD, rheumatoid arthritis, vascular disorder, history of aortic dissection involving the thoracic and descending aorta being followed by [facility], history of sleep apnea, history of section, history of depression, being followed by Dr. Shana Schmidt in the outpatient setting is complaining of lower abdominal pain for the last couple days. The pain is mostly in the hypogastrium and as well as left lower quadrant. The patient also has some urinary difficulties. The patient also noted some blood on wiping after going to toilet according to her and the patient came to [facility] for further evaluation and treatment. In the ER, the white count elevated to 14.2, hemoglobin is 8.9, and INR was 4.3 and creatinine is 1.16 and urine was turbid with 2+ protein and ketones and blood and as well as significant WBC clumps and RBCs also. The patient was admitted for further evaluation and treatment. A CT scan of the abdomen done in the emergency room showed evidence of multiple findings including high- density fluid pockets within the pelvis adjacent to the iliopsoas muscle on the left and high- density structure seen immediately adjacent to this may represent blood-filled bladder. The strands in the pericolic gutter were also noted with bulky uterus. Small bilateral pleural effusion and chronic aortic dissection unchanged from the previous one. There is a tiny umbilical hernia was also noted. The patient admitted to ICU at this time. Also the hemoglobin dropped from 11.6 on 02/22/2019 to be 8.9 on 02/27/2019. There is no history of fever, rigors or chills. No history of headache, loss of consciousness or seizures. Patient had relative hypotension on admission. PAST MEDICAL HISTORY: Past medical history of asthma, fibromyalgia, hypertension, DJD, rheumatoid arthritis, obesity, section, depression. Also past medical history of acute pulmonary embolism. MEDICATIONS: Prior to admission include home medications are: 1. Coumadin 2.5 mg q.h.s. 2. Seroquel 300 mg q.h.s. 3. Atrovent q.i.d. 4. Albuterol p.r.n. 5. Pred Forte ophthalmic drops. 6. Combigan ophthalmologic eye drops. 7. Iron sulfate. 8. Humira 80 mg subcu q 14 days. 9. Methotrexate 25 mg IM monthly. 10.Neurontin 200 mg p.o. daily. 11.Prednisone. 12.Zantac 150 mg p.o. b.i.d. 13.Ditropan 5 mg p.o. daily. 14.Lopressor 50 mg p.o. b.i.d. 15.Zestril 10 mg p.o. daily. 16.Plaquenil 200 mg p.o. b.i.d. 17.Folic acid 1 mg daily. 18.Cymbalta 30 mg p.o. daily. 19.Keflex 500 mg p.o. q.h.s. 20.Lipitor 20 mg p.o. daily. ALLERGIES: ntd FAMILY HISTORY: History of myocardial infarction in the family. SOCIAL HISTORY: No history of smoking. No history of alcohol intake. REVIEW OF SYSTEMS: ENT: No diminished vision. No diminished hearing. CARDIOVASCULAR system as mentioned earlier. There is no angina or palpitations. Respiration: No cough or hemoptysis. GI as mentioned earlier. : As mentioned earlier. NERVOUS SYSTEM: No numbness or weakness. ALLERGY/IMMUNOLOGY: No asthma or hayfever. MUSCULOSKELETAL as mentioned earlier. HEMATOLOGY/ONCOLOGY: No history of anemia. ENDOCRINE: No history of diabetes or hypothyroidism. CONSTITUTIONAL: As mentioned earlier. Dermatology: Negative. Rheumatology: Negative. Psychiatry: As mentioned earlier. PHYSICAL EXAMINATION: Alert and oriented times three. Pulse is 69. Blood pressure 120/60, respirations 34, temperature 97.9, pulse ox 98% on room air. HEENT are conjunctivae normal. Oral mucosa moist. NECK is no jugular venous distention. No carotid bruit. No lymph node enlargement. Cardiovascular system: S1, S2 muffled. No S3, no S4. RESPIRATORY: Breath sounds diminished in the bases. No rhonchi. No crackles. ABDOMEN: Soft, obese. Mild diffuse discomfort on palpation. No guarding. No rigidity. No mass palpable. No rebound tenderness. Bowel sounds present. No ascites. LEGS: No edema. No swelling. NERVOUS SYSTEM: Higher functions as mentioned earlier. Moves all four limbs. No focal deficits. LYMPHATICS: No lymph nodes palpable in the neck, axillae or groin. SKIN: Significant bruise on the left upper arm present. Otherwise joints no active deforming arthropathy. LABS: At this time shows WBC 14.2, hemoglobin is 8.9, INR is 4.3, and creatinine is 1.16. ASSESSMENT: 1. Acute intrapelvic hematoma, possibly iliopsoas hematoma with acute blood loss anemia. 2. Hematuria, rule out bladder thrombus. 3. Coumadin coagulopathy. 4. Increased WBC. 5. Possible acute urinary tract infection present on admission. 6. Anemia secondary to blood loss as mentioned earlier. 7. Increased creatinine with possible acute mild acute renal failure, acute tubular necrosis present on admission. 8. Multiple bruises. 9. History of asthma. 10.Fibromyalgia. 11.Hypertension. 12.Degenerative joint disease. 13.History of rheumatoid arthritis. 14.Sleep apnea. 15.History of aortic dissection with thoracic and descending aorta stable. 16.Severe obstructive sleep apnea on CPAP. 17.Peripheral vascular disease. 18.History of left breast cyst. 19.Chronic low back pain, degenerative joint disease. 20.History of section. 21.History of depression. 22.Obesity with body mass index of 36.6. RECOMMENDATIONS AND DISCUSSION: In this 58-year-old woman who presented with multiple medical issues, at this time, I recommend to continue the current medications, management and symptomatic treatment. We will monitor hemoglobin closely. The patient already received fresh frozen plasma and vitamin K from the ER. Monitor PT/INR closely. Otherwise, I would also recommend empiric antibiotics for UTI. Obtain cultures. Urology has been consulted. Dr. Olvera from Surgery has evaluated the patient for any further evaluation and to ensure stability. Otherwise, we will continue to monitor. Overall prognosis guarded because of multiple complex medical issues. Further recommendations to follow. A copy of dictation forwarded to Dr. Schmidt who is the primary physician. We will recommend vascular surgery consultation also. Once again the prognosis is extremely guarded because of multiple complex medical issues. Further recommendations to follow. MMODL / IJN: [id number] / MTDD
[2019-02-27 18:32] VITALS: BMI 37.8
--- NOTE | 2019-02-27 18:34 | XR ---
EXAMINATION TYPE: XR chest 1V portable DATE OF EXAM: 02/27/2019 COMPARISON: 11/12/2017 HISTORY: Hematuria TECHNIQUE: Single frontal view of the chest is obtained. FINDINGS: There is no heart failure nor confluent pneumonic infiltrate. Costophrenic angles are evelia r. There is slight elevated right diaphragm. There are chest leads. IMPRESSION: Slight elevated right diaphragm. Otherwise negative exam.
[2019-02-27] MEDS: PANTOPRAZOLE 40 MG/10 ML VIAL IVP SCH (18:59)
[2019-02-27] MEDS: prednisoLONE ACETATE 1% OPHTH DROPS 5 ML BTL RIGHT EYE SCH ×2 (18:59→21:09)
--- NOTE | 2019-02-27 19:00 | CT ---
EXAMINATION TYPE: CT pelvis wo con DATE OF EXAM: 02/27/2019 COMPARISON: Today HISTORY: Possible bladder perforation. Retrograde cystogram. CT DLP: 2147 mGycm Automated exposure control for dose reduction was used. FINDINGS: Multiple axial sections were obtained from the iliac crest to the floor the pelvis. There is Arzate ca theter in the urinary bladder. There is contrast in the urinary bladder. Urinary bladder is displaced to the right side and bladder appears intact. There is a large high dens ity mass in the pelvis that measures 9 cm in maximum dimension displacing the urinary bladder. Uterus is anteverted. Uterus also displaced slightly to the right side. There is some fat stranding in the left adnexal region extending into the left side retroperitoneal paracolic region. IMPRESSION: LARGE HIGH DENSITY MASS IN THE PELVIS ON THE LEFT SIDE WITH FAT STRANDING CONSISTENT WITH RETROPERITO AISHA HEMATOMA UNCHANGED COMPARED TO CT SCAN EARLIER TODAY. NO EVIDENCE OF BLADDER PERFORATION. NO DEF INITE BLADDER MASS SEEN.
[2019-02-27 19:04] LABS: Basophils % (A) 0 %; Eosinophils % (A) 0 %; HCT 31.5 % (34.0-46.0); HGB 9.8 gm/dL (11.4-16.0); Hypochromasia Marked; Lymphocytes # (A) 0.9 k/uL (1.0-4.8); Lymphocytes % (A) 7 %; MCH 32.4 pg (25.0-35.0); MCHC 31.1 g/dL (31.0-37.0); Macrocytosis Slight; Mean Platelet Volume 6.7; Monocytes # (A) 0.4 k/uL (0-1.0); Monocytes % (A) 4 %; Neutrophils # (A) 10.5 k/uL (1.3-7.7); Neutrophils % (A) 88 %; Platelet Count 206 k/uL (150-450); RBC 3.03 m/uL (3.80-5.40); RDW 13.9 % (11.5-15.5)
[2019-02-27] MEDS: QUEtiapine 100 MG TAB PO SCH (20:37)
[2019-02-27] MEDS: HYDROXYCHLOROQUINE SULFATE 200 MG TAB PO SCH (20:37)
[2019-02-27] MEDS ORDERED: TEMAZEPAM 15 MG CAP PO PRN (21:00)
[2019-02-28 00:41] LABS: HCT 25.7 % (34.0-46.0); HGB 8.3 gm/dL (11.4-16.0); Hypochromasia Slight; MCH 32.3 pg (25.0-35.0); MCHC 32.1 g/dL (31.0-37.0); MCV 100.5 fL (80.0-100.0); Macrocytosis Slight; Mean Platelet Volume 6.5; Platelet Count 184 k/uL (150-450); RBC 2.56 m/uL (3.80-5.40); RDW 14.2 % (11.5-15.5); WBC 11.7 k/uL (3.8-10.6)
[2019-02-28 00:47] LABS: INR 1.4 (<1.2)
[2019-02-28] MEDS: DORZOLAMIDE-TIMOLOL 2.23%/0.68 10ML BTL RIGHT EYE SCH ×3 (00:47→20:30)
[2019-02-28 05:51] LABS: Basophils % (A) 0 %; Eosinophils # (A) 0.1 k/uL (0-0.7); Eosinophils % (A) 1 %; HCT 24.5 % (34.0-46.0); Lymphocytes % (A) 20 %; MCH 32.1 pg (25.0-35.0); MCHC 32.6 g/dL (31.0-37.0); MCV 98.6 fL (80.0-100.0); Mean Platelet Volume 6.5; Monocytes # (A) 0.4 k/uL (0-1.0); Monocytes % (A) 4 %; Neutrophils # (A) 7.7 k/uL (1.3-7.7); Neutrophils % (A) 74 %; Platelet Count 177 k/uL (150-450); RBC 2.49 m/uL (3.80-5.40); RDW 14.4 % (11.5-15.5); WBC 10.3 k/uL (3.8-10.6)
[2019-02-28 05:52] LABS: INR 1.2 (<1.2); Prothrombin Time 12.3 sec (9.0-12.0)
[2019-02-28 06:28] LABS: African American GFR (CKD) >90 (>60 ml/min/1.73 sqM); Anion Gap 5 mmol/L; Blood Urea Nitrogen 18 mg/dL (7-17); Calcium 8.6 mg/dL (8.4-10.2); Carbon Dioxide 25 mmol/L (22-30); Chloride 112 mmol/L (98-107); Glucose 87 mg/dL (74-99); Potassium 4.2 mmol/L (3.5-5.1); Sodium 142 mmol/L (137-145)
--- NOTE | 2019-02-28 08:20 | P.PN ---
Subjective Progress Note Date: 02/28/19 Patient seen and examined at bedside. States she is feeling much better. Urology evaluation was performed with CT cysto. There was no evidence of bladder perforation. Patient's hemoglobin was followed overnight and is currently at 8.0. INR has decreased to 1.2. Objective - Vital Signs Vital signs: Vital Signs Temp 98.3 F 02/28/19 04:00 Pulse 70 02/28/19 07:00 Resp 17 02/28/19 07:00 BP 156/93 02/28/19 07:00 Pulse Ox 99 02/28/19 07:00 Intake & Output 02/27/19 02/28/19 02/28/19 18:59 06:59 18:59 Intake Total 430 650 Output Total 640 1170 Balance -210 -520 Weight 106.141 kg 109 kg Intake: IV 100 650 .9 100 650 Blood Product 330 Ffp 24 Cpd Unit 330 [id number] Output: Urine 640 1170 Other: Voiding Method Bedpan Indwelling Catheter # Voids 1 - Constitutional General appearance: Present: cooperative, no acute distress - EENT Eyes: Present: PERRLA - Respiratory Details: No difficulty with respiration - Gastrointestinal Gastrointestinal Comment(s): Soft, nontender, nondistended, no rebound, no guarding - Musculoskeletal Musculoskeletal: Present: generalized weakness - Psychiatric Psychiatric: Present: A&O x's 3 - Labs CBC & Chem 7: 02/28/19 05:25 02/28/19 05:25 Labs: Abnormal Lab Results - Last 24 Hours (Table) 02/27/19 02/27/19 02/27/19 Range/Units 12:15 12:15 12:15 WBC 14.2 H (3.8-10.6) k/uL RBC 2.73 L (3.80-5.40) m/uL Hgb 8.9 L D (11.4-16.0) gm/dL Hct 26.4 L (34.0-46.0) % MCV (80.0-100.0) fL Neutrophils # 12.8 H (1.3-7.7) k/uL Lymphocytes # 0.9 L (1.0-4.8) k/uL PT 41.3 H (9.0-12.0) sec INR 4.3 H (<1.2) APTT 43.8 H (22.0-30.0) sec Chloride 111 H (98-107) mmol/L BUN 27 H (7-17) mg/dL Creatinine 1.16 H (0.52-1.04) mg/dL POC Glucose (mg/dL) (75-99) mg/dL Total Protein 5.9 L (6.3-8.2) g/dL Albumin 3.2 L (3.5-5.0) g/dL Urine Appearance (Clear) Ur Specific [place] (1.001-1.035) Urine Protein (Negative) Urine Ketones (Negative) Urine Blood (Negative) Ur Leukocyte Esterase (Negative) Urine RBC (0-5) /hpf Urine WBC (0-5) /hpf Urine WBC Clumps (None) /hpf Ur Squamous Epith Cells (0-4) /hpf Urine Mucus (None) /hpf 02/27/19 02/27/19 02/27/19 Range/Units 12:15 16:13 18:35 WBC 12.0 H (3.8-10.6) k/uL RBC 3.03 L (3.80-5.40) m/uL Hgb 9.8 L (11.4-16.0) gm/dL Hct 31.5 L (34.0-46.0) % MCV 104.0 H D (80.0-100.0) fL Neutrophils # 10.5 H (1.3-7.7) k/uL Lymphocytes # 0.9 L (1.0-4.8) k/uL PT (9.0-12.0) sec INR (<1.2) APTT (22.0-30.0) sec Chloride (98-107) mmol/L BUN (7-17) mg/dL Creatinine (0.52-1.04) mg/dL POC Glucose (mg/dL) 121 H (75-99) mg/dL Total Protein (6.3-8.2) g/dL Albumin (3.5-5.0) g/dL Urine Appearance Turbid H (Clear) Ur Specific [place] 1.042 H (1.001-1.035) Urine Protein 2+ H (Negative) Urine Ketones Trace H (Negative) Urine Blood Large H (Negative) Ur Leukocyte Esterase Small H (Negative) Urine RBC >182 H (0-5) /hpf Urine WBC 54 H (0-5) /hpf Urine WBC Clumps Few H (None) /hpf Ur Squamous Epith Cells 29 H (0-4) /hpf Urine Mucus Few H (None) /hpf 02/28/19 02/28/19 02/28/19 Range/Units 00:16 00:16 05:25 WBC 11.7 H (3.8-10.6) k/uL RBC 2.56 L 2.49 L (3.80-5.40) m/uL Hgb 8.3 L D 8.0 L (11.4-16.0) gm/dL Hct 25.7 L 24.5 L (34.0-46.0) % MCV 100.5 H (80.0-100.0) fL Neutrophils # (1.3-7.7) k/uL Lymphocytes # (1.0-4.8) k/uL PT 14.0 H (9.0-12.0) sec INR 1.4 H (<1.2) APTT (22.0-30.0) sec Chloride (98-107) mmol/L BUN (7-17) mg/dL Creatinine (0.52-1.04) mg/dL POC Glucose (mg/dL) (75-99) mg/dL Total Protein (6.3-8.2) g/dL Albumin (3.5-5.0) g/dL Urine Appearance (Clear) Ur Specific [place] (1.001-1.035) Urine Protein (Negative) Urine Ketones (Negative) Urine Blood (Negative) Ur Leukocyte Esterase (Negative) Urine RBC (0-5) /hpf Urine WBC (0-5) /hpf Urine WBC Clumps (None) /hpf Ur Squamous Epith Cells (0-4) /hpf Urine Mucus (None) /hpf 02/28/19 02/28/19 Range/Units 05:25 05:25 WBC (3.8-10.6) k/uL RBC (3.80-5.40) m/uL Hgb (11.4-16.0) gm/dL Hct (34.0-46.0) % MCV (80.0-100.0) fL Neutrophils # (1.3-7.7) k/uL Lymphocytes # (1.0-4.8) k/uL PT 12.3 H (9.0-12.0) sec INR 1.2 H (<1.2) APTT (22.0-30.0) sec Chloride 112 H (98-107) mmol/L BUN 18 H (7-17) mg/dL Creatinine (0.52-1.04) mg/dL POC Glucose (mg/dL) (75-99) mg/dL Total Protein (6.3-8.2) g/dL Albumin (3.5-5.0) g/dL Urine Appearance (Clear) Ur Specific [place] (1.001-1.035) Urine Protein (Negative) Urine Ketones (Negative) Urine Blood (Negative) Ur Leukocyte Esterase (Negative) Urine RBC (0-5) /hpf Urine WBC (0-5) /hpf Urine WBC Clumps (None) /hpf Ur Squamous Epith Cells (0-4) /hpf Urine Mucus (None) /hpf Microbiology - Last 24 Hours (Table) 02/27/19 12:15 Urine Culture - Preliminary Urine,Voided Assessment and Plan (1) Retroperitoneal bleed Narrative/Plan: 58-year-old female with hematuria and retroperitoneal hematoma - The patient is noted to have a supratherapeutic INR on admission, this is corrected to 1.2 after FFP and vitamin K administration - Hemoglobin currently is 8.0. We will obtain q8h hemoglobin checks to evaluate for any further active bleeding. - I would continue with supportive measures and anti-coagulation reversal to prevent any further bleeding. CT cystoscopy was performed and there does not appear to be any bladder mass or bladder perforation. The fluid collections in the pelvis does not appear to be increasing in size and appears to be a retroperitoneal hematoma. She has stabilized with the current regimen and does not appear to be actively bleeding. We will continue to closely monitor for any acute clinical changes that may require any emergent procedure. With any active bleeding, I would also consider angioembolization. - I recommend a vascular surgery consultation due to the aortic dissection, this is a chronic finding - Urology consultation for evaluation of hematuria - Continue ICU management - I will continue to follow closely and provide accommodations based on the law ent's clinical progress. Current Visit: Yes Status: Acute Code(s): R58 - HEMORRHAGE, NOT ELSEWHERE CLASSIFIED SNOMED Code(s): 45032580
[2019-02-28] MEDS: PANTOPRAZOLE 40 MG/10 ML VIAL IVP SCH (08:25)
[2019-02-28] MEDS: FOLIC ACID 1 MG TAB PO SCH (08:25)
[2019-02-28] MEDS: ATORVASTATIN 20 MG TAB PO SCH (08:25)
[2019-02-28] MEDS: prednisoLONE ACETATE 1% OPHTH DROPS 5 ML BTL RIGHT EYE SCH ×4 (08:25→21:41)
[2019-02-28] MEDS: GABAPENTIN 100 MG CAP PO SCH (08:26)
[2019-02-28] MEDS: DULoxetine HCL 30 MG CAPSULE.DR PO SCH (08:26)
[2019-02-28] MEDS: HYDROXYCHLOROQUINE SULFATE 200 MG TAB PO SCH ×2 (08:27→20:30)
[2019-02-28] MEDS: ACETAMINOPHEN TAB 325 MG TAB PO PRN ×2 (11:46→18:42)
--- NOTE | 2019-02-28 12:38 | P.GSCN ---
History of Present Illness Consult date: 02/28/19 Reason for Consult: Gross Hematuria, R/O Bladder perforation History of present illness: Ms. Salamanca is a 58-year-old female with multiple medical problem she presented to the ED with chief complaints of lower abdominal and pelvic pain. She also has been complaining of gross hematuria. She indicated she was recently diagnosed with a UTI. Denies any previous episodes of gross hematuria. She is on anticogulation due to pulmonary embolism in the past. On presentation patient had supratherapeutic with a INR level greater than 4. She initially underwent a CT of the abdomen and pelvis was performed with concern of a bladder perforation and hematoma vs fluid collection in the reteroperitoneum. She subsequently underwent CT cystogram which showed bladder to be intact, of note on review of imaging there appeared to be irregularity along the left lateral bladder wall. Since admission she has been hemodynamically stable and her hematuria has resolved Review of Systems - Constitutional Denies chills, Denies fever - EENT Ears, nose, mouth and throat: Denies dysphagia, Denies headache - Cardiovascular Denies chest pain, Denies leg edema - Respiratory Denies cough, Denies dyspnea - Gastrointestinal Denies nausea, Denies vomiting - Genitourinary Genitourinary: Reports hematuria, Denies flank pain, Denies kidney stones - Neurological Denies seizures, Denies weakness - Psychiatric Denies confusion, Denies disorientation Past Medical History Past Medical History: Asthma, Deep Vein Thrombosis (DVT), Fibromyalgia, Hypertension, Osteoarthritis (OA), Pulmonary Embolus (PE), Rheumatoid Arthritis (RA), Sleep Apnea/CPAP/BIPAP, Vascular Disorder Additional Past Medical History / Comment(s): Obesity, aortic dissection involving the thoracic arch and descending aorta diagnosed back in October 2017 and has been stable since, severe obstructive sleep apnea with an AHI of 63 maintained on CPAP pressure of 10 cm of water, peripheral vascular disease, chronic anemia, history of left breast cysts, chronic back pain, History of Any Multi-Drug Resistant Organisms: None Reported Past Surgical History: Section, Cholecystectomy, Tubal Ligation Additional Past Surgical History / Comment(s): Colonoscopy Past Anesthesia/Blood Transfusion Reactions: No Reported Reaction Smoking Status: Never smoker - Past Family History Father Family Medical History: Myocardial Infarction (AL), Renal Disease Additional Family Medical History / Comment(s): Father of a AL at the age of 36 yrs. Mother Family Medical History: No Reported History Additional Family Medical History / Comment(s): Mother is healthy and 75 yrs old. Medications and Allergies Home Medications Medication Instructions Recorded Confirmed Type Folic Acid 1 mg PO DAILY 07/20/15 02/27/19 History Hydroxychloroquine Sulfate 200 mg PO BID 07/20/15 02/27/19 History [Plaquenil] Ipratropium [place] [Atrovent Hfa] 2 puff INHALATION RT-QID PRN 11/12/17 02/27/19 History Ranitidine HCl [Zantac] 150 mg PO BID 11/12/17 02/27/19 History Methotrexate 50mg/2ml 25 mg IM MO 07/14/18 02/27/19 History Metoprolol Tartrate [Lopressor] 50 mg PO BID 07/14/18 02/27/19 History Oxybutynin Chloride [Ditropan] 5 mg PO DAILY 07/14/18 02/27/19 History predniSONE See Taper PO DIRECTED 07/14/18 02/27/19 History Atorvastatin [Lipitor] 20 mg PO DAILY 02/22/19 02/27/19 History Cephalexin [Keflex] 500 mg PO Q8HR 02/22/19 02/27/19 History DULoxetine HCL [Cymbalta] 30 mg PO DAILY 02/22/19 02/27/19 History Lisinopril [Zestril] 10 mg PO DAILY 02/22/19 02/27/19 History QUEtiapine FUMARATE [SEROquel] 300 mg PO HS 02/22/19 02/27/19 History Warfarin [Coumadin] 2.5 mg PO HS@1800 02/22/19 02/27/19 History Adalimumab [Humira] 80 mg SQ Q14D 02/27/19 02/27/19 History Albuterol Inhaler [Ventolin Hfa 2 puff INHALATION RT-Q6H PRN 02/27/19 02/27/19 History Inhaler] Brimonidine Tartrate/Timolol 1 drop RIGHT EYE BID 02/27/19 02/27/19 History [Combigan 0.2%-0.5% Eye Drops] Ferrous Sulfate [Iron] 325 mg PO DAILY 02/27/19 02/27/19 History Gabapentin [Neurontin] 200 mg PO DAILY 02/27/19 02/27/19 History prednisoLONE ACETATE 1% OPHTH 1 drop RIGHT EYE QID 02/27/19 02/27/19 History [Pred Forte 1%] Allergies Allergy/AdvReac Type Severity Reaction Status Date / Time phenobarbital Allergy rash & Verified 02/27/19 13:53 swells up Surgical - Exam Vital Signs Temp Pulse Resp BP Pulse Ox 98.1 F 72 18 75/47 99 02/27/19 11:38 02/27/19 11:38 02/27/19 11:38 02/27/19 11:38 02/27/19 11:38 - General well developed, well nourished, no distress, no pain - ENT no hearing loss, no congestion - Respiratory normal expansion, normal respiratory effort - Abdomen Abdomen: soft, non tender, no distended - Genitourinary pires in place draining clear yellow urine - Psychiatric oriented to time, oriented to person, oriented to place, speech is normal Results - Labs 02/28/19 05:25 02/28/19 05:25 Abnormal Lab Results - Last 24 Hours (Table) 02/27/19 02/27/19 02/27/19 Range/Units 12:15 12:15 12:15 WBC 14.2 H (3.8-10.6) k/uL RBC 2.73 L (3.80-5.40) m/uL Hgb 8.9 L D (11.4-16.0) gm/dL Hct 26.4 L (34.0-46.0) % MCV (80.0-100.0) fL Neutrophils # 12.8 H (1.3-7.7) k/uL Lymphocytes # 0.9 L (1.0-4.8) k/uL PT 41.3 H (9.0-12.0) sec INR 4.3 H (<1.2) APTT 43.8 H (22.0-30.0) sec Chloride 111 H (98-107) mmol/L BUN 27 H (7-17) mg/dL Creatinine 1.16 H (0.52-1.04) mg/dL POC Glucose (mg/dL) (75-99) mg/dL Total Protein 5.9 L (6.3-8.2) g/dL Albumin 3.2 L (3.5-5.0) g/dL Urine Appearance (Clear) Ur Specific [place] (1.001-1.035) Urine Protein (Negative) Urine Ketones (Negative) Urine Blood (Negative) Ur Leukocyte Esterase (Negative) Urine RBC (0-5) /hpf Urine WBC (0-5) /hpf Urine WBC Clumps (None) /hpf Ur Squamous Epith Cells (0-4) /hpf Urine Mucus (None) /hpf 02/27/19 02/27/19 02/27/19 Range/Units 12:15 16:13 18:35 WBC 12.0 H (3.8-10.6) k/uL RBC 3.03 L (3.80-5.40) m/uL Hgb 9.8 L (11.4-16.0) gm/dL Hct 31.5 L (34.0-46.0) % MCV 104.0 H D (80.0-100.0) fL Neutrophils # 10.5 H (1.3-7.7) k/uL Lymphocytes # 0.9 L (1.0-4.8) k/uL PT (9.0-12.0) sec INR (<1.2) APTT (22.0-30.0) sec Chloride (98-107) mmol/L BUN (7-17) mg/dL Creatinine (0.52-1.04) mg/dL POC Glucose (mg/dL) 121 H (75-99) mg/dL Total Protein (6.3-8.2) g/dL Albumin (3.5-5.0) g/dL Urine Appearance Turbid H (Clear) Ur Specific [place] 1.042 H (1.001-1.035) Urine Protein 2+ H (Negative) Urine Ketones Trace H (Negative) Urine Blood Large H (Negative) Ur Leukocyte Esterase Small H (Negative) Urine RBC >182 H (0-5) /hpf Urine WBC 54 H (0-5) /hpf Urine WBC Clumps Few H (None) /hpf Ur Squamous Epith Cells 29 H (0-4) /hpf Urine Mucus Few H (None) /hpf 02/28/19 02/28/19 02/28/19 Range/Units 00:16 00:16 05:25 WBC 11.7 H (3.8-10.6) k/uL RBC 2.56 L 2.49 L (3.80-5.40) m/uL Hgb 8.3 L D 8.0 L (11.4-16.0) gm/dL Hct 25.7 L 24.5 L (34.0-46.0) % MCV 100.5 H (80.0-100.0) fL Neutrophils # (1.3-7.7) k/uL Lymphocytes # (1.0-4.8) k/uL PT 14.0 H (9.0-12.0) sec INR 1.4 H (<1.2) APTT (22.0-30.0) sec Chloride (98-107) mmol/L BUN (7-17) mg/dL Creatinine (0.52-1.04) mg/dL POC Glucose (mg/dL) (75-99) mg/dL Total Protein (6.3-8.2) g/dL Albumin (3.5-5.0) g/dL Urine Appearance (Clear) Ur Specific [place] (1.001-1.035) Urine Protein (Negative) Urine Ketones (Negative) Urine Blood (Negative) Ur Leukocyte Esterase (Negative) Urine RBC (0-5) /hpf Urine WBC (0-5) /hpf Urine WBC Clumps (None) /hpf Ur Squamous Epith Cells (0-4) /hpf Urine Mucus (None) /hpf 02/28/19 02/28/19 Range/Units 05:25 05:25 WBC (3.8-10.6) k/uL RBC (3.80-5.40) m/uL Hgb (11.4-16.0) gm/dL Hct (34.0-46.0) % MCV (80.0-100.0) fL Neutrophils # (1.3-7.7) k/uL Lymphocytes # (1.0-4.8) k/uL PT 12.3 H (9.0-12.0) sec INR 1.2 H (<1.2) APTT (22.0-30.0) sec Chloride 112 H (98-107) mmol/L BUN 18 H (7-17) mg/dL Creatinine (0.52-1.04) mg/dL POC Glucose (mg/dL) (75-99) mg/dL Total Protein (6.3-8.2) g/dL Albumin (3.5-5.0) g/dL Urine Appearance (Clear) Ur Specific [place] (1.001-1.035) Urine Protein (Negative) Urine Ketones (Negative) Urine Blood (Negative) Ur Leukocyte Esterase (Negative) Urine RBC (0-5) /hpf Urine WBC (0-5) /hpf Urine WBC Clumps (None) /hpf Ur Squamous Epith Cells (0-4) /hpf Urine Mucus (None) /hpf Microbiology - Last 24 Hours (Table) 02/27/19 12:15 Urine Culture - Final Urine,Voided Diabetes panel 02/27/19 02/28/19 Range/Units 12:15 05:25 Sodium 142 142 (137-145) mmol/L Potassium 4.3 4.2 (3.5-5.1) mmol/L Chloride 111 H 112 H (98-107) mmol/L Carbon Dioxide 26 25 (22-30) mmol/L BUN 27 H 18 H (7-17) mg/dL Creatinine 1.16 H 0.79 (0.52-1.04) mg/dL Glucose 88 87 (74-99) mg/dL Calcium 8.9 8.6 (8.4-10.2) mg/dL AST 27 (14-36) U/L ALT 36 (9-52) U/L Alkaline Phosphatase 53 (38-126) U/L Total Protein 5.9 L (6.3-8.2) g/dL Albumin 3.2 L (3.5-5.0) g/dL Calcium panel 02/27/19 02/28/19 Range/Units 12:15 05:25 Calcium 8.9 8.6 (8.4-10.2) mg/dL Albumin 3.2 L (3.5-5.0) g/dL Pituitary panel 02/27/19 02/28/19 Range/Units 12:15 05:25 Sodium 142 142 (137-145) mmol/L Potassium 4.3 4.2 (3.5-5.1) mmol/L Chloride 111 H 112 H (98-107) mmol/L Carbon Dioxide 26 25 (22-30) mmol/L BUN 27 H 18 H (7-17) mg/dL Creatinine 1.16 H 0.79 (0.52-1.04) mg/dL Glucose 88 87 (74-99) mg/dL Calcium 8.9 8.6 (8.4-10.2) mg/dL Adrenal panel 02/27/19 02/28/19 Range/Units 12:15 05:25 Sodium 142 142 (137-145) mmol/L Potassium 4.3 4.2 (3.5-5.1) mmol/L Chloride 111 H 112 H (98-107) mmol/L Carbon Dioxide 26 25 (22-30) mmol/L BUN 27 H 18 H (7-17) mg/dL Creatinine 1.16 H 0.79 (0.52-1.04) mg/dL Glucose 88 87 (74-99) mg/dL Calcium 8.9 8.6 (8.4-10.2) mg/dL Total Bilirubin 0.6 (0.2-1.3) mg/dL AST 27 (14-36) U/L ALT 36 (9-52) U/L Alkaline Phosphatase 53 (38-126) U/L Total Protein 5.9 L (6.3-8.2) g/dL Albumin 3.2 L (3.5-5.0) g/dL - Imaging CT scan - pelvis: image reviewed (CT Cystogram reviewed no evidence of bladder perforation, irrgularity along the left lateral bladder wall), other Assessment and Plan Assessment: 58 yo female with admitted with abdominal pain and hematuria, CT showed reteroperitoneal hematoma. She underwent a CT cystogram which showed no evidence of bladder perforation, there is some irregularity along the left lateral bladder wall. Plan: -CT Cystogram reviewed no evidence of bladder perforation, Hematoma does no appear to arise from the bladder or the kidney -Pires can be removed when patient is ambulatory -Continue abx for patient UTI -Can f/U as an outpatient for cystoscopy given the irregularity on CT Cystogram and gross hematuria
[2019-02-28] MEDS: SODIUM CHLORIDE 0.9% 1,000 ML IV SCH (14:24)
--- NOTE | 2019-02-28 14:47 | US ---
EXAMINATION TYPE: US venous doppler duplex LE DATE OF EXAM: 02/28/2019 2:05 PM COMPARISON: CLINICAL HISTORY: assess for dvt. hx of previous DVT. Stopped blood thinners. No leg pain. No leg redness. SIDE PERFORMED: Bilateral TECHNIQUE: The lower extremity deep venous system is examined utilizing real time linear array sonog favian with graded compression, doppler sonography and color-flow sonography. VESSELS IMAGED: External Iliac Vein (EIV) Common Femoral Vein Deep Femoral Vein Greater Saphenous Vein * Femoral Vein Popliteal Vein Small Saphenous Vein * Proximal Calf Veins (* superficial vessels) Grayscale, color doppler, spectral doppler imaging performed of the deep veins of the lower extremiti es. There is normal flow, compressibility, vascular waveforms. Right Leg: Negative for DVT Left Leg: Negative for DVT Fluid collection posterior to the right knee measures 3.1 cm. IMPRESSION: No sonographic evidence of deep venous thrombosis within either the bilateral lower extr emities. Probable right popliteal fossa cyst.
--- NOTE | 2019-02-28 14:54 | P.CON ---
Consult Note - . Consult date: 02/28/19 Assessment/Plan:: Patient is a 58-year-old female who was admitted to the hospital yesterday complaining of abdominal/pelvic discomfort. Computed tomography scan of the abdomen and pelvis demonstrated a large retroperitoneal hematoma located in the left lower quadrant. The patient has been on Coumadin for the past 6 months or so for a diagnosis of deep venous thrombosis of the lower extremities. Patient indicates she has had some difficulty regulating her INR. Her most recent INR prior to hospitalization is a proximally one week ago and patient indicated her INR was greater than 5. Currently the patient denies any shortness breath or other respiratory symptoms. On CAT scan a dissection of the infrarenal aorta was noted. Patient denies any history of claudication. She indicates she can ambulate approximately 1-2 blocks prior to experiencing some ankle and foot pain which is relieved only by nonweightbearing of her lower extremities. There is no history consistent with claudication. Past surgical history significant for cholecystectomy. Past medical history is significant for aortic dissection of the infrarenal abdominal aorta as well as lower extremity deep venous thrombosis. Physical examination revealed a pleasant appearing female who is alert cooperative no apparent stress. Neck was supple and free of adenopathy or bruit. Heart was regular without murmur. Lungs were clear auscultation bilaterally. Abdomen was soft and otherwise benign. No palpable masses nor organomegaly was noted. Examination lower extremity is demonstrates femoral, popliteal and posterior tibial pulses be intact bilaterally. There is no significant leg edema. Review of laboratory values demonstrates a decreased hemoglobin. Review of CAT scan demonstrates 2 significant findings 1 of a retroperitoneal hematoma on the left and this other a chronic aortic dissection. Impression: #1 is treated deep venous thrombosis being treated with Coumadin. Difficulty has been experienced managing her Coumadin dosing the patient is at least 6 months out from her diagnosis of DVT she may not need any further anticoagulation unless a hypercoagulable syndrome or other similar event is in the differential. #2 ecchymotic left arm, associated with with supratherapeutic INR. #3. Chronic aortic dissection located in the infrarenal position. Eventually this should be repaired and most likely can be repaired from a stent graft approach. The skin be further evaluated as an outpatient. Thank you very much for allowing me to pedis been care of your patient I trust this consultation is useful to you.
[2019-02-28 15:25] LABS: Basophils % (A) 0 %; Eosinophils # (A) 0.1 k/uL (0-0.7); Eosinophils % (A) 1 %; HCT 25.5 % (34.0-46.0); HGB 8.4 gm/dL (11.4-16.0); Lymphocytes # (A) 2.6 k/uL (1.0-4.8); Lymphocytes % (A) 25 %; MCH 31.9 pg (25.0-35.0); MCHC 32.9 g/dL (31.0-37.0); Mean Platelet Volume 6.6; Monocytes # (A) 0.5 k/uL (0-1.0); Monocytes % (A) 5 %; Neutrophils % (A) 68 %; Platelet Count 208 k/uL (150-450); RBC 2.63 m/uL (3.80-5.40); RDW 14.2 % (11.5-15.5); WBC 10.3 k/uL (3.8-10.6)
--- NOTE | 2019-02-28 15:56 | P.CNPUL ---
History of Present Illness Consult date: 02/28/19 Chief complaint: Abdominal/pelvic discomfort/pain History of present illness: This is a 58-year-old female patient who was hospitalized yesterday because of abdominal/pelvic discomfort. The patient has been on long-term anticoagulation with warfarin and unfortunately she has been able to control her PT/INR and there has been great deal of fluctuation in her INR levels. The patient has not the correlation for the past 6 months and the patient had bilateral lower extremity DVT and pulmonary embolism. The patient apparently had an INR above 5 last week. She came in with some hematuria suspecting an underlying UTI. Subsequently, a CAT scan of the abdomen and pelvis was done that showed a high- density fluid pocket within the pelvis adjacent to the iliopsoas muscle on the left and this was thought to be related airway retroperitoneal hematoma. This was To a blood filled bladder. There was also small bilateral pleural effusion, bulky uterus, chronic aortic dissection unchanged from previous examination and tiny umbilical hernia containing fat. Based on that, the patient underwent a cystogram retrograde and the patient was found to have a large high-density mass in the pelvis on the left side with fat stranding consistent with retroperitoneal hematoma that had been unchanged and there was no evidence of any bladder perforation. No definite bladder mass seen. As such, the patient's coagulopathy was reversed. The patient was given vitamin K. The patient was admitted to the intensive care units. No chest pain. No shortness of breath is no pleurisy. No hemoptysis. No significant lower extremity pain. The patient is essentially living a sedentary lifestyle. She had some skin bruising in her left upper extremity related to Coumadin toxicity and there was an area of ecchymotic change in her left upper extremity. I was involved in her care at time of her diagnosis with bilateral DVT and pulmonary embolism. The patient has chronic aortic dissection in the infrarenal portion that has not changed and vascular surgery has been aware of this abnormality. Review of Systems Constitutional: Reports as per HPI Eyes: denies as per HPI, denies blurred vision, denies bulging eye, denies decreased vision, denies diplopia, denies discharge, denies dry eye, denies irritation, denies itching, denies pain, denies photophobia, denies loss of peripheral vision, denies loss of vision, denies tunnel vision/blind spots Ears: deny: decreased hearing, ear discharge, earache, tinnitus Ears, nose, mouth and throat: Reports as per HPI Breasts: absent: as per HPI, change in shape, gynecomastia, masses, nipple discharge, pain, skin changes, swelling Cardiovascular: Reports decreased exercise tolerance Respiratory: Reports as per HPI, Reports dyspnea Gastrointestinal: Reports abdominal pain Genitourinary: Reports hematuria, Denies dysuria Menstruation: Reports as per HPI Musculoskeletal: Reports as per HPI Musculoskeletal: absent: ankle pain, ankle stiffness, ankle swelling, as per HPI, elbow pain, elbow stiffness, elbow swelling, foot pain, foot stiffness, foot swelling, hand pain, hand stiffness, hand swelling, hip pain, hip stiffness, hip swelling, knee pain, knee stiffness, knee swelling, shoulder pain, shoulder stiffness, shoulder swelling, wrist pain, wrist stiffness, wrist swelling Integumentary: Reports as per HPI (Ecchymosis in the left upper extremity) Neurological: Reports as per HPI Psychiatric: Reports as per HPI Endocrine: Reports as per HPI Hematologic/Lymphatic: Reports as per HPI Allergic/Immunologic: Reports as per HPI Past Medical History Past Medical History: Asthma, Deep Vein Thrombosis (DVT), Fibromyalgia, Hypertension, Osteoarthritis (OA), Pulmonary Embolus (PE), Rheumatoid Arthritis (RA), Sleep Apnea/CPAP/BIPAP, Vascular Disorder Additional Past Medical History / Comment(s): Obesity, aortic dissection involving the thoracic arch and descending aorta diagnosed back in October 2017 and has been stable since, severe obstructive sleep apnea with an AHI of 63 maintained on CPAP pressure of 10 cm of water, peripheral vascular disease, chronic anemia, history of left breast cysts, chronic back pain, History of Any Multi-Drug Resistant Organisms: None Reported Past Surgical History: Section, Cholecystectomy, Tubal Ligation Additional Past Surgical History / Comment(s): Colonoscopy Past Anesthesia/Blood Transfusion Reactions: No Reported Reaction Smoking Status: Never smoker - Past Family History Father Family Medical History: Myocardial Infarction (MA), Renal Disease Additional Family Medical History / Comment(s): Father of a MA at the age of 36 yrs. Mother Family Medical History: No Reported History Additional Family Medical History / Comment(s): Mother is healthy and 75 yrs old. Medications and Allergies Home Medications Medication Instructions Recorded Confirmed Type Folic Acid 1 mg PO DAILY 07/20/15 02/27/19 History Hydroxychloroquine Sulfate 200 mg PO BID 07/20/15 02/27/19 History [Plaquenil] Ipratropium [place] [Atrovent Hfa] 2 puff INHALATION RT-QID PRN 11/12/17 02/27/19 History Ranitidine HCl [Zantac] 150 mg PO BID 11/12/17 02/27/19 History Methotrexate 50mg/2ml 25 mg IM MO 07/14/18 02/27/19 History Metoprolol Tartrate [Lopressor] 50 mg PO BID 07/14/18 02/27/19 History Oxybutynin Chloride [Ditropan] 5 mg PO DAILY 07/14/18 02/27/19 History predniSONE See Taper PO DIRECTED 07/14/18 02/27/19 History Atorvastatin [Lipitor] 20 mg PO DAILY 02/22/19 02/27/19 History Cephalexin [Keflex] 500 mg PO Q8HR 02/22/19 02/27/19 History DULoxetine HCL [Cymbalta] 30 mg PO DAILY 02/22/19 02/27/19 History Lisinopril [Zestril] 10 mg PO DAILY 02/22/19 02/27/19 History QUEtiapine FUMARATE [SEROquel] 300 mg PO HS 02/22/19 02/27/19 History Warfarin [Coumadin] 2.5 mg PO HS@1800 02/22/19 02/27/19 History Adalimumab [Humira] 80 mg SQ Q14D 02/27/19 02/27/19 History Albuterol Inhaler [Ventolin Hfa 2 puff INHALATION RT-Q6H PRN 02/27/19 02/27/19 History Inhaler] Brimonidine Tartrate/Timolol 1 drop RIGHT EYE BID 02/27/19 02/27/19 History [Combigan 0.2%-0.5% Eye Drops] Ferrous Sulfate [Iron] 325 mg PO DAILY 02/27/19 02/27/19 History Gabapentin [Neurontin] 200 mg PO DAILY 02/27/19 02/27/19 History prednisoLONE ACETATE 1% OPHTH 1 drop RIGHT EYE QID 02/27/19 02/27/19 History [Pred Forte 1%] Allergies Allergy/AdvReac Type Severity Reaction Status Date / Time phenobarbital Allergy rash & Verified 02/27/19 13:53 swells up Physical Exam Vitals: Vital Signs Temp Pulse Resp BP Pulse Ox 02/28/19 15:00 81 22 113/65 96 02/28/19 14:00 82 13 118/67 97 02/28/19 13:00 86 12 130/64 98 02/28/19 12:00 98.2 F 85 20 138/74 99 02/28/19 11:00 77 15 136/72 98 02/28/19 10:00 90 21 139/70 95 02/28/19 09:00 86 21 154/85 97 02/28/19 08:00 98.3 F 73 13 148/85 98 02/28/19 07:00 70 17 156/93 99 02/28/19 06:00 80 15 143/76 100 02/28/19 05:00 77 14 133/74 100 02/28/19 04:00 98.3 F 67 16 118/68 99 02/28/19 03:00 66 15 122/79 97 02/28/19 02:00 72 16 122/62 96 02/28/19 01:00 70 16 130/80 100 02/28/19 00:00 98.5 F 71 17 118/64 97 02/27/19 23:09 66 17 118/64 96 02/27/19 23:00 67 16 105/65 96 02/27/19 22:00 65 17 139/83 97 02/27/19 21:30 73 18 139/83 97 02/27/19 21:00 19 127/67 98 02/27/19 20:30 70 21 127/67 99 02/27/19 20:00 97.5 F L 72 29 H 144/78 98 02/27/19 19:30 64 17 144/78 95 02/27/19 19:00 61 19 155/93 100 02/27/19 18:30 69 13 136/83 100 02/27/19 17:30 64 12 123/82 100 02/27/19 17:00 65 23 118/74 99 02/27/19 16:45 65 15 124/77 99 02/27/19 16:30 66 22 122/74 99 02/27/19 16:15 97.9 F 69 34 H 123/69 99 Intake and Output 02/28/19 02/28/19 02/28/19 06:59 14:59 22:59 Intake Total 450 1310 50 Output Total 805 580 0 Balance -355 730 50 Intake: IV 450 350 50 .9 450 350 50 Oral 960 Output: Urine 805 580 0 Other: Voiding Method Indwelling Catheter Indwelling Catheter # Voids 1 Weight 109 kg Obese, comfortable likely distress Head exam was generally normal. There was no scleral icterus or corneal arcus. Mucous membranes were moist. Neck was supple and without jugular venous distension, thyromegaly, or carotid bruits. Carotids were easily palpable bilaterally. There was no adenopathy. Mallampati class IV with micrognathia Lungs were clear to auscultation and percussion, and with normal diaphragmatic excursion. No wheezes or rales were noted. Cardiac exam revealed the PMI to be normally situated and sized. The rhythm was regular and no extrasystoles were noted during several minutes of auscultation. The first and second heart sounds were normal and physiologic splitting of the second heart sound was noted. There were no murmurs, rubs, clicks, or gallops. Abdominal exam revealed normal bowel sounds. The abdomen was soft, non-tender, and without masses, organomegaly, or appreciable enlargement of the abdominal aorta. Examination of the extremities revealed easily palpable radial, femoral and pedal pulses. There was no cyanosis, clubbing or edema. Examination of the skin revealed no evidence of significant rashes, suspicious appearing nevi or other concerning lesions. Neurologically awake and alert and there is no focal logical deficits Psychiatrically has history of chronic depression Results - Laboratory Findings CBC and BMP: 02/28/19 14:45 02/28/19 05:25 PT/INR, D-dimer PT 12.3 sec (9.0-12.0) H 02/28/19 05:25 INR 1.2 (<1.2) H 02/28/19 05:25 Abnormal lab findings: Abnormal Labs 02/27/19 02/27/19 02/27/19 12:15 12:15 12:15 WBC 14.2 H RBC 2.73 L Hgb 8.9 L D Hct 26.4 L MCV Neutrophils # 12.8 H Lymphocytes # 0.9 L PT 41.3 H INR 4.3 H APTT 43.8 H Chloride 111 H BUN 27 H Creatinine 1.16 H POC Glucose (mg/dL) Total Protein 5.9 L Albumin 3.2 L Urine Appearance Ur Specific [place] Urine Protein Urine Ketones Urine Blood Ur Leukocyte Esterase Urine RBC Urine WBC Urine WBC Clumps Ur Squamous Epith Cells Urine Mucus 02/27/19 02/27/19 02/27/19 12:15 16:13 18:35 WBC 12.0 H RBC 3.03 L Hgb 9.8 L Hct 31.5 L MCV 104.0 H D Neutrophils # 10.5 H Lymphocytes # 0.9 L PT INR APTT Chloride BUN Creatinine POC Glucose (mg/dL) 121 H Total Protein Albumin Urine Appearance Turbid H Ur Specific [place] 1.042 H Urine Protein 2+ H Urine Ketones Trace H Urine Blood Large H Ur Leukocyte Esterase Small H Urine RBC >182 H Urine WBC 54 H Urine WBC Clumps Few H Ur Squamous Epith Cells 29 H Urine Mucus Few H 02/28/19 02/28/19 02/28/19 00:16 00:16 05:25 WBC 11.7 H RBC 2.56 L 2.49 L Hgb 8.3 L D 8.0 L Hct 25.7 L 24.5 L MCV 100.5 H Neutrophils # Lymphocytes # PT 14.0 H INR 1.4 H APTT Chloride BUN Creatinine POC Glucose (mg/dL) Total Protein Albumin Urine Appearance Ur Specific [place] Urine Protein Urine Ketones Urine Blood Ur Leukocyte Esterase Urine RBC Urine WBC Urine WBC Clumps Ur Squamous Epith Cells Urine Mucus 02/28/19 02/28/19 02/28/19 05:25 05:25 14:45 WBC RBC 2.63 L Hgb 8.4 L Hct 25.5 L MCV Neutrophils # Lymphocytes # PT 12.3 H INR 1.2 H APTT Chloride 112 H BUN 18 H Creatinine POC Glucose (mg/dL) Total Protein Albumin Urine Appearance Ur Specific [place] Urine Protein Urine Ketones Urine Blood Ur Leukocyte Esterase Urine RBC Urine WBC Urine WBC Clumps Ur Squamous Epith Cells Urine Mucus Assessment and Plan Plan: 1 retroperitoneal hematoma without evidence of any bladder injury or urinary leak. Consider supratherapeutic PT/INR causing spontaneous retroperitoneal bleed in addition to some ecchymosis in the left upper extremity related to the same problem. The patient is currently off anticoagulation and coagulopathy is reversed and INR is down to 1.2. General surgical consultation has been obtained. After surgery consultation has also been obtained. 2 history of pulmonary embolism involving the lingula and the left lower lobe pulmonary artery segments in addition to bilateral lower extremity DVT, popliteal. This is an unprovoked event, then the patient has been anticoagulated with warfarin and the PT/INR has been essentially fluctuating in the patient has been under poor control with supratherapeutic levels recorded. 3 history of aortic dissection involving the thoracic aortic arch and descending thoracic aorta, stable and less prominent compared to the previous CAT scan from 2018, and most recent CAT scan of the abdomen and pelvis that was done yesterday showed no significant change in the infrarenal descending aortic aneurysm. Vascular surgery is aware of this. 4 obesity with a BMI of 36.8 5 obstructive sleep apnea CVA with an AHI of 63 maintained on CPAP pressure of 10 cm of water 6 hypertension 7 rheumatoid arthritis 8 fibromyalgia 9 hypertension 10 depression Plan We'll take this patient off anticoagulation for now. We'll monitor the hemoglobin. Monitor the ecchymotic area on the skin and the retroperitoneal bleed by monitoring the hemoglobin. We'll obtain consultation from vascular surgery and general surgery. I'm going to repeat a Doppler of the lower extremity to see there is any residual clotting of the leg. If negative, it will be very reasonable to hold anticoagulation for a while and readdress safety of anticoagulation versus a filter placement at a later stage. Would like to get the opinion of hematology oncology regarding the patient's risk of having another event in the future. For now, the patient will be taken off anticoagulation. The patient monitored here in the ICU. The patient has completed 6 months of anticoagulation for now. We'll follow.
--- NOTE | 2019-02-28 16:38 | P.PN ---
Subjective This is a 58-year-old female admitted with abdominal pain, hematuria, retroperitoneal hematoma as per CT of abdomen and pelvis. Follow-up CT of pelv is without contrast reported no evidence of bladder perforation, no definite bladder mass seen, irregularity along the left lateral bladder wall, no change in retroperitoneal hematoma from earlier CT. Maintained on IV fluids at 50 MLS per hour telemetry sinus rhythm. Denies abdominal pain. Denies lightheadedness, dizziness or focal deficits. Denies chest pain, palpitations or shortness of breath. Afebrile, normal WBC. Urine culture and preliminary blood culture negative. Hemoglobin 8.4. Hematuria resolved. Objective - Vital Signs Vital signs: Vital Signs Temp 98.3 F 02/28/19 08:00 Pulse 86 02/28/19 09:00 Resp 21 02/28/19 09:00 BP 154/85 02/28/19 09:00 Pulse Ox 97 02/28/19 09:00 Intake & Output 02/27/19 02/28/19 02/28/19 18:59 06:59 18:59 Intake Total 430 650 340 Output Total 640 1170 280 Balance -210 -520 60 Weight 106.141 kg 109 kg Intake: IV 100 650 100 .9 100 650 100 Oral 240 Blood Product 330 Ffp 24 Cpd Unit 330 [id number] Output: Urine 640 1170 280 Other: Voiding Method Bedpan Indwelling Catheter Indwelling Catheter # Voids 1 - Exam PHYSICAL EXAM: VITAL SIGNS: As above GENERAL: Sitting up in bed, no acute distress HEENT: Conjunctivae normal. eyes normal. Oral mucosa moist NECK: No JVD. No thyroid enlargement. No LNs CARDIOVASCULAR: S1, S2 regular.. No murmur RESPIRATION: Breath sounds diminished in the bases. No rhonchi or crackles. No bronchial breathing. ABDOMEN: Soft, nontender . No guarding. no masses palpable. Bowel sounds heard. LEGS: No edema. no swelling, positive pulses. PSYCHIATRY: Alert and oriented X3, mood and affect normal. NERVOUS SYSTEM: Cranial N 2-12 grossly normal. Moves all 4 limbs. No focal deficits. Strength and sensation grossly intact.. Skin: no rash, left arm bruising, no cyanosis, no clubbing - Labs CBC & Chem 7: 02/28/19 14:45 02/28/19 05:25 Labs: Abnormal Lab Results - Last 24 Hours (Table) 02/27/19 02/27/19 02/27/19 Range/Units 12:15 12:15 12:15 WBC 14.2 H (3.8-10.6) k/uL RBC 2.73 L (3.80-5.40) m/uL Hgb 8.9 L D (11.4-16.0) gm/dL Hct 26.4 L (34.0-46.0) % MCV (80.0-100.0) fL Neutrophils # 12.8 H (1.3-7.7) k/uL Lymphocytes # 0.9 L (1.0-4.8) k/uL PT 41.3 H (9.0-12.0) sec INR 4.3 H (<1.2) APTT 43.8 H (22.0-30.0) sec Chloride 111 H (98-107) mmol/L BUN 27 H (7-17) mg/dL Creatinine 1.16 H (0.52-1.04) mg/dL POC Glucose (mg/dL) (75-99) mg/dL Total Protein 5.9 L (6.3-8.2) g/dL Albumin 3.2 L (3.5-5.0) g/dL Urine Appearance (Clear) Ur Specific [place] (1.001-1.035) Urine Protein (Negative) Urine Ketones (Negative) Urine Blood (Negative) Ur Leukocyte Esterase (Negative) Urine RBC (0-5) /hpf Urine WBC (0-5) /hpf Urine WBC Clumps (None) /hpf Ur Squamous Epith Cells (0-4) /hpf Urine Mucus (None) /hpf 02/27/19 02/27/19 02/27/19 Range/Units 12:15 16:13 18:35 WBC 12.0 H (3.8-10.6) k/uL RBC 3.03 L (3.80-5.40) m/uL Hgb 9.8 L (11.4-16.0) gm/dL Hct 31.5 L (34.0-46.0) % MCV 104.0 H D (80.0-100.0) fL Neutrophils # 10.5 H (1.3-7.7) k/uL Lymphocytes # 0.9 L (1.0-4.8) k/uL PT (9.0-12.0) sec INR (<1.2) APTT (22.0-30.0) sec Chloride (98-107) mmol/L BUN (7-17) mg/dL Creatinine (0.52-1.04) mg/dL POC Glucose (mg/dL) 121 H (75-99) mg/dL Total Protein (6.3-8.2) g/dL Albumin (3.5-5.0) g/dL Urine Appearance Turbid H (Clear) Ur Specific [place] 1.042 H (1.001-1.035) Urine Protein 2+ H (Negative) Urine Ketones Trace H (Negative) Urine Blood Large H (Negative) Ur Leukocyte Esterase Small H (Negative) Urine RBC >182 H (0-5) /hpf Urine WBC 54 H (0-5) /hpf Urine WBC Clumps Few H (None) /hpf Ur Squamous Epith Cells 29 H (0-4) /hpf Urine Mucus Few H (None) /hpf 02/28/19 02/28/19 02/28/19 Range/Units 00:16 00:16 05:25 WBC 11.7 H (3.8-10.6) k/uL RBC 2.56 L 2.49 L (3.80-5.40) m/uL Hgb 8.3 L D 8.0 L (11.4-16.0) gm/dL Hct 25.7 L 24.5 L (34.0-46.0) % MCV 100.5 H (80.0-100.0) fL Neutrophils # (1.3-7.7) k/uL Lymphocytes # (1.0-4.8) k/uL PT 14.0 H (9.0-12.0) sec INR 1.4 H (<1.2) APTT (22.0-30.0) sec Chloride (98-107) mmol/L BUN (7-17) mg/dL Creatinine (0.52-1.04) mg/dL POC Glucose (mg/dL) (75-99) mg/dL Total Protein (6.3-8.2) g/dL Albumin (3.5-5.0) g/dL Urine Appearance (Clear) Ur Specific [place] (1.001-1.035) Urine Protein (Negative) Urine Ketones (Negative) Urine Blood (Negative) Ur Leukocyte Esterase (Negative) Urine RBC (0-5) /hpf Urine WBC (0-5) /hpf Urine WBC Clumps (None) /hpf Ur Squamous Epith Cells (0-4) /hpf Urine Mucus (None) /hpf 02/28/19 02/28/19 Range/Units 05:25 05:25 WBC (3.8-10.6) k/uL RBC (3.80-5.40) m/uL Hgb (11.4-16.0) gm/dL Hct (34.0-46.0) % MCV (80.0-100.0) fL Neutrophils # (1.3-7.7) k/uL Lymphocytes # (1.0-4.8) k/uL PT 12.3 H (9.0-12.0) sec INR 1.2 H (<1.2) APTT (22.0-30.0) sec Chloride 112 H (98-107) mmol/L BUN 18 H (7-17) mg/dL Creatinine (0.52-1.04) mg/dL POC Glucose (mg/dL) (75-99) mg/dL Total Protein (6.3-8.2) g/dL Albumin (3.5-5.0) g/dL Urine Appearance (Clear) Ur Specific [place] (1.001-1.035) Urine Protein (Negative) Urine Ketones (Negative) Urine Blood (Negative) Ur Leukocyte Esterase (Negative) Urine RBC (0-5) /hpf Urine WBC (0-5) /hpf Urine WBC Clumps (None) /hpf Ur Squamous Epith Cells (0-4) /hpf Urine Mucus (None) /hpf Microbiology - Last 24 Hours (Table) 02/27/19 12:15 Urine Culture - Preliminary Urine,Voided Assessment and Plan Assessment: - Spontaneous Retroperitoneal hematoma with acute blood loss anemia, in a patient with supratherapeutic PT/INR on admission. F/U CT of pelvis reporting no evidence of bladder perforation, no definite bladder mass seen, some lateral bladder wall irregularity-urology following. -Coumadin coagulopathy, reversed -History of PE, bilateral lower extremity DVT , -Possible acute UTI, present on admission -Acute renal failure, ATN, present on admission -Chronic aortic dissection involving the thoracic aortic arch and descending thoracic aorta, stable -CT scan reporting no significant change in the infrarenal descending aortic aneurysm. Vascular surgery following. -Morbid obesity, BMI of 36.8 -Obstructive sleep apnea -Hypertension -Fibromyalgia -Rheumatoid arthritis -Depression Plan: Continue on current medication regime ,monitoring and symptomatic treatment. Vascular surgery and urology consults in place with recommendations pending. Anticoagulation currently on hold, potential filter. Close monitoring of hemoglobin. Maintain IV antibiotic therapy. Further recommendations to follow. The impression and plan of care has been dictated as directed. : I performed a history and examination of this patient, discussed the same with the dictator. I agree with the dictator's note ,documented as a scribe. Any additional findings or plans will be noted.
[2019-02-28] MEDS: QUEtiapine 100 MG TAB PO SCH (20:30)
[2019-02-28 22:51] LABS: Basophils % (A) 0 %; Eosinophils # (A) 0.1 k/uL (0-0.7); Eosinophils % (A) 1 %; HCT 24.8 % (34.0-46.0); Lymphocytes # (A) 2.5 k/uL (1.0-4.8); Lymphocytes % (A) 25 %; MCH 31.4 pg (25.0-35.0); MCHC 32.5 g/dL (31.0-37.0); MCV 96.8 fL (80.0-100.0); Mean Platelet Volume 6.4; Monocytes # (A) 0.4 k/uL (0-1.0); Monocytes % (A) 4 %; Neutrophils # (A) 6.8 k/uL (1.3-7.7); Neutrophils % (A) 69 %; Platelet Count 189 k/uL (150-450); RBC 2.56 m/uL (3.80-5.40); RDW 14.4 % (11.5-15.5)
[2019-03-01] MEDS: ACETAMINOPHEN TAB 325 MG TAB PO PRN ×3 (02:27→22:24)
[2019-03-01 05:31] LABS: Basophils % (A) 0 %; Eosinophils # (A) 0.2 k/uL (0-0.7); Eosinophils % (A) 2 %; HCT 26.5 % (34.0-46.0); HGB 8.5 gm/dL (11.4-16.0); Lymphocytes # (A) 2.3 k/uL (1.0-4.8); Lymphocytes % (A) 23 %; MCH 31.5 pg (25.0-35.0); MCHC 32.1 g/dL (31.0-37.0); Mean Platelet Volume 6.2; Monocytes # (A) 0.4 k/uL (0-1.0); Monocytes % (A) 4 %; Neutrophils # (A) 7.2 k/uL (1.3-7.7); Neutrophils % (A) 71 %; Platelet Count 185 k/uL (150-450); RDW 14.3 % (11.5-15.5); WBC 10.2 k/uL (3.8-10.6)
[2019-03-01 05:36] LABS: INR 0.9 (<1.2); Prothrombin Time 10.2 sec (9.0-12.0)
[2019-03-01 05:44] LABS: African American GFR (CKD) >90 (>60 ml/min/1.73 sqM); Anion Gap 4 mmol/L; Blood Urea Nitrogen 14 mg/dL (7-17); Calcium 8.5 mg/dL (8.4-10.2); Carbon Dioxide 25 mmol/L (22-30); Chloride 110 mmol/L (98-107); Glucose 92 mg/dL (74-99); Potassium 4.2 mmol/L (3.5-5.1); Sodium 139 mmol/L (137-145)
[2019-03-01] MEDS: PANTOPRAZOLE 40 MG TABLET PO SCH (06:31)
[2019-03-01] MEDS: SODIUM CHLORIDE 0.9% 1,000 ML IV SCH (07:06)
[2019-03-01] MEDS: FOLIC ACID 1 MG TAB PO SCH (08:30)
[2019-03-01] MEDS: DORZOLAMIDE-TIMOLOL 2.23%/0.68 10ML BTL RIGHT EYE SCH ×2 (08:30→22:23)
[2019-03-01] MEDS: HYDROXYCHLOROQUINE SULFATE 200 MG TAB PO SCH ×2 (08:30→22:23)
[2019-03-01] MEDS: ATORVASTATIN 20 MG TAB PO SCH (08:30)
[2019-03-01] MEDS: prednisoLONE ACETATE 1% OPHTH DROPS 5 ML BTL RIGHT EYE SCH ×4 (08:30→22:31)
[2019-03-01] MEDS: GABAPENTIN 100 MG CAP PO SCH (08:30)
[2019-03-01] MEDS: DULoxetine HCL 30 MG CAPSULE.DR PO SCH (08:32)
--- NOTE | 2019-03-01 10:04 | P.PN ---
Subjective Progress Note Date: 03/01/19 This is a 58-year-old female patient who was hospitalized yesterday because of abdominal/pelvic discomfort. The patient has been on long-term anticoagulation with warfarin and unfortunately she has been able to control her PT/INR and there has been great deal of fluctuation in her INR levels. The patient has not the correlation for the past 6 months and the patient had bilateral lower extremity DVT and pulmonary embolism. The patient apparently had an INR above 5 last week. She came in with some hematuria suspecting an underlying UTI. Subsequently, a CAT scan of the abdomen and pelvis was done that showed a high- density fluid pocket within the pelvis adjacent to the iliopsoas muscle on the l eft and this was thought to be related airway retroperitoneal hematoma. This was To a blood filled bladder. There was also small bilateral pleural effusion, bulky uterus, chronic aortic dissection unchanged from previous examination and tiny umbilical hernia containing fat. Based on that, the patient underwent a cystogram retrograde and the patient was found to have a large high-density mass in the pelvis on the left side with fat stranding consistent with retroperitoneal hematoma that had been unchanged and there was no evidence of any bladder perforation. No definite bladder mass seen. As such, the patient's coagulopathy was reversed. The patient was given vitamin K. The patient was admitted to the intensive care units. No chest pain. No shortness of breath is no pleurisy. No hemoptysis. No significant lower extremity pain. The patient is essentially living a sedentary lifestyle. She had some skin bruising in her left upper extremity related to Coumadin toxicity and there was an area of ecchymotic change in her left upper extremity. I was involved in her care at time of her diagnosis with bilateral DVT and pulmonary embolism. The patient has chronic aortic dissection in the infrarenal portion that has not changed and vascular surgery has been aware of this abnormality. On 03/01/2019 the patient is stable without any specific complaints. Hemodynamically stable. No abdominal discomfort. No nausea or vomiting. No abdominal pain. No bleeding complications. No hematuria. The patient underwent a Doppler of the lower extremity and there is no evidence of any DVTs. She was also seen by vascular surgery regarding the aortic dissection. No plans any surgical intervention at this point in time. This is going to be monitored on outpatient basis. We have decided to hold and to coagulation for now. No other complaints such as chest pain or shortness of breath or pleurisy. Objective - Vital Signs Vital signs: Vital Signs Temp 98.0 F 03/01/19 08:00 Pulse 107 H 03/01/19 09:00 Resp 19 03/01/19 09:00 BP 118/102 03/01/19 08:00 Pulse Ox 98 03/01/19 09:00 Intake & Output 02/28/19 03/01/19 03/01/19 18:59 06:59 18:59 Intake Total 2230 850 75 Output Total 680 800 300 Balance 1550 50 -225 Weight 110.3 kg Intake: IV 550 650 25 .9 550 650 25 Intake, IV Titration 50 Amount cefTRIAXone 1 gm In 50 Sodium Chloride 0.9% 50 ml @ 100 mls/hr IVPB Q24HR [facility] Rx#:[id number] Oral 1680 200 Output: Urine 680 800 300 Other: Voiding Method Toilet Toilet Toilet Incontinent # Voids 1 1 1 # Bowel Movements 1 - Exam Obese, comfortable likely distress Head exam was generally normal. There was no scleral icterus or corneal arcus. M ucous membranes were moist. Neck was supple and without jugular venous distension, thyromegaly, or carotid bruits. Carotids were easily palpable bilaterally. There was no adenopathy. Mallampati class IV with micrognathia Lungs were clear to auscultation and percussion, and with normal diaphragmatic excursion. No wheezes or rales were noted. Cardiac exam revealed the PMI to be normally situated and sized. The rhythm was regular and no extrasystoles were noted during several minutes of auscultation. The first and second heart sounds were normal and physiologic splitting of the second heart sound was noted. There were no murmurs, rubs, clicks, or gallops. Abdominal exam revealed normal bowel sounds. The abdomen was soft, non-tender, and without masses, organomegaly, or appreciable enlargement of the abdominal aorta. Examination of the extremities revealed easily palpable radial, femoral and pedal pulses. There was no cyanosis, clubbing or edema. Examination of the skin revealed no evidence of significant rashes, suspicious appearing nevi or other concerning lesions. Neurologically awake and alert and there is no focal logical deficits Psychiatrically has history of chronic depression - Labs CBC & Chem 7: 03/01/19 05:11 03/01/19 05:11 Labs: Abnormal Lab Results - Last 24 Hours (Table) 02/28/19 02/28/19 03/01/19 Range/Units 14:45 22:26 05:11 RBC 2.63 L 2.56 L 2.70 L (3.80-5.40) m/uL Hgb 8.4 L 8.0 L 8.5 L (11.4-16.0) gm/dL Hct 25.5 L 24.8 L 26.5 L (34.0-46.0) % Chloride (98-107) mmol/L 03/01/19 Range/Units 05:11 RBC (3.80-5.40) m/uL Hgb (11.4-16.0) gm/dL Hct (34.0-46.0) % Chloride 110 H (98-107) mmol/L Microbiology - Last 24 Hours (Table) 02/27/19 12:15 Blood Culture - Preliminary Blood No Growth after 24 hours 02/27/19 12:15 Urine Culture - Final Urine,Voided Assessment and Plan Plan: 1 retroperitoneal hematoma without evidence of any bladder injury or urinary leak. Consider supratherapeutic PT/INR causing spontaneous retroperitoneal bleed in addition to some ecchymosis in the left upper extremity related to the same problem. The patient is currently off anticoagulation and coagulopathy is reversed and the hemoglobin remains stable without any significant signs of ongoing bleeding for the time being. We decided to hold anticoagulation for now. 2 history of pulmonary embolism involving the lingula and the left lower lobe pulmonary artery segments in addition to bilateral lower extremity DVT, popliteal. This is an unprovoked event, then the patient has been anticoagulated with warfarin and the PT/INR has been essentially fluctuating in the patient has been under poor control with supratherapeutic levels recorded. At that the patient has received a total of 6 months of anticoagulation with warfarin. Doppler of the lower Extremities currently free of any DVTs. 3 history of aortic dissection involving the thoracic aortic arch and descending thoracic aorta, stable and less prominent compared to the previous CAT scan from 2018, and most recent CAT scan of the abdomen and pelvis that was done yesterday showed no significant change in the infrarenal descending aortic aneurysm. Vascular surgery is aware of this. 4 obesity with a BMI of 36.8 5 obstructive sleep apnea CVA with an AHI of 63 maintained on CPAP pressure of 10 cm of water 6 hypertension 7 rheumatoid arthritis 8 fibromyalgia 9 hypertension 10 depression Plan Hold the anticoagulation for now. The patient received a total of 6 months of anticoagulation for now. Risk stratify this patient for future clotting I obtaining a hypercoagulable workup. Monitor the aortic dissection. Obtain a pathology workup. Vascular surgery is on the case. We'll continue to follow. The patient can be changed out of the intensive care unit. Hemoglobin stable for now.
--- NOTE | 2019-03-01 13:43 | P.PN ---
Subjective Progress Note Date: 03/01/19 Patient seen and examined at bedside. States her abdominal pain has improved. She is no longer having any hematuria episodes. She is tolerating a diet. Hemoglobin is 8.5 today. Objective - Vital Signs Vital signs: Vital Signs Temp 98.4 F 03/01/19 12:00 Pulse 91 03/01/19 12:00 Resp 18 03/01/19 12:00 BP 131/70 03/01/19 12:00 Pulse Ox 97 03/01/19 12:00 Intake & Output 02/28/19 03/01/19 03/01/19 18:59 06:59 18:59 Intake Total 2230 850 585 Output Total 680 800 300 Balance 1550 50 285 Weight 110.3 kg Intake: IV 550 650 175 .9 550 650 175 Intake, IV Titration 50 Amount cefTRIAXone 1 gm In 50 Sodium Chloride 0.9% 50 ml @ 100 mls/hr IVPB Q24HR [facility] Rx#:[id number] Oral 1680 200 360 Output: Urine 680 800 300 Other: Voiding Method Toilet Toilet Toilet Incontinent # Voids 1 1 1 # Bowel Movements 1 - Constitutional General appearance: Present: cooperative, no acute distress - Respiratory Details: No difficulty with respiration - Gastrointestinal Gastrointestinal Comment(s): Soft, nontender, nondistended, no rebound, no guarding - Musculoskeletal Musculoskeletal: Present: generalized weakness - Psychiatric Psychiatric: Present: A&O x's 3 - Labs CBC & Chem 7: 03/01/19 05:11 03/01/19 05:11 Labs: Abnormal Lab Results - Last 24 Hours (Table) 02/28/19 02/28/19 03/01/19 Range/Units 14:45 22:26 05:11 RBC 2.63 L 2.56 L 2.70 L (3.80-5.40) m/uL Hgb 8.4 L 8.0 L 8.5 L (11.4-16.0) gm/dL Hct 25.5 L 24.8 L 26.5 L (34.0-46.0) % Chloride (98-107) mmol/L 03/01/19 Range/Units 05:11 RBC (3.80-5.40) m/uL Hgb (11.4-16.0) gm/dL Hct (34.0-46.0) % Chloride 110 H (98-107) mmol/L Microbiology - Last 24 Hours (Table) 02/27/19 12:15 Blood Culture - Preliminary Blood No Growth after 24 hours 02/27/19 12:15 Urine Culture - Final Urine,Voided Assessment and Plan (1) Retroperitoneal bleed Narrative/Plan: 58-year-old female with hematuria and retroperitoneal hematoma - The patient is noted to have a supratherapeutic INR on admission, retroperitoneal hematoma seen stable. Anticoagulation per primary team and ICU. - Hemoglobin currently is 8.5 and appears to be remaining stable. - I would continue with supportive measures and anti-coagulation reversal to prevent any further bleeding. CT cystoscopy was performed and there does not appear to be any bladder mass or bladder perforation. The fluid collections in the pelvis does not appear to be increasing in size and appears to be a retroperitoneal hematoma. She has stabilized with the current regimen and does not appear to be actively bleeding. We will continue to closely monitor for any acute clinical changes that may require any emergent procedure. With any active bleeding, I would also consider angioembolization. - Continue ICU management - Please call as necessary for any new recommendations Current Visit: Yes Status: Acute Code(s): R58 - HEMORRHAGE, NOT ELSEWHERE CLASSIFIED SNOMED Code(s): 98781916
[2019-03-01 13:45] LABS: HCT 27.7 % (34.0-46.0); HGB 8.6 gm/dL (11.4-16.0); MCH 30.6 pg (25.0-35.0); MCHC 31.2 g/dL (31.0-37.0); Mean Platelet Volume 7.1; Platelet Count 216 k/uL (150-450); RBC 2.82 m/uL (3.80-5.40); RDW 14.4 % (11.5-15.5); WBC 11.1 k/uL (3.8-10.6)
--- NOTE | 2019-03-01 16:16 | P.PN ---
Subjective Progress Note Date: 03/01/19 This is a 58-year-old female admitted with abdominal pain, hematuria, retroperitoneal hematoma as per CT of abdomen and pelvis. Follow-up CT of pelvis without contrast reported no evidence of bladder perforation, no definite bladder mass seen, irregularity along the left lateral bladder wall, no change in retroperitoneal hematoma from earlier CT. Maintained on IV fluids at 50 MLS per hour telemetry sinus rhythm. Denies abdominal pain. Denies lightheadedness, dizziness or focal deficits. Denies chest pain, palpitations or shortness of breath. Afebrile, normal WBC. Urine culture and preliminary blood culture negative. Hemoglobin 8.4. Hematuria resolved. 03/01/2019. Continues to do well, up in chair. Telemetry sinus rhythm to mild sinus tachycardia. Denies abdominal pain. Denies chest pain, palpitations or shortness of breath. Denies lightheadedness, dizziness or focal deficits. Co ntinues to have no hematuria. Hemoglobin stable, 8.6. Afebrile, WBC 11.1. Preliminary blood cultures -48 hours, urine culture negative. Objective - Vital Signs Vital signs: Vital Signs Temp 98.0 F 03/01/19 08:00 Pulse 107 H 03/01/19 09:00 Resp 19 03/01/19 09:00 BP 118/102 03/01/19 08:00 Pulse Ox 98 03/01/19 09:00 Intake & Output 02/28/19 03/01/19 03/01/19 18:59 06:59 18:59 Intake Total 2230 850 75 Output Total 680 800 300 Balance 1550 50 -225 Weight 110.3 kg Intake: IV 550 650 25 .9 550 650 25 Intake, IV Titration 50 Amount cefTRIAXone 1 gm In 50 Sodium Chloride 0.9% 50 ml @ 100 mls/hr IVPB Q24HR [facility] Rx#:[id number] Oral 1680 200 Output: Urine 680 800 300 Other: Voiding Method Toilet Toilet Toilet Incontinent # Voids 1 1 1 # Bowel Movements 1 - Exam PHYSICAL EXAM: VITAL SIGNS: As above GENERAL: Sitting up in chair, no acute distress HEENT: Conjunctivae normal. eyes normal. Oral mucosa moist NECK: No JVD. No thyroid enlargement. No LNs CARDIOVASCULAR: S1, S2 regular. No murmur RESPIRATION: Breath sounds diminished in the bases. No rhonchi or crackles. No bronchial breathing. ABDOMEN: Soft, nontender . No guarding. no masses palpable. Bowel sounds heard. LEGS: No edema. no swelling, positive pulses. PSYCHIATRY: Alert and oriented X3, mood and affect normal. NERVOUS SYSTEM: Cranial N 2-12 grossly normal. Moves all 4 limbs. No focal de ficits. Strength and sensation grossly intact.. Skin: no rash, left arm bruising, no clubbing - Labs CBC & Chem 7: 03/01/19 12:58 03/01/19 05:11 Labs: Abnormal Lab Results - Last 24 Hours (Table) 02/28/19 02/28/19 03/01/19 Range/Units 14:45 22:26 05:11 RBC 2.63 L 2.56 L 2.70 L (3.80-5.40) m/uL Hgb 8.4 L 8.0 L 8.5 L (11.4-16.0) gm/dL Hct 25.5 L 24.8 L 26.5 L (34.0-46.0) % Chloride (98-107) mmol/L 03/01/19 Range/Units 05:11 RBC (3.80-5.40) m/uL Hgb (11.4-16.0) gm/dL Hct (34.0-46.0) % Chloride 110 H (98-107) mmol/L Microbiology - Last 24 Hours (Table) 02/27/19 12:15 Blood Culture - Preliminary Blood No Growth after 24 hours 02/27/19 12:15 Urine Culture - Final Urine,Voided Assessment and Plan Assessment: - Spontaneous Retroperitoneal hematoma with acute blood loss anemia, in a patient with supratherapeutic PT/INR on admission. F/U CT of pelvis reporting no evidence of bladder perforation, no definite bladder mass seen, some lateral bladder wall irregularity-urology following. -Coumadin coagulopathy, reversed -History of PE, bilateral lower extremity DVT , -Possible acute UTI, present on admission -Acute renal failure, ATN, present on admission -Chronic aortic dissection involving the thoracic aortic arch and descending thoracic aorta, stable -CT scan reporting no significant change in the infrarenal descending aortic aneurysm. Vascular surgery following. -Morbid obesity, BMI of 36.8 -Obstructive sleep apnea -Hypertension -Fibromyalgia -Rheumatoid arthritis -Depression Plan: Continue on current medication regime ,monitoring and symptomatic t reatment. Maintain IV antibiotics. Evaluated by both Vascular surgery and urology with recommendations noted. Anticoagulation remains on hold. Close monitoring of hemoglobin. Patient has been downgraded to [facility] telemetry. The impression and plan of care has been dictated as directed. : I performed a history and examination of this patient, discussed the same with the dictator. I agree with the dictator's note ,documented as a scribe. Any additional findings or plans will be noted.
[2019-03-01] MEDS: QUEtiapine 100 MG TAB PO SCH (22:23)
[2019-03-01] MEDS: NYSTATIN 100,000 UNIT/GM POWD 15 GM TOPICAL SCH (22:33)
--- NOTE | 2019-03-02 04:56 | P.PN ---
Subjective Progress Note Date: 03/01/19 Principal diagnosis: aortic dissection Patient seen and examined. No new events over night. Denies any abdominal pain or back pain currently. States no discomfort with ambulation or at rest in lower extremities. Denies any fevers, chills, nausea, vomiting, chest pain or shortness of breath. Objective - Vital Signs Vital signs: Vital Signs Temp 98.1 F 03/01/19 23:51 Pulse 105 H 03/01/19 23:51 Resp 16 03/01/19 23:51 BP 113/71 03/01/19 23:51 Pulse Ox 97 03/01/19 23:51 Intake & Output 03/01/19 03/01/19 03/02/19 06:59 18:59 06:59 Intake Total 850 785 50 Output Total 800 650 100 Balance 50 135 -50 Weight 110.3 kg Intake: IV 650 375 50 .9 650 375 50 Intake, IV Titration 50 Amount cefTRIAXone 1 gm In 50 Sodium Chloride 0.9% 50 ml @ 100 mls/hr IVPB Q24HR [facility] Rx#:[id number] Oral 200 360 Output: Urine 800 650 100 Other: Voiding Method Toilet Toilet Toilet # Voids 1 1 1 # Bowel Movements 1 - Exam palpable dp and pt pulses bilaterally. calves are soft. Left lower extremity with 1+ edema. - Constitutional General appearance: Present: cooperative, morbidly obese - EENT Eyes: Present: PERRLA - Cardiovascular Rhythm: regular - Psychiatric Psychiatric: Present: A&O x's 3 - Labs CBC & Chem 7: 03/01/19 12:58 03/01/19 05:11 Labs: Abnormal Lab Results - Last 24 Hours (Table) 03/01/19 03/01/19 03/01/19 Range/Units 05:11 05:11 12:58 WBC 11.1 H (3.8-10.6) k/uL RBC 2.70 L 2.82 L (3.80-5.40) m/uL Hgb 8.5 L 8.6 L (11.4-16.0) gm/dL Hct 26.5 L 27.7 L (34.0-46.0) % Chloride 110 H (98-107) mmol/L Microbiology - Last 24 Hours (Table) 02/27/19 12:15 Blood Culture - Preliminary Blood No Growth after 48 hours Assessment and Plan Assessment: 1. Chronic infrarenal aortic dissection with small aneurysm 2. Retroperitoneal spontaneous hematoma secondary to coumadin coagulopathy 3. History of DVT/PE 4. Morbid obesity Plan: No vascular surgical intervention required for aortic dissection at this time. Follow up in the office in 2-4 weeks after discharge. Will re-eval at your request.
[2019-03-02] MEDS: SODIUM CHLORIDE 0.9% 1,000 ML IV SCH ×2 (05:44→21:46)
[2019-03-02] MEDS: PANTOPRAZOLE 40 MG TABLET PO SCH (08:00)
[2019-03-02] MEDS: ATORVASTATIN 20 MG TAB PO SCH (08:00)
[2019-03-02] MEDS: GABAPENTIN 100 MG CAP PO SCH (08:00)
[2019-03-02] MEDS: FOLIC ACID 1 MG TAB PO SCH (08:01)
[2019-03-02] MEDS: ACETAMINOPHEN TAB 325 MG TAB PO PRN ×2 (08:01→17:34)
[2019-03-02] MEDS: HYDROXYCHLOROQUINE SULFATE 200 MG TAB PO SCH ×2 (08:02→20:19)
[2019-03-02] MEDS: DORZOLAMIDE-TIMOLOL 2.23%/0.68 10ML BTL RIGHT EYE SCH ×2 (08:02→20:20)
[2019-03-02] MEDS: DULoxetine HCL 30 MG CAPSULE.DR PO SCH (08:02)
[2019-03-02] MEDS: prednisoLONE ACETATE 1% OPHTH DROPS 5 ML BTL RIGHT EYE SCH ×4 (08:02→20:25)
[2019-03-02] MEDS: NYSTATIN 100,000 UNIT/GM POWD 15 GM TOPICAL SCH ×2 (08:03→20:20)
[2019-03-02 08:30] LABS: Basophils % (A) 1 %; Eosinophils # (A) 0.1 k/uL (0-0.7); Eosinophils % (A) 2 %; HCT 26.4 % (34.0-46.0); HGB 8.7 gm/dL (11.4-16.0); Lymphocytes # (A) 1.6 k/uL (1.0-4.8); Lymphocytes % (A) 17 %; MCH 32.4 pg (25.0-35.0); MCHC 33.1 g/dL (31.0-37.0); MCV 97.8 fL (80.0-100.0); Mean Platelet Volume 6.8; Monocytes # (A) 0.4 k/uL (0-1.0); Monocytes % (A) 4 %; Neutrophils # (A) 7.3 k/uL (1.3-7.7); Neutrophils % (A) 77 %; Platelet Count 233 k/uL (150-450); RDW 14.6 % (11.5-15.5); WBC 9.5 k/uL (3.8-10.6)
[2019-03-02 08:36] LABS: African American GFR (CKD) >90 (>60 ml/min/1.73 sqM); Anion Gap 7 mmol/L; Blood Urea Nitrogen 12 mg/dL (7-17); Calcium 8.8 mg/dL (8.4-10.2); Carbon Dioxide 26 mmol/L (22-30); Chloride 107 mmol/L (98-107); Glucose 87 mg/dL (74-99); Potassium 4.2 mmol/L (3.5-5.1); Sodium 140 mmol/L (137-145)
[2019-03-02 08:45] LABS: INR 0.9 (<1.2); Prothrombin Time 9.8 sec (9.0-12.0)
--- NOTE | 2019-03-02 15:22 | P.PN ---
Subjective Progress Note Date: 03/02/19 Principal diagnosis: Retroperitoneal hematoma without evidence of any bladder injury or a urinary leak This is a 58-year-old female patient who was hospitalized yesterday because of abdominal/pelvic discomfort. The patient has been on long-term anticoagulation with warfarin and unfortunately she has been able to control her PT/INR and there has been great deal of fluctuation in her INR levels. The patient has not the correlation for the past 6 months and the patient had bilateral lower extremity DVT and pulmonary embolism. The patient apparently had an INR above 5 last week. She came in with some hematuria suspecting an underlying UTI. Subsequently, a CAT scan of the abdomen and pelvis was done that showed a high- density fluid pocket within the pelvis adjacent to the iliopsoas muscle on the left and this was thought to be related airway retroperitoneal hematoma. This was To a blood filled bladder. There was also small bilateral pleural effusion, bulky uterus, chronic aortic dissection unchanged from previous examination and tiny umbilical hernia containing fat. Based on that, the patient underwent a cystogram retrograde and the patient was found to have a large high-density mass in the pelvis on the left side with fat stranding consistent with retrope ritoneal hematoma that had been unchanged and there was no evidence of any bladder perforation. No definite bladder mass seen. As such, the patient's coagulopathy was reversed. The patient was given vitamin K. The patient was admitted to the intensive care units. No chest pain. No shortness of breath is no pleurisy. No hemoptysis. No significant lower extremity pain. The patient is essentially living a sedentary lifestyle. She had some skin bruising in her left upper extremity related to Coumadin toxicity and there was an area of ecchymotic change in her left upper extremity. I was involved in her care at time of her diagnosis with bilateral DVT and pulmonary embolism. The patient has chronic aortic dissection in the infrarenal portion that has not changed and vascular surgery has been aware of this abnormality. On 03/01/2019 the patient is stable without any specific complaints. Hemodynamically stable. No abdominal discomfort. No nausea or vomiting. No abdominal pain. No bleeding complications. No hematuria. The patient underwent a Doppler of the lower extremity and there is no evidence of any DVTs. She was also seen by vascular surgery regarding the aortic dissection. No plans any surgical intervention at this point in time. This is going to be monitored on outpatient basis. We have decided to hold and to coagulation for now. No other complaints such as chest pain or shortness of breath or pleurisy. On 03/02/2017 patient seen in follow-up on medical surgical floor. She is a chair, in no acute distress, denies any difficulty breathing. Room air pulse ox is 97%, vital signs are stable, afebrile. Today's labs have been reviewed, within is 90.5, hemoglobin is 8.7, BMP is unremarkable. No acute events overnight, patient is without specific complaints. Abdomen is soft, nontender. Anticoagulation remains on hold, no complaints, no shortness of breath or pleurisy Objective - Vital Signs Vital signs: Vital Signs Temp 98.0 F 03/02/19 14:48 Pulse 95 03/02/19 14:48 Resp 16 03/02/19 14:48 BP 112/77 03/02/19 14:48 Pulse Ox 97 03/02/19 14:48 Intake & Output 03/01/19 03/02/19 03/02/19 18:59 06:59 18:59 Intake Total 785 170 Output Total 650 100 Balance 135 70 Intake: IV 375 50 .9 375 50 Intake, IV Titration 50 Amount cefTRIAXone 1 gm In 50 Sodium Chloride 0.9% 50 ml @ 100 mls/hr IVPB Q24HR [facility] Rx#:[id number] Oral 360 120 Output: Urine 650 100 Other: Voiding Method Toilet Toilet Toilet # Voids 1 2 2 - Exam GENERAL EXAM: Alert, pleasant, 58-year-old white female, sitting up in the recliner, on room air, comfortable in no apparent distress. HEAD: Normocephalic/atraumatic. EYES: Normal reaction of pupils, equal size. Conjunctiva pink, sclera white. NOSE: Clear with pink turbinates. THROAT: No erythema or exudates. NECK: No masses, no JVD, no thyroid enlargement, no adenopathy. CHEST: No chest wall deformity. Symmetrical expansion. LUNGS: Equal air entry with no crackles, wheeze, rhonchi or dullness. CVS: Regular rate and rhythm, normal S1 and S2, no gallops, no murmurs, no rubs ABDOMEN: Soft, nontender. No hepatosplenomegaly, normal bowel sounds, no guarding or rigidity. EXTREMITIES: No clubbing, no edema, no cyanosis, 2+ pulses and upper and lower extremities. MUSCULOSKELETAL: Muscle strength and tone normal. SPINE: No scoliosis or deformity SKIN: No rashes CENTRAL NERVOUS SYSTEM: Alert and oriented -3. No focal deficits, tone is normal in all 4 extremities. PSYCHIATRIC: Alert and oriented -3. Appropriate affect. Intact judgment and insight. - Labs CBC & Chem 7: 03/02/19 07:09 03/02/19 07:09 Labs: Abnormal Lab Results - Last 24 Hours (Table) 03/02/19 Range/Units 07:09 RBC 2.70 L (3.80-5.40) m/uL Hgb 8.7 L (11.4-16.0) gm/dL Hct 26.4 L (34.0-46.0) % Microbiology - Last 24 Hours (Table) 02/27/19 12:15 Blood Culture - Preliminary Blood No Growth after 72 hours Assessment and Plan Plan: 1 retroperitoneal hematoma without evidence of any bladder injury or urinary leak. Consider supratherapeutic PT/INR causing spontaneous retroperitoneal bleed in addition to some ecchymosis in the left upper extremity related to the same problem. The patient is currently off anticoagulation and coagulopathy is reversed and the hemoglobin remains stable without any significant signs of ongoing bleeding for the time being. We decided to hold anticoagulation for now. 2 history of pulmonary embolism involving the lingula and the left lower lobe pulmonary artery segments in addition to bilateral lower extremity DVT, popliteal. This is an unprovoked event, then the patient has been anticoagulated with warfarin and the PT/INR has been essentially fluctuating in the patient has been under poor control with supratherapeutic levels recorded. At that the patient has received a total of 6 months of anticoagulation with warfarin. Doppler of the lower Extremities currently free of any DVTs. 3 history of aortic dissection involving the thoracic aortic arch and descending thoracic aorta, stable and less prominent compared to the previous CAT scan from 2018, and most recent CAT scan of the abdomen and pelvis that was done yesterday showed no significant change in the infrarenal descending aortic aneurysm. Vascular surgery is aware of this. 4 obesity with a BMI of 36.8 5 obstructive sleep apnea CVA with an AHI of 63 maintained on CPAP pressure of 10 cm of water 6 hypertension 7 rheumatoid arthritis 8 fibromyalgia 9 hypertension 10 depression Plan: Patient remains stable, no evidence of bleeding, no abdominal discomfort, no shortness of breath, hemoglobin is 8.7. Anticoagulation remains on hold, remains stable, breathing is stable, no specific complaints. No hematuria, she is tolerating oral diet, may need repeat CT scanning of the abdomen down the road, surgical services are following, vascular surgery is following. I performed a history & physical examination of the patient and discussed their management with my nurse practitioner, Andreina Maya. I reviewed the nurse pra ctitioner's note and agree with the documented findings and plan of care. Lung sounds are positive for clear breath sounds. The findings and the impression was discussed with the patient. I attest to the documentation by the nurse practitioner. Time with Patient: Less than 30
--- NOTE | 2019-03-02 16:20 | P.PN ---
Subjective Progress Note Date: 03/02/19 This is a 58-year-old female admitted with abdominal pain, hematuria, retroperitoneal hematoma as per CT of abdomen and pelvis. Follow-up CT of pelvis without contrast reported no evidence of bladder perforation, no definite bladder mass seen, irregularity along the left lateral bladder wall, no change in retroperitoneal hematoma from earlier CT. Maintained on IV fluids at 50 MLS per hour telemetry sinus rhythm. Denies abdominal pain. Denies lightheadedness, dizziness or focal deficits. Denies chest pain, palpitations or shortness of breath. Afebrile, normal WBC. Urine culture and preliminary blood culture negative. Hemoglobin 8.4. Hematuria resolved. 03/01/2019. Continues to do well, up in chair. Telemetry sinus rhythm to mild sinus tachycardia. Denies abdominal pain. Denies chest pain, palpitations or shortness of breath. Denies lightheadedness, dizziness or focal deficits. Co ntinues to have no hematuria. Hemoglobin stable, 8.6. Afebrile, WBC 11.1. Preliminary blood cultures -48 hours, urine culture negative. 03/02/18 VSS. Maintaining O2 sats in the high 90s on room air. Anticoagulation remains on hold, Hemoglobin stable, 8.7. Afebrile, normal WBC. Objective - Vital Signs Vital signs: Vital Signs Temp 98.0 F 03/02/19 14:48 Pulse 95 03/02/19 14:48 Resp 16 03/02/19 14:48 BP 112/77 03/02/19 14:48 Pulse Ox 97 03/02/19 14:48 Intake & Output 03/01/19 03/02/19 03/02/19 18:59 06:59 18:59 Intake Total 785 170 Output Total 650 100 Balance 135 70 Intake: IV 375 50 .9 375 50 Intake, IV Titration 50 Amount cefTRIAXone 1 gm In 50 Sodium Chloride 0.9% 50 ml @ 100 mls/hr IVPB Q24HR [facility] Rx#:[id number] Oral 360 120 Output: Urine 650 100 Other: Voiding Method Toilet Toilet Toilet # Voids 1 2 2 - Exam PHYSICAL EXAM: VITAL SIGNS: As above GENERAL: Sitting up in chair, no acute distress HEENT: Conjunctivae normal. eyes normal. Oral mucosa moist NECK: No JVD. No thyroid enlargement. No LNs CARDIOVASCULAR: S1, S2 regular. No murmur RESPIRATION: Breath sounds diminished in the bases. No rhonchi or crackles. No bronchial breathing. ABDOMEN: Soft, nontender . No guarding. no masses palpable. Bowel sounds heard. LEGS: No edema. no swelling, positive pulses. PSYCHIATRY: Alert and oriented X3, mood and affect normal. NERVOUS SYSTEM: Cranial N 2-12 grossly normal. Moves all 4 limbs. No focal deficits. Strength and sensation grossly intact.. Skin: no rash, left arm bruising, no clubbing Microbiology 02/27/19 12:15 Blood Blood Culture - Preliminary No Growth after 72 hours 02/27/19 12:15 Urine,Voided Urine Culture - Final - Labs CBC & Chem 7: 03/02/19 07:09 03/02/19 07:09 Labs: Abnormal Lab Results - Last 24 Hours (Table) 03/02/19 Range/Units 07:09 RBC 2.70 L (3.80-5.40) m/uL Hgb 8.7 L (11.4-16.0) gm/dL Hct 26.4 L (34.0-46.0) % Microbiology - Last 24 Hours (Table) 02/27/19 12:15 Blood Culture - Preliminary Blood No Growth after 72 hours Assessment and Plan Assessment: - Spontaneous Retroperitoneal hematoma with acute blood loss anemia, in a patient with supratherapeutic PT/INR on admission. F/U CT of pelvis reporting no evidence of bladder perforation, no definite bladder mass seen, some lateral bladder wall irregularity-urology following. -Coumadin coagulopathy, reversed -History of PE, bilateral lower extremity DVT , -Possible acute UTI, present on admission -Acute renal failure, ATN, present on admission -Chronic aortic dissection involving the thoracic aortic arch and descending thoracic aorta, stable -CT scan reporting no significant change in the infrarenal descending aortic aneurysm. Vascular surgery following. -Morbid obesity, BMI of 36.8 -Obstructive sleep apnea -Hypertension -Fibromyalgia -Rheumatoid arthritis -Depression Plan: Continue on current medication regime ,monitoring and symptomatic treatment. Anticoagulation remains on hold. Close monitoring of hemoglobin. Discharge planning in progress pending clearance from all consults. The impression and plan of care has been dictated as directed. : I performed a history and examination of this patient, discussed the same with the dictator. I agree with the dictator's note ,documented as a scribe. Any additional findings or plans will be noted.
[2019-03-02] MEDS: QUEtiapine 100 MG TAB PO SCH (20:19)
[2019-03-03] MEDS: ACETAMINOPHEN TAB 325 MG TAB PO PRN (06:22)
[2019-03-03 07:25] VITALS: BP 95/69; PULSE 107; RESP 17; TEMP 98.3
[2019-03-03 07:28] LABS: Basophils % (A) 0 %; Eosinophils # (A) 0.2 k/uL (0-0.7); Eosinophils % (A) 2 %; HCT 27.3 % (34.0-46.0); HGB 8.8 gm/dL (11.4-16.0); Lymphocytes # (A) 1.6 k/uL (1.0-4.8); Lymphocytes % (A) 20 %; MCH 31.5 pg (25.0-35.0); MCHC 32.3 g/dL (31.0-37.0); MCV 97.6 fL (80.0-100.0); Mean Platelet Volume 6.8; Monocytes # (A) 0.3 k/uL (0-1.0); Monocytes % (A) 4 %; Neutrophils # (A) 5.9 k/uL (1.3-7.7); Neutrophils % (A) 73 %; Platelet Count 257 k/uL (150-450); RBC 2.79 m/uL (3.80-5.40); RDW 14.7 % (11.5-15.5); WBC 8.1 k/uL (3.8-10.6)
[2019-03-03] MEDS: DULoxetine HCL 30 MG CAPSULE.DR PO SCH (08:40)
[2019-03-03] MEDS: FOLIC ACID 1 MG TAB PO SCH (08:40)
[2019-03-03] MEDS: ATORVASTATIN 20 MG TAB PO SCH (08:40)
[2019-03-03] MEDS: GABAPENTIN 100 MG CAP PO SCH (08:40)
[2019-03-03] MEDS: PANTOPRAZOLE 40 MG TABLET PO SCH (08:40)
[2019-03-03] MEDS: HYDROXYCHLOROQUINE SULFATE 200 MG TAB PO SCH (08:40)
[2019-03-03] MEDS: prednisoLONE ACETATE 1% OPHTH DROPS 5 ML BTL RIGHT EYE SCH ×2 (08:41→13:08)
[2019-03-03] MEDS: DORZOLAMIDE-TIMOLOL 2.23%/0.68 10ML BTL RIGHT EYE SCH (08:41)
[2019-03-03] MEDS: NYSTATIN 100,000 UNIT/GM POWD 15 GM TOPICAL SCH (08:43)
--- NOTE | 2019-03-03 21:40 | P.DS ---
Providers Date of admission: 02/27/19 14:59 Expected date of discharge: 03/03/19 Attending physician: Anotlin Croft MD Consults: 02/27/19 14:58 Consult Physician Routine Consulting Provider: Paco Olvera Consult Reason/Comments: Intraperitoneal hemorrhage Do you want consulting provider notified?: Yes 02/27/19 14:59 Consult Physician Stat Consulting Provider: Ean Coronado Consult Reason/Comments: Critical care management Do you want consulting provider notified?: Yes 02/27/19 15:43 Consult Physician Routine Consulting Provider: Rogerio Váqzuez Consult Reason/Comments: h/o aaa, anemia Do you want consulting provider notified?: Yes 02/27/19 16:36 Consult Physician Stat Consulting Provider: Naresh Deras Consult Reason/Comments: possible blood clotting in bladder, UTI Do you want consulting provider notified?: Already Contacted Primary care physician: Shana Schmidt - Discharge Diagnosis(es) (1) Overdose of coumadin Status: Acute (2) History of DVT (deep vein thrombosis) Status: Acute (3) History of pulmonary embolism Status: Acute (4) Elevated INR Status: Acute (5) Intraperitoneal bleeding Status: Acute (6) Retroperitoneal bleed Status: Acute (7) Traumatic ecchymosis of left upper arm Status: Acute Hospital Course: This is a 58-year-old female admitted with abdominal pain, hematuria, retroperitoneal hematoma as per CT of abdomen and pelvis. Follow-up CT of pelvis without contrast reported no evidence of bladder perforation, no definite bladder mass seen, irregularity along the left lateral bladder wall, no change in retroperitoneal hematoma from earlier CT. Maintained on IV fluids at 50 MLS per hour telemetry sinus rhythm. Denies abdominal pain. Denies lightheadedness, dizziness or focal deficits. Denies chest pain, palpitations or shortness of breath. Afebrile, normal WBC. Urine culture and preliminary blood culture negative. Hemoglobin 8.4. Hematuria resolved. 03/01/2019. Continues to do well, up in chair. Telemetry sinus rhythm to mild sinus tachycardia. Denies abdominal pain. Denies chest pain, palpitations or shortness of breath. Denies lightheadedness, dizziness or focal deficits. Continues to have no hematuria. Hemoglobin stable, 8.6. Afebrile, WBC 11.1. Preliminary blood cultures -48 hours, urine culture negative. 03/02/18 VSS. Maintaining O2 sats in the high 90s on room air. Anticoagulation remains on hold, Hemoglobin stable, 8.7. Afebrile, normal WBC. Pt was evaluated by multiple specialists, Urology signed off, Vascular surgery recommended avoiding IVF filter unless multiple other modalities failed. Hematology recommending resuming anticoagulation when safe. She is a poor candidate to resume coumadin due to labile INR and major bleeding event after being on anticoagulation for less than 6 months. Pt is discharged and recommended to stop coumadin. She will discuss starting eliquis vs xarelto in clinic in 3-5 days. She is advised on warning symptoms which would require her to return to the ED. Discharge exam: General: well nourished, well developed, NAD. Vitals reviewed HENT: normocephalic, mucus membranes moist Lungs: normal respiratory effort, no wheezes or rales CV: Regular rate and rhythm, no murmur. Peripheral pulses 2+ Abdomen: soft, nondistended, no organomegaly Skin: warm and dry. Neuro: A&Ox3, normal mood and affect Plan - Discharge Summary Discharge Rx Participant: Yes New Discharge Prescriptions: Continue RX: Hydroxychloroquine Sulfate [Plaquenil] 200 mg PO BID RX: Folic Acid 1 mg PO DAILY RX: Ipratropium [place] [Atrovent Hfa] 2 puff INHALATION RT-QID PRN PRN Reason: Shortness Of Breath RX: Ranitidine HCl [Zantac] 150 mg PO BID RX: predniSONE See Taper PO DIRECTED RX: Metoprolol Tartrate [Lopressor] 50 mg PO BID RX: Oxybutynin Chloride [Ditropan] 5 mg PO DAILY Methotrexate 50mg/2ml 25 mg IM MO RX: Lisinopril [Zestril] 10 mg PO DAILY RX: DULoxetine HCL [Cymbalta] 30 mg PO DAILY RX: Atorvastatin [Lipitor] 20 mg PO DAILY RX: QUEtiapine FUMARATE [SEROquel] 300 mg PO HS RX: prednisoLONE ACETATE 1% OPHTH [Pred Forte 1%] 1 drop RIGHT EYE QID RX: Albuterol Inhaler [Ventolin Hfa Inhaler] 2 puff INHALATION RT-Q6H PRN PRN Reason: Shortness Of Breath RX: Ferrous Sulfate [Iron] 325 mg PO DAILY RX: Adalimumab [Humira] 80 mg SQ Q14D RX: Gabapentin [Neurontin] 200 mg PO DAILY RX: Brimonidine Tartrate/Timolol [Combigan 0.2%-0.5% Eye Drops] 1 drop RIGHT EYE BID Discontinued Cephalexin [Keflex] 500 mg PO Q8HR Warfarin [Coumadin] 2.5 mg PO HS@1800 Discharge Medication List RX: Folic Acid 1 mg PO DAILY 07/20/15 [History] RX: Hydroxychloroquine Sulfate [Plaquenil] 200 mg PO BID 07/20/15 [History] RX: Ipratropium [place] [Atrovent Hfa] 2 puff INHALATION RT-QID PRN 11/12/17 [History] RX: Ranitidine HCl [Zantac] 150 mg PO BID 11/12/17 [History] Methotrexate 50mg/2ml 25 mg IM MO 07/14/18 [History] RX: Metoprolol Tartrate [Lopressor] 50 mg PO BID 07/14/18 [History] RX: Oxybutynin Chloride [Ditropan] 5 mg PO DAILY 07/14/18 [History] RX: predniSONE See Taper PO DIRECTED 07/14/18 [History] RX: Atorvastatin [Lipitor] 20 mg PO DAILY 02/22/19 [History] RX: DULoxetine HCL [Cymbalta] 30 mg PO DAILY 02/22/19 [History] RX: Lisinopril [Zestril] 10 mg PO DAILY 02/22/19 [History] RX: QUEtiapine FUMARATE [SEROquel] 300 mg PO HS 02/22/19 [History] RX: Adalimumab [Humira] 80 mg SQ Q14D 02/27/19 [History] RX: Albuterol Inhaler [Ventolin Hfa Inhaler] 2 puff INHALATION RT-Q6H PRN 02/27/19 [History] RX: Brimonidine Tartrate/Timolol [Combigan 0.2%-0.5% Eye Drops] 1 drop RIGHT EYE BID 02/27/19 [History] RX: Ferrous Sulfate [Iron] 325 mg PO DAILY 02/27/19 [History] RX: Gabapentin [Neurontin] 200 mg PO DAILY 02/27/19 [History] RX: prednisoLONE ACETATE 1% OPHTH [Pred Forte 1%] 1 drop RIGHT EYE QID 02/27/19 [History] Follow up Appointment(s)/Referral(s): Naresh Deras MD [STAFF PHYSICIAN] - 03/17/19 8:40 am Zachery López DO [Doctor of Osteopathic Medicine] - 03/17/19 1:30 pm Shana Schmidt DO [Primary Care Provider] - 03/08/19 10:00 am (With Curtis) Patient Instructions/Handouts: Anemia (ED), Anemia (DC) Discharge/Stand Alone Forms: Work/School Release Discharge Disposition: HOME SELF-CARE
== END 2019-03-03 13:41 | disposition home or self-care (01) | DRG 813 ==
LOC: EC 11:30 → 2SICU 14:59 → 4SSUR 03-02 01:09
PROVIDERS: ADMIT Family Medicine; ATTEND Family Medicine
DX: D68.32 Hemorrhagic disorder due to extrinsic circulating anticoagulants (principal); I71.00 Dissection of unspecified site of aorta; K66.1 Hemoperitoneum; N17.0 Acute kidney failure with tubular necrosis; D62 Acute posthemorrhagic anemia; N39.0 Urinary tract infection, site not specified; E66.01 Morbid (severe) obesity due to excess calories; F32.9 Major depressive disorder, single episode, unspecified; G47.33 Obstructive sleep apnea (adult) (pediatric); Z99.89 Dependence on other enabling machines and devices; G89.29 Other chronic pain; I10 Essential (primary) hypertension; Z86.718 Personal history of other venous thrombosis and embolism; Z86.711 Personal history of pulmonary embolism; Z79.01 Long term (current) use of anticoagulants; I71.9 Aortic aneurysm of unspecified site, without rupture; I73.9 Peripheral vascular disease, unspecified; J45.909 Unspecified asthma, uncomplicated; M06.9 Rheumatoid arthritis, unspecified; M19.90 Unspecified osteoarthritis, unspecified site; M79.7 Fibromyalgia; M79.81 Nontraumatic hematoma of soft tissue; R31.0 Gross hematuria; S40.022A Contusion of left upper arm, initial encounter; T45.515A Adverse effect of anticoagulants, initial encounter; Z68.36 Body mass index [BMI] 36.0-36.9, adult; Z79.899 Other long term (current) drug therapy; Z82.49 Family history of ischemic heart disease and other diseases of the circulatory system; Z87.440 Personal history of urinary (tract) infections; Z90.710 Acquired absence of both cervix and uterus; Z90.49 Acquired absence of other specified parts of digestive tract; M54.9 Dorsalgia, unspecified
CPT/HCPCS: 36415; 36430; 71045; 72192; 74177; 80048; 80053; 81001; 83605; 85025; 85027; 85610; 85730; 86850; 86900; 86901; 87040; 87086; 93005; 93970; 96365; 96367; 99291

== ENCOUNTER 2019-04-20 14:31 | Emergency (ER) | payer OTHER ==
[2019-04-20 15:14] VITALS: BP 138/83; PULSE 75; RESP 18; TEMP 98.5
[2019-04-20] MEDS ORDERED: BUPIVACAINE (PF) 0.5% 30 ML VIAL SQ STA (15:34)
--- NOTE | 2019-04-20 15:34 | ED ---
ENT HPI - General Chief complaint: Dental/Oral Stated complaint: Dental pain Time Seen by Provider: 04/20/19 15:18 Source: patient, RN notes reviewed, old records reviewed Mode of arrival: ambulatory Limitations: no limitations - History of Present Illness Initial comments: 58 year old female, presents with R sided facial swelling and dental pain. She r eports she has poor dentition and is planning to follow up with dentist. She denies fevers, trismus. Denies recent antibiotic use. - Related Data Home Medications Medication Instructions Recorded Confirmed Folic Acid 1 mg PO DAILY 07/20/15 02/27/19 Hydroxychloroquine Sulfate 200 mg PO BID 07/20/15 02/27/19 [Plaquenil] Ipratropium [place] [Atrovent Hfa] 2 puff INHALATION RT-QID PRN 11/12/17 02/27/19 Ranitidine HCl [Zantac] 150 mg PO BID 11/12/17 02/27/19 Methotrexate 50mg/2ml 25 mg IM MO 07/14/18 02/27/19 Metoprolol Tartrate [Lopressor] 50 mg PO BID 07/14/18 02/27/19 Oxybutynin Chloride [Ditropan] 5 mg PO DAILY 07/14/18 02/27/19 predniSONE See Taper PO DIRECTED 07/14/18 02/27/19 Atorvastatin [Lipitor] 20 mg PO DAILY 02/22/19 02/27/19 DULoxetine HCL [Cymbalta] 30 mg PO DAILY 02/22/19 02/27/19 Lisinopril [Zestril] 10 mg PO DAILY 02/22/19 02/27/19 QUEtiapine FUMARATE [SEROquel] 300 mg PO HS 02/22/19 02/27/19 Adalimumab [Humira] 80 mg SQ Q14D 02/27/19 02/27/19 Albuterol Inhaler [Ventolin Hfa 2 puff INHALATION RT-Q6H PRN 02/27/19 02/27/19 Inhaler] Brimonidine Tartrate/Timolol 1 drop RIGHT EYE BID 02/27/19 02/27/19 [Combigan 0.2%-0.5% Eye Drops] Ferrous Sulfate [Iron] 325 mg PO DAILY 02/27/19 02/27/19 Gabapentin [Neurontin] 200 mg PO DAILY 02/27/19 02/27/19 prednisoLONE ACETATE 1% OPHTH 1 drop RIGHT EYE QID 02/27/19 02/27/19 [Pred Forte 1%] Previous Rx's Medication Instructions Recorded Clindamycin [Cleocin] 450 mg PO TID 7 Days capsule 04/20/19 Allergies Allergy/AdvReac Type Severity Reaction Status Date / Time phenobarbital Allergy rash & Verified 02/27/19 13:53 swells up Review of Systems ROS Statement: Those systems with pertinent positive or pertinent negative responses have been documented in the HPI. ROS Other: All systems not noted in ROS Statement are negative. Past Medical History Past Medical History: Asthma, Deep Vein Thrombosis (DVT), Fibromyalgia, Hypertension, Osteoarthritis (OA), Pulmonary Embolus (PE), Rheumatoid Arthritis (RA), Sleep Apnea/CPAP/BIPAP, Vascular Disorder Additional Past Medical History / Comment(s): Obesity, aortic dissection involving the thoracic arch and descending aorta diagnosed back in October 2017 and has been stable since, severe obstructive sleep apnea with an AHI of 63 maintained on CPAP pressure of 10 cm of water, peripheral vascular disease, chronic anemia, history of left breast cysts, chronic back pain, History of Any Multi-Drug Resistant Organisms: None Reported Past Surgical History: Section, Cholecystectomy, Tubal Ligation Additional Past Surgical History / Comment(s): Colonoscopy Past Anesthesia/Blood Transfusion Reactions: No Reported Reaction Past Psychological History: Depression Smoking Status: Never smoker Past Alcohol Use History: None Reported Past Drug Use History: None Reported - Past Family History Father Family Medical History: Myocardial Infarction (CA), Renal Disease Additional Family Medical History / Comment(s): Father of a CA at the age of 36 yrs. Mother Family Medical History: No Reported History Additional Family Medical History / Comment(s): Mother is healthy and 75 yrs old. General Exam - General Exam Comments Initial Comments: 58 year old female, no distress. Limitations: no limitations General appearance: alert, in no apparent distress Head exam: Present: atraumatic, normocephalic, normal inspection Eye exam: Present: normal appearance, PERRL, EOMI. Absent: scleral icterus, conjunctival injection, periorbital swelling ENT exam: Present: normal exam, mucous membranes moist, other (Poor dentition over R upper molars, Erythmea and swelling over R cheek. ) Neck exam: Present: normal inspection. Absent: tenderness, meningismus, lymphadenopathy Respiratory exam: Present: normal lung sounds bilaterally. Absent: respiratory distress, wheezes, rales, rhonchi, stridor Cardiovascular Exam: Present: regular rate, normal rhythm, normal heart sounds. Absent: systolic murmur, diastolic murmur, rubs, gallop, clicks Back exam: Present: normal inspection Neurological exam: Present: alert, oriented X3, CN II-XII intact Psychiatric exam: Present: normal affect, normal mood Skin exam: Present: warm, dry, intact, normal color. Absent: rash Course Vital Signs 04/20/19 15:11 Temperature 98.5 F Pulse Rate 75 Respiratory 18 Rate Blood Pressure 138/83 O2 Sat by Pulse 98 Oximetry Procedures - Nerve Block Local Anesthetic Used: Marcaine 0.5% Amount of anesthesia used: 4 Side: right Intraoral Nerve Block: superior alveolar Procedure Successful: Yes Patient Tolerated Procedure: well, no complications Medical Decision Making - Medical Decision Making 58 year old female wiht R sided dental pain and abscess presents to ED for pain after 2 days. She was given superior alveolar block. Discussed attempt to drain abscess as well, but only small amount of pus removed from 18g needle. Placed patient on Clindamycin and advised close dental follow up. Return parameters discussed. Disposition Clinical Impression: Dental abscess Disposition: HOME SELF-CARE Condition: Good Instructions (If sedation given, give patient instructions): Dental Abscess (ED) Additional Instructions: Please use medication as discussed. Please follow up with family doctor if symptoms have not improved over the next two days. Please return to the emergency room if your symptoms increase or worsen or for any other concerns. [facility] [place] [address] [place] [address] [phone] (existing clients only) For new clients: [phone] 1st consult: $50 (includes Xrays) Usually 30% less then private dentist for visits after. [employer] Have to pay $50 for Xrays anmd rest is covered. [phone] Prescriptions: Clindamycin [Cleocin] 450 mg PO TID 7 Days capsule Is patient prescribed a controlled substance at d/c from ED?: No Referrals: Shana Schmidt DO [Primary Care Provider] - 1-2 days Time of Disposition: 16:31
[2019-04-20] MEDS ORDERED: CLINDAMYCIN 150 MG CAP PO STA (15:49)
[2019-04-20] MEDS ORDERED: ACET/COD 300 MG/30 MG STARTER PACK 6 TAB BTL PO STA (16:33)
== END 2019-04-20 16:44 | disposition home or self-care (01) ==
LOC: EC 14:31
DX: K04.7 Periapical abscess without sinus (principal); J45.909 Unspecified asthma, uncomplicated; I10 Essential (primary) hypertension; G47.30 Sleep apnea, unspecified; F32.9 Major depressive disorder, single episode, unspecified; M06.9 Rheumatoid arthritis, unspecified; E66.9 Obesity, unspecified; Z68.36 Body mass index [BMI] 36.0-36.9, adult; Z79.899 Other long term (current) drug therapy; Z88.8 Allergy status to other drugs, medicaments and biological substances; Z99.89 Dependence on other enabling machines and devices
CPT/HCPCS: 41800; 99283

== ENCOUNTER 2020-07-20 18:37 | Emergency (ER) | payer MEDICARE, OTHER ==
[2020-07-20 18:58] VITALS: BP 104/71; PULSE 85; RESP 19; TEMP 98.3
[2020-07-20] MEDS ORDERED: LIDOCAINE 1% INJ 10MG/ML (20 ML MDV) SQ ONE (19:12)
[2020-07-20] MEDS ORDERED: DIPH,PERTUS(ACELL)TETVAC-LF 0.5 ML VIAL IM ONE (19:13)
--- NOTE | 2020-07-20 19:16 | ED ---
General Adult HPI - General Chief complaint: Wound/Laceration Stated complaint: rt hand injury Time Seen by Provider: 07/20/20 19:03 Source: patient, RN notes reviewed Mode of arrival: ambulatory Limitations: no limitations - History of Present Illness Initial comments: 59-year-old female with a significant past medical history presents to the emergency room for a chief complaint of right hand laceration. Patient was walking her dog when he lunged at someone and the leash caught her hand between her thumb and forefinger. Patient denies any pain in her hand. Denies any other injury. She is unsure of when her last tetanus shot was.Patient has no other complaints at this time including shortness of breath, chest pain, abdominal pain, nausea or vomiting, headache, or visual changes. - Related Data Home Medications Medication Instructions Recorded Confirmed Folic Acid 1 mg PO DAILY 07/20/15 02/27/19 Hydroxychloroquine Sulfate 200 mg PO BID 07/20/15 02/27/19 [Plaquenil] Ipratropium [place] [Atrovent Hfa] 2 puff INHALATION RT-QID PRN 11/12/17 02/27/19 Ranitidine HCl [Zantac] 150 mg PO BID 11/12/17 02/27/19 Methotrexate 50mg/2ml 25 mg IM MO 07/14/18 02/27/19 Metoprolol Tartrate [Lopressor] 50 mg PO BID 07/14/18 02/27/19 Oxybutynin Chloride [Ditropan] 5 mg PO DAILY 07/14/18 02/27/19 predniSONE See Taper PO DIRECTED 07/14/18 02/27/19 Atorvastatin [Lipitor] 20 mg PO DAILY 02/22/19 02/27/19 DULoxetine HCL [Cymbalta] 30 mg PO DAILY 02/22/19 02/27/19 QUEtiapine FUMARATE [SEROquel] 300 mg PO HS 02/22/19 02/27/19 lisinopriL [Zestril] 10 mg PO DAILY 02/22/19 02/27/19 Adalimumab [Humira] 80 mg SQ Q14D 02/27/19 02/27/19 Albuterol Inhaler (Mhu) [Ventolin 2 puff INHALATION RT-Q6H PRN 02/27/19 02/27/19 Hfa Inhaler (Mhu)] Brimonidine Tartrate/Timolol 1 drop RIGHT EYE BID 02/27/19 02/27/19 [Combigan 0.2%-0.5% Eye Drops] Ferrous Sulfate [Iron] 325 mg PO DAILY 02/27/19 02/27/19 Gabapentin [Neurontin] 200 mg PO DAILY 02/27/19 02/27/19 prednisoLONE ACETATE 1% OPHTH 1 drop RIGHT EYE QID 02/27/19 02/27/19 [Pred Forte 1%] Previous Rx's Medication Instructions Recorded Clindamycin [Cleocin] 450 mg PO TID 7 Days capsule 04/20/19 Allergies Allergy/AdvReac Type Severity Reaction Status Date / Time phenobarbital Allergy rash & Verified 02/27/19 13:53 swells up Review of Systems ROS Statement: Those systems with pertinent positive or pertinent negative responses have been documented in the HPI. ROS Other: All systems not noted in ROS Statement are negative. Past Medical History Past Medical History: Asthma, Deep Vein Thrombosis (DVT), Fibromyalgia, Hypertension, Osteoarthritis (OA), Pulmonary Embolus (PE), Rheumatoid Arthritis (RA), Sleep Apnea/CPAP/BIPAP, Vascular Disorder Additional Past Medical History / Comment(s): Obesity, aortic dissection involving the thoracic arch and descending aorta diagnosed back in October 2017 and has been stable since, severe obstructive sleep apnea with an AHI of 63 maintained on CPAP pressure of 10 cm of water, peripheral vascular disease, chronic anemia, history of left breast cysts, chronic back pain, History of Any Multi-Drug Resistant Organisms: None Reported Past Surgical History: Section, Cholecystectomy, Tubal Ligation Additional Past Surgical History / Comment(s): Colonoscopy Past Anesthesia/Blood Transfusion Reactions: No Reported Reaction Past Psychological History: Depression Smoking Status: Never smoker Past Alcohol Use History: None Reported Past Drug Use History: None Reported - Past Family History Father Family Medical History: Myocardial Infarction ([place]), Renal Disease Additional Family Medical History / Comment(s): Father of a [place] at the age of 36 yrs. Mother Family Medical History: No Reported History Additional Family Medical History / Comment(s): Mother is healthy and 75 yrs old. General Exam Limitations: no limitations General appearance: alert, in no apparent distress Head exam: Present: atraumatic, normocephalic, normal inspection Eye exam: Present: normal appearance, PERRL, EOMI. Absent: scleral icterus, conjunctival injection, periorbital swelling ENT exam: Present: normal exam, mucous membranes moist Neck exam: Present: normal inspection, full ROM. Absent: tenderness, meningismus, lymphadenopathy Respiratory exam: Present: normal lung sounds bilaterally. Absent: respiratory distress, wheezes, rales, rhonchi, stridor Cardiovascular Exam: Present: regular rate, normal rhythm, normal heart sounds. Absent: systolic murmur, diastolic murmur, rubs, gallop, clicks Extremities exam: Present: full ROM (Full range of motion of the right hand including the first and second digits.), normal capillary refill (Capillary refill less than 2 seconds in all digits of the right hand. Radial pulse is 2+.), other (Sensation intact right upper extremity.). Absent: tenderness (No tenderness to the right hand except for directly over the laceration site. No tenderness to the metacarpals or phalanges. No wrist tenderness. No tenderness to the anatomical snuffbox.) Course Vital Signs 07/20/20 18:54 Temperature 98.3 F Pulse Rate 85 Respiratory 19 Rate Blood Pressure 104/71 O2 Sat by Pulse 96 Oximetry Procedures - Laceration Laceration #1 Consent Obtained: verbal consent Indication: laceration Site: hand Size (cm): 3 Description: linear Depth: simple, single layer Anesthetic Used: lidocaine 1% Anesthesia Technique: local infiltration Amount (mls): 5 Pre-repair: wound explored, irrigated extensively Type of Sutures: nylon Size of Sutures: 5-0 Number of Sutures: 6 Technique: simple, interrupted Patient Tolerated Procedure: well, no complications Medical Decision Making - Medical Decision Making Vitals are stable. HPI and physical exam as documented. Patient is not requiring x-ray at this time. She has no tenderness in the left hand aside from laceration site. No pain with movement of the left hand. Laceration repaired. At this time I discussed care parameters. Patient can follow up with primary care. She'll return here for any worsening symptoms. Disposition Clinical Impression: Laceration Disposition: HOME SELF-CARE Condition: Good Instructions (If sedation given, give patient instructions): Laceration (ED), Care For Your Stitches (ED) Additional Instructions: Please follow up with primary care in 1-2 days. In the meantime monitor for any signs of infection. These could include spreading or streaking redness, drainage, or fever. If this occurs return to the ER. Otherwise return in 10 days for suture removal. Is patient prescribed a controlled substance at d/c from ED?: No Referrals: Shana Schmidt DO [Primary Care Provider] - 1-2 days Time of Disposition: 20:09
== END 2020-07-20 20:15 | disposition home or self-care (01) ==
LOC: EC 18:37
DX: S61.411A Laceration without foreign body of right hand, initial encounter (principal); Y93.K1 Activity, walking an animal; W23.1XXA Caught, crushed, jammed, or pinched between stationary objects, initial encounter; E66.9 Obesity, unspecified; G47.33 Obstructive sleep apnea (adult) (pediatric); I10 Essential (primary) hypertension; J45.909 Unspecified asthma, uncomplicated; Z79.899 Other long term (current) drug therapy; Z86.711 Personal history of pulmonary embolism; Z86.718 Personal history of other venous thrombosis and embolism; F32.9 Major depressive disorder, single episode, unspecified; Z23 Encounter for immunization
CPT/HCPCS: 90715; 99283; 12002; 90471; J2001

== ENCOUNTER → 2020-10-05 | Outpatient (CLI) | payer MEDICARE, OTHER ==
--- NOTE | 2020-10-10 13:30 | MM ---
Reason for exam: screening (asymptomatic). Last mammogram was performed 3 years and 9 months ago. History: Patient is postmenopausal. Family history of breast cancer in aunt at age 47 and breast cancer in cousin. Benign left US cyst aspiration of the left breast, September 24, 2005. Benign US left CoreBiopsy of the left breast, September 24, 2005. Benign US left CoreBiopsy of the left breast, September 24, 2005. Took hormonal contraceptives for 4 years. Physical Findings: A clinical breast exam by your physician is recommended on an annual basis and results should be correlated with mammographic findings. MG 3D Screening Mammo W/Cad Bilateral CC and MLO view(s) were taken. XCCL view(s) were taken of the left breast. Prior study comparison: December 26, 2016, bilateral MG screening mammo w CAD. December 26, 2015, bilateral MG screening mammo w CAD. The breast tissue is heterogeneously dense. This may lower the sensitivity of mammography. Finding: There is a 12 mm circumscribed oval mass located 6 cm from the nipple in the anterior position of the left breast on MLO 41/84 and CC 33/76. 5mm round nodule slightly outer right breast on MLO 22/96 and CC 24/78. ASSESSMENT: Incomplete: need additional imaging evaluation, BI-RAD 0 RECOMMENDATION: Ultrasound of both breasts. [facility] will attempt to contact patient to return for ultrasound.
== END | disposition home or self-care (01) ==
LOC: RADMAMWWP 10:17
PROVIDERS: ATTEND Family Medicine
DX: Z12.31 Encounter for screening mammogram for malignant neoplasm of breast (principal); Z78.0 Asymptomatic menopausal state; Z80.3 Family history of malignant neoplasm of breast
CPT/HCPCS: 77063; 77067

== ENCOUNTER → 2020-10-26 | Outpatient (CLI) | payer MEDICARE, OTHER ==
--- NOTE | 2020-10-26 10:44 | USB ---
Reason for exam: additional evaluation requested from abnormal screening. History: Patient is postmenopausal. Family history of breast cancer in aunt at age 47 and breast cancer in cousin. Benign left US cyst aspiration of the left breast, September 24, 2005. Benign US left CoreBiopsy of the left breast, September 24, 2005. Benign US left CoreBiopsy of the left breast, September 24, 2005. Took hormonal contraceptives for 4 years. Physical Findings: Nurse did not find any significant physical abnormalities on exam. US Breast Workup Limited NIK Right limited breast ultrasound including focal area of concern, retroareolar and axilla demonstrates a 0.3 x 0.3 x 0.4cm lesion too small to characterize at 4 o'clock and a 0.5 x 0.4 x 0.5cm mixed lesion at 8 o'clock. Left limited breast ultrasound including focal area of concern, retroareolar and axilla demonstrates 1.0 x 0.9 x 1.0cm mixed lesion at 12 o'clock and a 0.7 x 0.7 x 0.7cm mixed lesion at 12 o'clock. Probably complex cysts versus fibroadenoma. These results were verbally communicated with the patient and result sheet given to the patient on 10/26/20. ASSESSMENT: Probably benign, BI-RAD 3 RECOMMENDATION: Ultrasound of the left breast in 6 months.
== END | disposition home or self-care (01) ==
LOC: RADUSWWP 08:29
PROVIDERS: ATTEND Family Medicine
DX: N64.89 Other specified disorders of breast (principal); Z78.0 Asymptomatic menopausal state; Z80.3 Family history of malignant neoplasm of breast

== ENCOUNTER → 2022-10-31 | Outpatient (CLI) | payer MEDICARE, OTHER ==
--- NOTE | 2022-11-03 08:28 | MM ---
Reason for Exam: Screening (asymptomatic). Last mammogram was performed 2 year(s) and 1 month(s) ago. Patient History: Menarche at age 13. First Full-Term at age 22. Postmenopausal. Patient used Hormonal Contraceptives for 4 years. 09/24/2005, Benign Core Biopsy on the left side. 09/24/2005, Benign Cyst Aspiration on the left side. 09/24/2005, Benign Core Biopsy on the left side. Maternal cousin had breast cancer. Maternal aunt had breast cancer, age 47. Risk Values: Sonali 5 year model risk: 2.1%. NCI Lifetime model risk: 10.6%. Prior Study Comparison: 12/26/2015 Bilateral Screening Mammogram, [facility]. 12/26/2016 Bilateral Screening Mammogram, [facility]. 10/05/2020 Bilateral Screening Mammogram, [facility]. Tissue Density: The breast tissue is heterogeneously dense. This may lower the sensitivity of mammography. Findings: Analyzed By CAD. There is no suspicious group of microcalcifications or new suspicious mass in either breast. Overall Assessment: Benign, BI-RAD 2 Management: Screening Mammogram of both breasts in 1 year. . Patient should continue monthly self-breast exams. A clinical breast exam by your physician is recommended on an annual basis. This exam should not preclude additional follow-up of suspicious palpable abnormalities. Note on Sonali scores and lifetime risk: 1. A Sonali score greater than 3% is considered moderate risk. If this is the case, consider specialist referral to assess eligibility for a risk reducing agent. 2. If overall lifetime risk for the development of breast cancer is 20% or higher, the patient may qualify for future screening with alternating mammogram and breast MRI. Electronically signed and approved by: Ean Mina DO
== END | disposition home or self-care (01) ==
LOC: RADMAMWWP 09:25
PROVIDERS: ATTEND Physician Assistant
DX: Z12.31 Encounter for screening mammogram for malignant neoplasm of breast (principal); Z78.0 Asymptomatic menopausal state; Z80.3 Family history of malignant neoplasm of breast
CPT/HCPCS: 77063; 77067

== ENCOUNTER → 2023-05-26 | Outpatient (CLI) | payer MEDICARE, OTHER ==
[2023-05-26 13:46] LABS: African American GFR (CKD) 72 (>60 ml/min/1.73 sqM); Blood Urea Nitrogen 8 mg/dL (7-17); Non-African American GFR(CKD) 62 (>60 ml/min/1.73 sqM)
--- NOTE | 2023-05-26 16:30 | CT ---
EXAMINATION TYPE: CT angio thor/abd pel aorta DATE OF EXAM: 05/26/2023 COMPARISON: 02/27/2019 HISTORY: f//u for PE and dissection CT DLP: 2508.4 mGycm, Automated exposure control for dose reduction was used. CONTRAST: Performed injected with 100 mL of Isovue 370. TECHNIQUE: Axial images were obtained at 5 mm thick sections. Reconstructed images are reviewed on t computer in the coronal plane. Three-D reconstructed images are performed on a separate computer b y technologists and reviewed. FINDINGS: Portion of the thyroid visualized is normal. No suspicious pulmonary emboli evident. No suspicious lung nodules or focal infiltrates are present. No enlarged mediastinal or hilar adenopathy is evident. The ascending aorta diameter at the level of the main pulmonary artery is 4.0 cm. The main pulmonary artery diameter at the bifurcation is 2.1 cm. Descending thoracic aorta tapers normally within the t horax. CT abdomen: Aorta: Celiac axis and superior mesenteric artery takeoffs appear normal. The lateral renal artery or igins appear normal. Just below the renal artery origins a dissection is evident. Contrast is within the left aspect of the aorta. A second contrast filled lumen is evident within the distal abdominal a handy. The AP diameter at this level is slightly more prominent than proximal with an AP dimension of 2.8 cm. The common iliac are patent bilaterally. Internal and external iliac vessels are patent. No d issection within the iliac vessels is evident. Some fatty infiltration of the liver may be present. Spleen appears unremarkable adrenal glands are n ormal. Pancreas is unremarkable. Gallbladder is vertically absent. Kidneys appear normal without mass es or hydronephrosis. Small cortical renal cyst is on the medial right kidney measuring 1.4 cm. Infer ior vena cava is normal Loops of bowel within the abdomen and pelvis without oral contrast are unremarkable. Uterus is normal . Adnexa are normal. Urinary bladder is unremarkable. IMPRESSION: 1. Abdominal distal aortic dissection with slight fusiform prominence. Finding appears over slightly shorter segment than prior exam. 2. Fatty infiltration of liver.
== END | disposition home or self-care (01) ==
LOC: RADCTMAIN 13:01
PROVIDERS: ATTEND Family Medicine
DX: K76.0 Fatty (change of) liver, not elsewhere classified (principal); I71.00 Dissection of unspecified site of aorta; Z86.79 Personal history of other diseases of the circulatory system
CPT/HCPCS: 82565; 84520; 71275; 36415; 74174; Q9967

== ENCOUNTER → 2024-01-04 | Outpatient (CLI) | payer MEDICARE, OTHER ==
--- NOTE | 2024-01-05 17:05 | MM ---
Reason for Exam: Screening (asymptomatic). Last mammogram was performed 1 year(s) and 2 month(s) ago. Patient History: Menarche at age 13. First Full-Term at age 22. Postmenopausal. Patient used Hormonal Contraceptives for 4 years. 09/24/2005, Benign Core Biopsy on the left side. 09/24/2005, Benign Cyst Aspiration on the left side. 09/24/2005, Benign Core Biopsy on the left side. Maternal cousin had breast cancer. Maternal aunt had breast cancer, age 47. Risk Values: Sonali 5 year model risk: 2.2%. NCI Lifetime model risk: 10.3%. Prior Study Comparison: 12/01/2013 Bilateral Screening Mammogram, [facility]. 12/07/2014 Bilateral Diagnostic Mammogram, [facility]. 12/26/2015 Bilateral Screening Mammogram, [facility]. 12/26/2016 Bilateral Screening Mammogram, [facility]. 10/05/2020 Bilateral Screening Mammogram, [facility]. 10/31/2022 Bilateral MG 3D screening mammo w/cad, [facility]. Tissue Density: The breasts are heterogeneously dense, which may obscure small masses. Findings: Analyzed By CAD. Chronic nodularity on the left. Microclip left breast from prior biopsy. There is no suspicious group of microcalcifications or new suspicious mass in either breast. Overall Assessment: Benign, BI-RAD 2 Management: Screening Mammogram of both breasts in 1 year. . Patient should continue monthly self-breast exams. A clinical breast exam by your physician is recommended on an annual basis. This exam should not preclude additional follow-up of suspicious palpable abnormalities. Note on Sonali scores and lifetime risk: 1. A Sonali score greater than 3% is considered moderate risk. If this is the case, consider specialist referral to assess eligibility for a risk reducing agent. 2. If overall lifetime risk for the development of breast cancer is 20% or higher, the patient may qualify for future screening with alternating mammogram and breast MRI. Electronically signed and approved by: Dima Weber M.D. Radiologist
== END | disposition home or self-care (01) ==
LOC: RADMAMWWP 11:12
PROVIDERS: ATTEND Family Medicine
DX: Z12.31 Encounter for screening mammogram for malignant neoplasm of breast
CPT/HCPCS: 77063; 77067